=== PATIENT | female | born 1990 | race Caucasian/White ===

== ENCOUNTER 2016-11-07 06:27 | Inpatient (IN) | payer OTHER ==
[2016-11-07 07:08] LABS: AMNISURE (ROM) POSITIVE (NEGATIVE)
[2016-11-07 07:11] LABS: APPEARANCE,URINE SLIGHTLY-CLOUDY; BILIRUBIN,URINE NEGATIVE (NEGATIVE); GLUCOSE, URINE NEGATIVE (NEGATIVE); KETONES,URINE NEGATIVE (NEGATIVE); LEUKOCYTE ESTERASE,URINE NEGATIVE (NEGATIVE); NITRITE,URINE NEGATIVE (NEGATIVE); PROTEIN,URINE NEGATIVE (NEGATIVE); URINE SPECIFIC GRAVITY 1.005; UROBILINOGEN,URINE NEGATIVE mg/dL (<2.0)
[2016-11-07] MEDS ORDERED: BUPIVACAINE HCL 0.25 % INJ/PF (2.5 MG/1 ML) 30 ML VIAL INFIL ONE (07:16)
[2016-11-07] MEDS ORDERED: FENTANYL/BUPIVACAINE/NS/PF 100 ML EPI PRN (07:16)
[2016-11-07] MEDS ORDERED: BENZOIN/ALOE VERA/STORAX/TOLU TINCTURE 60 ML TP PRN (07:16)
[2016-11-07] MEDS: RINGERS SOLUTION,LACTATED 1,000 ML IV PRN ×3 (07:24→12:01)
[2016-11-07] MEDS ORDERED: FENTANYL/BUPIVACAINE/NS/PF 200 MCG/100 ML RTUINJ EPI ONE (07:30)
[2016-11-07] MEDS ORDERED: BUPIVACAINE HCL 0.25 % INJ/PF (2.5 MG/1 ML) 30 ML VIAL ONE (07:30)
[2016-11-07] MEDS ORDERED: EPHEDRINE SULFATE INJ 50 MG/1 ML AMPULE ONE (07:30)
[2016-11-07 07:45] LABS: ABSOLUTE BASOPHILS # (AUTO) 0.1 10^3/uL (0.0-0.2); ABSOLUTE EOSINOPHILS # (AUTO) 0.1 10^3/uL (0.0-0.6); ABSOLUTE LYMPHOCYTES (AUTO) 2.6 10^3/uL (0.5-4.7); ABSOLUTE MONOCYTES (AUTO) 0.9 10^3/uL (0.1-1.4); ABSOLUTE NEUT (AUTO) 8.4 10^3/uL (1.7-8.2); BASOPHILS % (AUTO) 0.5 % (0-2); EOSINOPHILS % (AUTO) 1.2 % (0-6); HEMATOCRIT 33.3 % (36.0-47.0); HEMOGLOBIN 11.4 g/dL (12.0-15.5); HGB HCT DIFFERENCE 0.9; LYMPHOCYTES % (AUTO) 21.8 % (13-45); MEAN CORPUSCULAR HEMOGLOBIN 29.7 pg (27.0-33.4); MEAN CORPUSCULAR HGB CONC 34.2 g/dL (32.0-36.0); MEAN CORPUSCULAR VOLUME 87 fl (80-97); RED BLOOD COUNT 3.84 10^6/uL (3.72-5.28); RED CELL DISTRIBUTION WIDTH 12.8 % (11.5-14.0); SEGMENTED NEUTROPHILS % (AUTO) 69.5 % (42-78); WHITE BLOOD COUNT 12.1 10^3/uL (4.0-10.5)
--- NOTE | 2016-11-07 08:01 | L&D Flow Sheet ---
LD Flowsheet Datetime Report Generated by CPN: 11/07/2016 08:00 Datetime: 11/07/2016 07:58 Procedure TIME OUT Procedure Type: Epidural (Amira King RN) Procedure Verify: Correct Patient Identity; Correct Side and Site are Marked; Accurate Procedure Consent Form; Agreement on Procedure to be Done; Correct Patient Position; Relevant Images and Results are Properly Labeled and Displayed; Addressed Need to Administer Antibiotics or Fluids for Irrigation; Safety Precautions Based on Patient History or Medication Use (Amira Fernando, RN) Anesthesia Anesthesia Plans: Epidural (Amira King, RN) Epidural Positioning: Sitting (Amira King, RN) Anesthesia Comments: Dr Estrada at Bedside (Amira King RN) Datetime: 11/07/2016:48 Procedure TIME OUT Procedure Type: Epidural (Amira King, DALY) Procedure Verify: Correct Patient Identity; Accurate Procedure Consent Form; Agreement on Procedure to be Done; Relevant Images and Results are Properly Labeled and Displayed; Addressed Need to Administer Antibiotics or Fluids for Irrigation; Safety Precautions Based on Patient History or Medication Use (Amirarachel King, RN) Anesthesia Anesthesia Plans: Epidural (Amira King RN) Anesthesia Comments: Dr Sean notified of epidural request (Amira KingDALY) Datetime: 11/07/2016 07:30 Uterine Activity Monitor Mode: External; Palpation (Mitali Will RN) Frequency (min): 2-4 (Mitali Will RN) Quality: Moderate (Mitali Will RN) Duration (sec): 60-90 (Mitlai Baidy, RN) Duration Criteria: Less than Two 120 Second Contractions (Mitali Will, RN) Pattern: Normal: <= 5 Contractions in 10 Minutes (Mitali Will, RN) Resting Tone (Palpate): Relaxed (Mitali Will, RN) Assessment A Monitor Mode: External US (Mitali Will, RN) FHR Baseline Rate : 130 (Mitali Will, RN) Variability: Minimal - Undetectable to <=5 bpm (Mitali Will, RN) Accelerations: 15X15 (Mitali Will, RN) Decelerations: Variable (Mitali Will, RN) Datetime: 11/07/2016 07:25 Anesthesia Comments: requesting epidural, ivf bolus intitiated (Anum Kosstefan, RN) Communication Communication Comments: Report to RN Fernando, Care relinquished. (Anum Kossmann, RN) Datetime: 11/07/2016 07:24 Patient Care IV/Blood Work: IV Started; IV Bolus Started (Amira Fernando, RN) Patient Care Comments: LR IVF bolus for epidural started (Amira Fernando, RN) Procedure TIME OUT Procedure Type: Epidural (Amira Fernando, RN) Procedure Verify: Correct Patient Identity; Accurate Procedure Consent Form; Agreement on Procedure to be Done; Addressed Need to Administer Antibiotics or Fluids for Irrigation; Safety Precautions Based on Patient History or Medication Use (Amira Fernando, RN) Anesthesia Anesthesia Plans: Epidural (Amira Fernando, RN) Datetime: 11/07/2016:55 Vital Signs NBP Sys/Ilana/Mean (mmHg): 118 (QS system process) : 76 (QS system process) : 92 (QS system process) Pulse: 120 (QS system process) Datetime: 11/07/2016 06:50 Vaginal Exam Dilatation (cm): 3.0 (Anum Trinh RN) Effacement (%): 50 (Anum Trinh RN) Station: -3 (Anum Trinh RN) Exam by: daly trinh (Anum Trinh RN) Membrane Status: Ruptured (Anum Trinh RN) Membranes Ruptured Date/Time: 11/07/2016 05:00 (Anum Trinh RN) Membranes Rupture Method: Spontaneous (Anum Trinh RN) Amniotic Fluid Color: Clear (Anum Trinh RN) Amniotic Fluid Amount: Small (Anum Trinh RN) Amniotic Fluid Odor: Normal (Anum Trinh RN) Roman's Score Dilatation (cm): 3-4 cms (Anum Kossmann, RN) Effacement: 40-50_ effaced (Anum Kossmann, RN) Station: minus 3 (Anum Kossmann, RN) Consistency: Medium (Anum Kossmann, RN) Position: Posterior (Anum Kossmann, RN) Total Roman's Score: 4 (QS system process) : 0-4 = Unfavorable cervix (QS system process) Datetime: 11/07/2016 06:45 Frequency (min): 3-4minutes (Anum Kossmann, RN) Pain Pain Scale: 3 (Anum Trinh RN) Pain Presence: Intermittent (Anum Trinh RN) Pain Type: Contraction (Anum Trinh RN) Pain Location: Abdomen; Back (Anum Trinh RN) Pain Relief Measures: Comfort Measures (Anum Trinh RN) Pain Coping: Talking Through Contractions; Breathing Through Contractions (Anum Trinh RN) Vaginal Bleeding: Scant (Anum Trinh RN) Maternal Assessment Level of Consciousness: Fully Conscious (Anum Trinh RN) DTR's/Clonus: DTRs 2+; No Clonus (Anum Trinh RN) Headache: Denies (Anum Trinh RN) Breath Sounds, Left: Clear and Equal (Anum Trinh RN) Breath Sounds, Right: Clear and Equal (Anum Trinh RN) Nausea/Vomiting: Denies (Anum Trinh RN) RUQ Epigastric Pain: Denies (Anum Trinh RN)
[2016-11-07] MEDS ORDERED: OXYTOCIN/NORMAL SALINE 20 UNIT/1,000 ML RTUINJ ONE (10:20)
[2016-11-07] MEDS ORDERED: MISOPROSTOL 0.2 MG TABLET ONE (10:20)
--- NOTE | 2016-11-07 12:00 | L&D Progress Notes ---
PROGRESS NOTES Datetime Report Generated by CPN: 11/07/2016 12:00 PROGRESS NOTE Impression: Reassuring Heart Rate Procedures: Sterile Vag Exam Plan: Augmentation Vital Signs : Reviewed; Within Normal Limits Comment: Pitocin VAGINAL EXAM Dilatation: 6 Dilatation: 3 Effacement: 80 Effacement: 50 Station: -1 Station: -3 Contractions: 2-4 MEMBRANES Membranes: Ruptured Amniotic Fluid Color: Clear Amniotic Fluid Color: Clear FETUS A FHR - Baseline: 135 Monitoring: External US Accelerations: 15X15 Decelerations: None FHR Category: Category I Estimated Weight (gm): 3400 Presentation: Vertex SIGNATURE SIGNATURE: [id number] Assignment: Mika Carter DO Signature: with User ID: [email or web address] : with User ID: Chrissy
--- NOTE | 2016-11-07 12:01 | L&D Flow Sheet ---
LD Flowsheet Datetime Report Generated by CPN: 11/07/2016 12:00 Datetime: 11/07/2016 11:56 Pitocin (milliunit): Pitocin Started (milliunits) @ 2 (Amira King RN) Datetime: 11/07/2016 11:50 Dilatation (cm): 6.0 (Amira King RN) Effacement (%): 80 (Amira King RN) Station: -1 (Amira King RN) Exam by: Maritza aHhn CNM (Amira King RN) Vaginal Bleeding: Normal Show (Amira King RN) Cervix, Consistency: Soft (Amira King RN) Cervix, Position: Anterior (Amira King RN) Communication Comments: Maritza Hahn CNM at bedside (Amira Kign RN) Datetime: 11/07/2016 11:45 NBP Sys/Ilana/Mean (mmHg): 118 (QS system process) : 73 (QS system process) : 90 (QS system process) Pulse: 100 (QS system process) Respirations: 16 (Amira King RN) Monitor Mode: External; Palpation (Amira King RN) Frequency (min): 2-4 (Amira King RN) Quality: Moderate (Amira King RN) Duration (sec): 50-80 (Amira King RN) Resting Tone (Palpate): Relaxed (Amira King RN) Monitor Mode: External US (Amira King RN) FHR Baseline Rate : 135 (Amira King RN) Variability: Moderate 6-25 bpm (Amira King RN) Accelerations: 15X15 (Amira King RN) Decelerations: None (Amira King RN) LaborFlag: Labor (QS system process) Datetime: 11/07/2016 11:30 NBP Sys/Ilana/Mean (mmHg): 132 (QS system process) : 78 (QS system process) : 100 (QS system process) Pulse: 96 (QS system process) Respirations: 16 (Amira Fernando, RN) Monitor Mode: External; Palpation (Amirarachel King, RN) Frequency (min): 2-4 (Amira Fernando, RN) Quality: Moderate (Amira Fernando, RN) Duration (sec): 50-70 (Amira Fernando, RN) Resting Tone (Palpate): Relaxed (Amirarachel King, RN) Monitor Mode: External US (Amira King, RN) FHR Baseline Rate : 135 (Amira Fernando, RN) Variability: Moderate 6-25 bpm (Amira Fernando, RN) Accelerations: 15X15 (Amira Fernando, RN) Decelerations: None (Amira Fernando, RN) LaborFlag: Labor (QS system process) Datetime: 11/07/2016 11:18 NBP Sys/Ilana/Mean (mmHg): 128 (QS system process) : 79 (QS system process) : 97 (QS system process) Pulse: 96 (QS system process) Respirations: 16 (Amira Fernando, RN) LaborFlag: Labor (QS system process) Datetime: 11/07/2016 11:15 Monitor Mode: External; Palpation (Amira Fernando, RN) Frequency (min): 3-5 (Amira Fernando, RN) Quality: Moderate (Amira Fernando, RN) Duration (sec): 50-70 (Amira Fernando, RN) Resting Tone (Palpate): Relaxed (Amira Fernando, RN) Monitor Mode: External US (Amira Fernando, RN) FHR Baseline Rate : 135 (Amira Fernando, RN) Variability: Moderate 6-25 bpm (Amira Fernando, RN) Accelerations: 10X10 (Amira Fernando, RN) Decelerations: Early (Amira Fernando, RN) Datetime: 11/07/2016 11:03 NBP Sys/Ilana/Mean (mmHg): 123 (QS system process) : 78 (QS system process) : 96 (QS system process) Pulse: 90 (QS system process) Respirations: 18 (Amira Fernando, RN) LaborFlag: Labor (QS system process) Datetime: 11/07/2016 11:00 Monitor Mode: External; Palpation (Amira Fernando, RN) Frequency (min): 3-4 (Amira Fernando, RN) Quality: Moderate (Amira Fernando, RN) Duration (sec): 50-70 (Amira Fernando, RN) Resting Tone (Palpate): Relaxed (Amira Fernando, RN) Monitor Mode: External US (Amira Fernando, RN) FHR Baseline Rate : 135 (Amira Fernando, RN) Variability: Moderate 6-25 bpm (Amira Fernando, RN) Decelerations: Early (Amira Fernando, RN) Datetime: 11/07/2016 10:49 NBP Sys/Ilana/Mean (mmHg): 122 (QS system process) : 75 (QS system process) : 94 (QS system process) Pulse: 82 (QS system process) Respirations: 18 (Amira Fernando, RN) LaborFlag: Labor (QS system process) Datetime: 11/07/2016 10:45 Monitor Mode: External; Palpation (Amira Fernando, RN) Frequency (min): 2-4 (Amira Fernando, RN) Quality: Moderate (Amira Fernando, RN) Duration (sec): 50-70 (Amira Fernando, RN) Resting Tone (Palpate): Relaxed (Amira Fernando, RN) Monitor Mode: External US (Amira Fernando, RN) FHR Baseline Rate : 135 (Amira Fernando, RN) Variability: Moderate 6-25 bpm (Amira Fernando, RN) Accelerations: 15X15 (Amira Fernando, RN) Decelerations: Early (Amira Fernando, RN) Datetime: 11/07/2016 10:43 Notification Reason: Status Update; Status; Labor Status; Uterine Activity; Other (Amirarachel King, RN) Communication Comments: Maritza Hahn CNM at desk. Informed about SVE, no new orders received. Will continue to monitor. (Amira Fernando, RN) Datetime: 11/07/2016 10:37 Monitor Interventions for UA: [place] Adjusted (Amira King RN) Patient Position/Activity: Right Lateral; Peanut Ball (Amira King RN) Datetime: 11/07/2016 10:35 NBP Sys/Ilana/Mean (mmHg): 114 (QS system process) : 82 (QS system process) : 93 (QS system process) Pulse: 97 (QS system process) Respirations: 18 (Amira King RN) LaborFlag: Labor (QS system process) Datetime: 11/07/2016 10:34 Dilatation (cm): 6.0 (Amira King RN) Effacement (%): 80 (Amira King RN) Station: 0 (Amira King RN) Exam by: José King RNC (Amira King RN) Vaginal Bleeding: Normal Show (Amira King RN) Cervix, Consistency: Moderate (Amira King RN) Cervix, Position: Anterior (Amira King RN) Hygiene: Radha Care; Underpad Changed (Amira King RN) Datetime: 11/07/2016 10:30 Monitor Mode: External; Palpation (Amira King RN) Frequency (min): 3-4 (Amira King RN) Quality: Moderate (Amira King RN) Duration (sec): 50-70 (Amira King RN) Resting Tone (Palpate): Relaxed (Amira King RN) Monitor Mode: External US (Amira King RN) FHR Baseline Rate : 125 (Amira King RN) Variability: Moderate 6-25 bpm (Amira King RN) Accelerations: 10X10 (Amira King RN) Decelerations: None (Amira King RN) Datetime: 11/07/2016 10:18 NBP Sys/Ilana/Mean (mmHg): 111 (QS system process) : 65 (QS system process) : 82 (QS system process) Pulse: 93 (QS system process) Respirations: 16 (Amira Fernando, RN) LaborFlag: Labor (QS system process) Datetime: 11/07/2016 10:15 Monitor Mode: External; Palpation (Amira King RN) Frequency (min): 2 (Amira King RN) Quality: Moderate (Amira King RN) Duration (sec): 50-70 (Amira King RN) Resting Tone (Palpate): Relaxed (Amira King RN) Monitor Mode: External US (Amira King RN) FHR Baseline Rate : 135 (Amira King, RN) Variability: Moderate 6-25 bpm (Amira Fernando, RN) Accelerations: 10X10 (Amira Fernando, RN) Decelerations: None (Amirarachel King, RN) Datetime: 11/07/2016 10:03 NBP Sys/Ilana/Mean (mmHg): 114 (QS system process) : 68 (QS system process) : 86 (QS system process) Pulse: 76 (QS system process) Respirations: 18 (Amira King RN) Temperature (F): 98.3 (Amirarachel King, RN) Temperature (C): 36.8 (QS system process) Temperature Route: Oral (Amira King, RN) LaborFlag: Labor (QS system process) Datetime: 11/07/2016 10:00 Monitor Mode: External; Palpation (Amirarachel King, RN) Frequency (min): 2-4 (Amira Fernando, RN) Quality: Moderate (Amira Fernando, RN) Duration (sec): 50-70 (Amira Fernando, RN) Resting Tone (Palpate): Relaxed (Amira Fernando, RN) Monitor Mode: External US (Amira Fernando, RN) FHR Baseline Rate : 130 (Amira Fernando, RN) Variability: Moderate 6-25 bpm (Amira Fernando, RN) Accelerations: 10X10 (Amira Fernando, RN) Decelerations: None (Amira Fernando, RN) Datetime: 11/07/2016 09:54 Patient Position/Activity: Left Lateral; Peanut Ball (Amira Fernando, RN) Datetime: 11/07/2016 09:48 NBP Sys/Ilana/Mean (mmHg): 126 (QS system process) : 74 (QS system process) : 95 (QS system process) Pulse: 76 (QS system process) LaborFlag: Labor (QS system process) Datetime: 11/07/2016 09:45 Monitor Mode: External; Palpation (Amira Fernando, RN) Frequency (min): 2-3 (Amira King, RN) Quality: Moderate (Amirarachel King, RN) Duration (sec): 50-70 (Amirarachel King, RN) Resting Tone (Palpate): Relaxed (Amirarachel King, RN) Monitor Mode: External US (Amira King, RN) FHR Baseline Rate : 125 (Amirarachel King, RN) Variability: Minimal - Undetectable to <=5 bpm (Amira Fernando, RN) Decelerations: Early (Amira Fernando, RN) Datetime: 11/07/2016 09:34 NBP Sys/Ilana/Mean (mmHg): 124 (QS system process) : 74 (QS system process) : 94 (QS system process) Pulse: 76 (QS system process) LaborFlag: Labor (QS system process) Datetime: 11/07/2016 09:30 Monitor Mode: External; Palpation (Amira King RN) Frequency (min): 2-3 (Amira King RN) Quality: Moderate (Amirarachel King, RN) Duration (sec): 50-70 (Amira King, RN) Resting Tone (Palpate): Relaxed (Amira King RN) Monitor Mode: External US (Amira King, RN) FHR Baseline Rate : 130 (Amirarachel King, RN) Variability: Minimal - Undetectable to <=5 bpm (Amira Fernando, RN) Decelerations: Early; Variable (Amira Fernando, RN) Datetime: 11/07/2016 09:19 NBP Sys/Ilana/Mean (mmHg): 125 (QS system process) : 66 (QS system process) : 90 (QS system process) Pulse: 80 (QS system process) Respirations: 18 (Amira Fernando, RN) LaborFlag: Labor (QS system process) Datetime: 11/07/2016 09:15 Monitor Mode: External; Palpation (Amira Fernando, RN) Frequency (min): 2-3 (Amira Fernando, RN) Quality: Moderate (Amira Fernando, RN) Duration (sec): 50-70 (Amira Fernando, RN) Resting Tone (Palpate): Relaxed (Amira Fernando, RN) Monitor Mode: External US (Amira Fernando, RN) FHR Baseline Rate : 130 (Amira Fernando, RN) Variability: Minimal - Undetectable to <=5 bpm (Amira Fernando, RN) Decelerations: Early; Variable (Amira Fernando, RN) Datetime: 11/07/2016 09:14 Patient Position/Activity: Right Lateral; Peanut Ball (Amira Fernando, RN) Datetime: 11/07/2016 09:12 Hygiene: Radha Care; Underpad Changed (Amira Fernando, RN) Datetime: 11/07/2016 09:03 NBP Sys/Ilana/Mean (mmHg): 115 (QS system process) : 66 (QS system process) : 86 (QS system process) Pulse: 89 (QS system process) LaborFlag: Labor (QS system process) Datetime: 11/07/2016 09:00 Monitor Mode: External; Palpation (Amira Fernando, RN) Frequency (min): 2-3 (Amira Fernando, RN) Quality: Moderate (Amira Fernando, RN) Duration (sec): 50-70 (Amira Fernando, RN) Resting Tone (Palpate): Relaxed (Amira Fernando, RN) Monitor Mode: External US (Amira Fernando, RN) FHR Baseline Rate : 130 (Amira Fernando, RN) Variability: Minimal - Undetectable to <=5 bpm (Amira Fernando, RN) Accelerations: 10X10 (Amira Fernando, RN) Decelerations: Early (Amira Fernando, RN) Datetime: 11/07/2016 08:49 NBP Sys/Ilana/Mean (mmHg): 117 (QS system process) : 60 (QS system process) : 83 (QS system process) Pulse: 78 (QS system process) LaborFlag: Labor (QS system process) Datetime: 11/07/2016 08:45 Monitor Mode: External; Palpation (Amira Fernando, RN) Frequency (min): 2-3 (Amira Fernando, RN) Quality: Moderate (Amira Fernando, RN) Duration (sec): 50-70 (Amira Fernando, RN) Resting Tone (Palpate): Relaxed (Amira Fernando, RN) Monitor Mode: External US (Amira Fernando, RN) FHR Baseline Rate : 130 (Amira Fernando, RN) Variability: Moderate 6-25 bpm (Amira Fernando, RN) Accelerations: 15X15 (Amira Fernadno, RN) Decelerations: Early (Amira Fernando, RN) Datetime: 11/07/2016 08:33 NBP Sys/Ilana/Mean (mmHg): 121 (QS system process) : 52 (QS system process) : 71 (QS system process) Pulse: 90 (QS system process) Respirations: 18 (Amira Fernando, RN) LaborFlag: Labor (QS system process) Datetime: 11/07/2016 08:32 NBP Sys/Ilana/Mean (mmHg): 127 (QS system process) : 74 (QS system process) : 96 (QS system process) Pulse: 86 (QS system process) LaborFlag: Labor (QS system process) Datetime: 11/07/2016 08:31 NBP Sys/Ilana/Mean (mmHg): 134 (QS system process) : 68 (QS system process) : 92 (QS system process) Pulse: 74 (QS system process) LaborFlag: Labor (QS system process) Datetime: 11/07/2016 08:30 NBP Sys/Ilana/Mean (mmHg): 139 (QS system process) : 70 (QS system process) : 95 (QS system process) Pulse: 88 (QS system process) Respirations: 16 (Amira King RN) Temperature (F): 98.5 (Amira King RN) Temperature (C): 36.9 (QS system process) Temperature Route: Oral (Amira King RN) Monitor Mode: External; Palpation (Amira King RN) Frequency (min): 2-3 (Amira King RN) Quality: Moderate (Amira King RN) Duration (sec): 50-70 (Amira King RN) Resting Tone (Palpate): Relaxed (Amira King RN) Monitor Mode: External US (Amira King RN) FHR Baseline Rate : 130 (Amira King RN) Variability: Moderate 6-25 bpm (Amira King RN) Accelerations: 15X15 (Amira King RN) Decelerations: Early (Amira King RN) Patient Position/Activity: Left Tilt (Amira King RN) LaborFlag: Labor (QS system process) Datetime: 11/07/2016 08:29 NBP Sys/Ilana/Mean (mmHg): 128 (QS system process) : 69 (QS system process) : 92 (QS system process) Pulse: 75 (QS system process) LaborFlag: Labor (QS system process) Datetime: 11/07/2016 08:28 NBP Sys/Ilana/Mean (mmHg): 127 (QS system process) : 72 (QS system process) : 93 (QS system process) Pulse: 80 (QS system process) LaborFlag: Labor (QS system process) Datetime: 11/07/2016 08:27 NBP Sys/Ilana/Mean (mmHg): 130 (QS system process) : 73 (QS system process) : 95 (QS system process) Pulse: 81 (QS system process) Respirations: 18 (Amira Feranndo, RN) LaborFlag: Labor (QS system process) Datetime: 11/07/2016 08:26 NBP Sys/Ilana/Mean (mmHg): 129 (QS system process) : 73 (QS system process) : 94 (QS system process) Pulse: 77 (QS system process) LaborFlag: Labor (QS system process) Datetime: 11/07/2016 08:25 NBP Sys/Ilana/Mean (mmHg): 123 (QS system process) : 76 (QS system process) : 95 (QS system process) Pulse: 77 (QS system process) LaborFlag: Labor (QS system process) Datetime: 11/07/2016 08:24 NBP Sys/Ilana/Mean (mmHg): 133 (QS system process) : 77 (QS system process) : 98 (QS system process) Pulse: 80 (QS system process) Respirations: 16 (Amira King RN) Pain Scale: 0 (Amira King RN) Pain Presence: None/Denies (Amira King RN) Pain Type: N/A (Amira King RN) Pain Goal: 2 (Amira King RN) Pain Assessment Comments: Patient comfortable w/ ctx (Amira King RN) Dilatation (cm): 3.0 (Amira King, RN) Effacement (%): 70 (Amira King, RN) Station: -1 (Amira King, RN) Exam by: José King RNC (Amira King, RN) Vaginal Bleeding: None (Amira King, RN) Cervix, Consistency: Moderate (Amira King, RN) Cervix, Position: Midposition (Amira King, RN) I/O Interventions: Rashid Cath Inserted (Amira King, RN) Patient Care Comments: 14Fr Rashid cath inserted under sterile technique w/ clear yellow urine returned, secured th left leg set to gravity drainage (Amira King, RN) LaborFlag: Labor (QS system process) Datetime: 11/07/2016 08:23 NBP Sys/Ilana/Mean (mmHg): 134 (QS system process) : 77 (QS system process) : 101 (QS system process) Pulse: 72 (QS system process) LaborFlag: Labor (QS system process) Datetime: 11/07/2016 08:22 NBP Sys/Ilana/Mean (mmHg): 131 (QS system process) : 81 (QS system process) : 101 (QS system process) Pulse: 92 (QS system process) LaborFlag: Labor (QS system process) Datetime: 11/07/2016 08:21 NBP Sys/Ilana/Mean (mmHg): 128 (QS system process) : 79 (QS system process) : 98 (QS system process) Pulse: 82 (QS system process) Respirations: 18 (Amiar King, RN) LaborFlag: Labor (QS system process) Datetime: 11/07/2016 08:20 NBP Sys/Ilana/Mean (mmHg): 123 (QS system process) : 73 (QS system process) : 93 (QS system process) Pulse: 75 (QS system process) LaborFlag: Labor (QS system process) Datetime: 11/07/2016 08:19 NBP Sys/Ilana/Mean (mmHg): 131 (QS system process) : 75 (QS system process) : 98 (QS system process) Pulse: 75 (QS system process) Respirations: 18 (Amira King RN) LaborFlag: Labor (QS system process) Datetime: 11/07/2016 08:18 NBP Sys/Ilana/Mean (mmHg): 130 (QS system process) : 73 (QS system process) : 94 (QS system process) Pulse: 88 (QS system process) LaborFlag: Labor (QS system process) Datetime: 11/07/2016 08:17 NBP Sys/Ilana/Mean (mmHg): 128 (QS system process) : 81 (QS system process) : 99 (QS system process) Pulse: 88 (QS system process) Respirations: 15 (Amira Fernando, RN) LaborFlag: Labor (QS system process) Datetime: 11/07/2016 08:16 NBP Sys/Ilana/Mean (mmHg): 131 (QS system process) : 78 (QS system process) : 98 (QS system process) Pulse: 85 (QS system process) LaborFlag: Labor (QS system process) Datetime: 11/07/2016 08:15 NBP Sys/Ilana/Mean (mmHg): 130 (QS system process) : 71 (QS system process) : 95 (QS system process) Pulse: 79 (QS system process) Monitor Mode: External; Palpation (Amira King, RN) Frequency (min): 2-5 (Amira King, RN) Quality: Moderate (Amira King, RN) Duration (sec): 50-70 (Amirarachel King, RN) Resting Tone (Palpate): Relaxed (Amira King, RN) Monitor Mode: External US (Amira King, RN) FHR Baseline Rate : 140 (Amirarachel King, RN) Variability: Moderate 6-25 bpm (Amira Fernando, RN) Accelerations: 15X15 (Amira Fernando, RN) Decelerations: None (Amira Fernando, RN) LaborFlag: Labor (QS system process) Datetime: 11/07/2016 08:14 NBP Sys/Ilana/Mean (mmHg): 134 (QS system process) : 73 (QS system process) : 99 (QS system process) Pulse: 109 (QS system process) Patient Position/Activity: Right Tilt; Supine (Amira King RN) LaborFlag: Labor (QS system process) Datetime: 11/07/2016 08:13 NBP Sys/Ilana/Mean (mmHg): 140 (QS system process) : 88 (QS system process) : 108 (QS system process) Pulse: 88 (QS system process) LaborFlag: Labor (QS system process) Datetime: 11/07/2016 08:12 NBP Sys/Ilana/Mean (mmHg): 140 (QS system process) : 90 (QS system process) : 106 (QS system process) Pulse: 86 (QS system process) Respirations: 16 (Amira King RN) LaborFlag: Labor (QS system process) Datetime: 11/07/2016 08:11 NBP Sys/Ilana/Mean (mmHg): 140 (QS system process) : 86 (QS system process) : 108 (QS system process) Pulse: 90 (QS system process) Pulse: 88 (QS system process) SpO2 (%): 100 (QS system process) LaborFlag: Labor (QS system process) Datetime: 11/07/2016 08:10 NBP Sys/Ilana/Mean (mmHg): 157 (QS system process) : 89 (QS system process) : 115 (QS system process) Pulse: 77 (QS system process) Epidural Procedure: Cath Placed (Amira King RN) LaborFlag: Labor (QS system process) Datetime: 11/07/2016 08:09 Epidural Procedure: Test Dose (Amira Fernando, RN) Datetime: 11/07/2016 08:06 Pulse: 85 (QS system process) SpO2 (%): 100 (QS system process) LaborFlag: Labor (QS system process) Datetime: 11/07/2016 08:01 Pulse: 86 (QS system process) SpO2 (%): 100 (QS system process) LaborFlag: Labor (QS system process) Datetime: 11/07/2016 08:00 Monitor Mode: External; Palpation (Amira King RN) Frequency (min): 2 (Amira King RN) Quality: Moderate (Amira King RN) Duration (sec): 50-70 (Amira King RN) Resting Tone (Palpate): Relaxed (Amira King RN) Monitor Mode: External US (Amira King RN) FHR Baseline Rate : 140 (Amira King RN) Variability: Moderate 6-25 bpm (Amira King RN) Accelerations: 15X15 (Amira King RN) Decelerations: Variable (Amira King RN)
[2016-11-07] MEDS ORDERED: OXYTOCIN/NORMAL SALINE 1,000 ML IV PRN ×2 (12:03→14:34)
[2016-11-07] MEDS ORDERED: LIDOCAINE 2% INJ-PF (20 MG/ML) 10 ML AMPUL ONE (12:38)
[2016-11-07] MEDS ORDERED: DIPHENHYDRAMINE HCL 50 MG/ML VIAL ONE (12:52)
[2016-11-07] MEDS ORDERED: DIPHENHYDRAMINE HCL 50 MG/ML VIAL IV ONE (14:00)
[2016-11-07] MEDS ORDERED: DIPH/PERTUSS(ACELL)/TETANUS VAC/PF 0.5 ML SYR (>=10YO) IM PRN (14:34)
[2016-11-07] MEDS ORDERED: DIBUCAINE 1% OINTMENT 28 GM TP PRN (14:34)
[2016-11-07] MEDS ORDERED: BENZOCAINE/MENTHOL AEROSOL SPRAY 56 ML TOP PRN (14:34)
[2016-11-07] MEDS ORDERED: MEASLES,MUMPS&RUBELLA VACC/PF 0.5 ML VIAL SUBCUT PRN (14:34)
[2016-11-07] MEDS ORDERED: ACETAMINOPHEN WITH CODEINE #3 TABLET PO PRN ×2 (14:34)
[2016-11-07] MEDS ORDERED: ZOLPIDEM TARTRATE 5 MG TABLET PO PRN (14:34)
--- NOTE | 2016-11-07 16:01 | L&D Flow Sheet ---
LD Flowsheet Datetime Report Generated by CPN: 11/07/2016 16:00 Datetime: 11/07/2016 15:30 NBP Sys/Ilana/Mean (mmHg): 121 (QS system process) : 71 (QS system process) : 91 (QS system process) Pulse: 83 (QS system process) Datetime: 11/07/2016 15:15 NBP Sys/Ilana/Mean (mmHg): 119 (QS system process) : 72 (QS system process) : 91 (QS system process) Pulse: 85 (QS system process) Datetime: 11/07/2016 15:00 NBP Sys/Ilana/Mean (mmHg): 120 (QS system process) : 64 (QS system process) : 84 (QS system process) Pulse: 171 (QS system process) Datetime: 11/07/2016 14:46 NBP Sys/Ilana/Mean (mmHg): 111 (QS system process) : 69 (QS system process) : 83 (QS system process) Pulse: 91 (QS system process) Respirations: 18 (Amirarachel King, RN) Datetime: 11/07/2016 14:30 NBP Sys/Ilana/Mean (mmHg): 106 (QS system process) : 54 (QS system process) : 74 (QS system process) Pulse: 105 (QS system process) Respirations: 18 (Amira King RN) Temperature (F): 98.4 (Amira King RN) Temperature (C): 36.9 (QS system process) Temperature Route: Oral (Amira King RN) Datetime: 11/07/2016 14:23 NBP Sys/Ilana/Mean (mmHg): 130 (QS system process) : 78 (QS system process) : 97 (QS system process) Pulse: 100 (QS system process) Datetime: 11/07/2016 14:22 Stage of : Recovery (Amira King RN) Respirations: 16 (Amira King RN) Pain Scale: 0 (Amira King RN) Pain Presence: None/Denies (Amira King RN) Pain Type: N/A (Amira King RN) Stage 2 Comments: pitocin bolus started (Amira King RN) Datetime: 11/07/2016 14:17 Vacuum: Off (Amira King RN) Stage 2 Comments: head delivered (Amira King RN) Datetime: 11/07/2016 14:15 NBP Sys/Ilana/Mean (mmHg): 161 (QS system process) : 100 (QS system process) : 121 (QS system process) Pulse: 136 (QS system process) Monitor Mode: External; Palpation (Amira King RN) Frequency (min): 1.5-2 (Amira King RN) Quality: Moderate to Strong (Amira King RN) Duration (sec): 50-70 (Amira King RN) Resting Tone (Palpate): Relaxed (Amira King RN) Monitor Mode: External US (Amira King RN) FHR Baseline Rate : 135 (Amira King RN) Variability: Moderate 6-25 bpm (Amira King RN) Accelerations: 10X10 (Amira Fernando, RN) Decelerations: Early; Variable; Prolonged (Amira Fernando, RN) Pitocin (milliunit): Pitocin Remains (milliunits) @ 4 (Amira King, RN) Vacuum: On (Amira King, RN) LaborFlag: Labor (QS system process) Datetime: 11/07/2016 14:14 Vacuum: Pop Off (Amira Fernando, RN) Datetime: 11/07/2016 14:12 Vacuum: On (Amira Fernando, RN) Datetime: 11/07/2016 14:10 Vacuum: On (Amira King, GANESH) Datetime: 11/07/2016 14:07 Communication Comments: Carter at bedside (Amira King RN) Datetime: 11/07/2016 14:00 Monitor Mode: External; Palpation (Sujatha Contreras RN) Frequency (min): 1.5-2 (Sujatha Contreras RN) Quality: Moderate (Sujatha Contreras RN) Duration (sec): 60-80 (Sujatha Contreras RN) Resting Tone (Palpate): Relaxed (Sujatha Contreras RN) Monitor Mode: External US (Sujatha Contreras RN) FHR Baseline Rate : 140 (Sujatha Contreras RN) Variability: Minimal - Undetectable to <=5 bpm (Sujatha Contreras RN) Accelerations: None (Sujatha Contreras RN) Decelerations: Early; Prolonged (Sujatha Contreras RN) Pitocin (milliunit): Pitocin Remains (milliunits) @ (Annotations: 4) (Amira King RN) Datetime: 11/07/2016 13:54 Pitocin (milliunit): Pitocin Increased to (milliunits) @ 4 (Amira King, RN) Patient Position/Activity: Left Tilt (Amira Fernando, RN) Datetime: 11/07/2016 13:46 Patient Position/Activity: Hands-Knees (Amira Fernando, RN) Datetime: 11/07/2016 13:45 Monitor Mode: External; Palpation (Sujathadanitza Contreras RN) Frequency (min): 1-3 (Sujatha Contreras, RN) Quality: Moderate (Sujatha Contreras RN) Duration (sec): 60-90 (Sujatha Contreras RN) Resting Tone (Palpate): Relaxed (Sujatha Contreras RN) Monitor Mode: External US (Sujatha Contreras RN) FHR Baseline Rate : 140 (Sujatha Contreras RN) Variability: Moderate 6-25 bpm (Sujatha Contreras RN) Accelerations: 15X15 (Sujatha Contreras RN) Decelerations: Variable (Sujatha Contreras RN) Pitocin (milliunit): Pitocin Remains (milliunits) @ (Annotations: 2) (Sujatha Contreras RN) Datetime: 11/07/2016 13:38 Pitocin (milliunit): Pitocin Started (milliunits) @ 2 (Amira King RN) Medication Comments: Per H. Jovani CNM (Amira King RN) Datetime: 11/07/2016 13:37 Pulse: 100 (QS system process) SpO2 (%): 100 (QS system process) LaborFlag: Labor (QS system process) Datetime: 11/07/2016 13:32 Pulse: 109 (QS system process) SpO2 (%): 100 (QS system process) LaborFlag: Labor (QS system process) Datetime: 11/07/2016 13:30 NBP Sys/Ilana/Mean (mmHg): 134 (QS system process) : 69 (QS system process) : 93 (QS system process) Pulse: 122 (QS system process) Monitor Mode: External; Palpation (Mitali Will RN) Frequency (min): 2-3 (Mitali Will RN) Quality: Moderate (Mitali Will RN) Duration (sec): 60-80 (Mitali Will RN) Duration Criteria: Less than Two 120 Second Contractions (Mitali Will RN) Pattern: Normal: <= 5 Contractions in 10 Minutes (Mitali Will RN) Resting Tone (Palpate): Relaxed (Mitali Will RN) Monitor Mode: External US (Mitali Will RN) FHR Baseline Rate : 135 (Mitali Will RN) Variability: Moderate 6-25 bpm (Mitali Will RN) Accelerations: 15X15 (Mitali Will, RN) Decelerations: Early (Mitali Will RN) LaborFlag: Labor (QS system process) Datetime: 11/07/2016 13:27 Pulse: 164 (QS system process) SpO2 (%): 100 (QS system process) LaborFlag: Labor (QS system process) Datetime: 11/07/2016 13:22 Pulse: 102 (QS system process) SpO2 (%): 99 (QS system process) Comments: O2 d/c (Amira King RN) Dilatation (cm): 10.0 (Amira King RN) Effacement (%): 100 (Amira King RN) Station: 0 (Amira King RN) Exam by: Maritza OSMAN (Amira King RN) LaborFlag: Labor (QS system process) Datetime: 11/07/2016 13:17 Pulse: 113 (QS system process) SpO2 (%): 100 (QS system process) LaborFlag: Labor (QS system process) Datetime: 11/07/2016 13:15 NBP Sys/Ilana/Mean (mmHg): 134 (QS system process) : 67 (QS system process) : 94 (QS system process) Pulse: 117 (QS system process) Monitor Mode: External; Palpation (Mitali Will RN) Frequency (min): 2-3 (Mitali Will RN) Quality: Moderate (Mitali Will RN) Duration (sec): 60-90 (Mitali Will RN) Duration Criteria: Less than Two 120 Second Contractions (Mitali Will RN) Pattern: Normal: <= 5 Contractions in 10 Minutes (Mitali Will RN) Resting Tone (Palpate): Relaxed (Mitali Will RN) Monitor Mode: External US (Mitali Will RN) FHR Baseline Changes: Unable to Determine (Mitali Will RN) Variability: Moderate 6-25 bpm (Mitali Will RN) Decelerations: Early; Prolonged (Mitali Will RN) LaborFlag: Labor (QS system process) Datetime: 11/07/2016 13:07 Oxygen Amount : 10 (Amira King, RN) Oxygen Method: Face Mask (Amira King, RN) Patient Position/Activity: Left Tilt (Amira Fernando, RN) Datetime: 11/07/2016 13:05 Comments: RN and provider remain at bedside continuously assessing FHR while pt pushing. (Amira King, RN) Pushing: Coached on Pushing; Urge to Push (Amira King, RN) Pushing Position: Pushing with Contractions (Amira King, RN) Stage 2 Comments: H. Jovani CNM remains at bedside. Patient coached on pushing. (Amira King, RN) Datetime: 11/07/2016 13:04 I/O Interventions: Rashid Discontinued (Amira King, RN) Datetime: 11/07/2016 13:02 Pitocin (milliunit): Pitocin Discontinued (Amira King, RN) Datetime: 11/07/2016 13:01 Dilatation (cm): 9.0 (Amira King RN) Effacement (%): 90 (Amira King RN) Station: 0 (Amira King RN) Exam by: H. Jovani CNM (Amira King RN) Vaginal Bleeding: Moderate (Amira King RN) Datetime: 11/07/2016 13:00 NBP Sys/Ilana/Mean (mmHg): 138 (QS system process) : 86 (QS system process) : 103 (QS system process) Pulse: 82 (QS system process) Monitor Mode: External; Palpation (Mitali Will RN) Frequency (min): 1.5-2.5 (Mitali Will RN) Quality: Moderate (Mitali Will RN) Duration (sec): 70-90 (Mitali Will RN) Duration Criteria: Less than Two 120 Second Contractions (Mitali Will RN) Pattern: Normal: <= 5 Contractions in 10 Minutes (Mitali Will RN) Resting Tone (Palpate): Relaxed (Mitali Will RN) Monitor Mode: External US (Mitali Will RN) FHR Baseline Rate : 130 (Mitali Will RN) Variability: Moderate 6-25 bpm (Mitali Will RN) Accelerations: 15X15 (Mitali Will RN) Decelerations: Early; Late (Mitali Will RN) Pitocin (milliunit): Pitocin Remains (milliunits) @ (Annotations: 2) (Amira King RN) Communication Comments: Maritza Hahn CN (Amira King RN) LaborFlag: Labor (QS system process) Datetime: 11/07/2016 12:59 Pitocin (milliunit): Pitocin Decreased to (milliunits) @ 2 (Amira King RN) IV/Blood Work: IV Bolus Started (Amira King RN) Datetime: 11/07/2016 12:48 NBP Sys/Ilana/Mean (mmHg): 139 (QS system process) : 83 (QS system process) : 105 (QS system process) Pulse: 81 (QS system process) Pitocin (milliunit): Pitocin Increased to (milliunits) @ 4 (Amira King RN) LaborFlag: Labor (QS system process) Datetime: 11/07/2016 12:47 Pain Scale: 3 (Amira King RN) Pain Presence: Intermittent (Amira King RN) Pain Type: Cramping; Contraction (Amira King RN) Pain Location: Abdomen; Back (Amira King RN) Pain Relief Measures: Comfort Measures (Amira King RN) Pain Coping: Breathing Through Contractions (Amira King RN) Pain Assessment Comments: Epidural bolused by Dr Estrada (Amira King RN) Comfort Measures: Breathing/Relaxation; Family Support (Amira King RN) Epidural Procedure Other: Redose (Amira King RN) Anesthesia Comments: Dr Estrada at bedside for epidural bolus (Amira King RN) LaborFlag: Labor (QS system process) Datetime: 11/07/2016 12:46 NBP Sys/Ilana/Mean (mmHg): 120 (QS system process) : 67 (QS system process) : 89 (QS system process) Pulse: 78 (QS system process) LaborFlag: Labor (QS system process) Datetime: 11/07/2016 12:45 Monitor Mode: External; Palpation (Mitali Will RN) Frequency (min): 2-3 (Mitali Will RN) Quality: Moderate (Mitali Will RN) Duration (sec): 70-90 (Mitali Will RN) Duration Criteria: Less than Two 120 Second Contractions (Mitali Will RN) Pattern: Normal: <= 5 Contractions in 10 Minutes (Mitali Will RN) Resting Tone (Palpate): Relaxed (Mitali Will RN) Monitor Mode: External US (Mitali Will RN) FHR Baseline Rate : 135 (Mitali Will, AGNESH) Variability: Moderate 6-25 bpm (Mitali Will, RN) Accelerations: 15X15 (Mitali Will RN) Decelerations: Early (Mitali Will RN) Pitocin (milliunit): Pitocin Remains (milliunits) @ (Annotations: 2 ) (Amira King RN) Datetime: 11/07/2016 12:35 Dilatation (cm): 6.0 (Amira King RN) Effacement (%): 90 (Amira King RN) Station: 0 (Amira King RN) Exam by: José King RN (Amira King RN) Vaginal Bleeding: Normal Show (Amira King RN) Cervix, Position: Anterior (Amira King, GANESH) Datetime: 11/07/2016 12:32 Patient Position/Activity: Left Lateral (Amira King RN) Datetime: 11/07/2016 12:31 NBP Sys/Ilana/Mean (mmHg): 143 (QS system process) : 93 (QS system process) : 113 (QS system process) Pulse: 106 (QS system process) LaborFlag: Labor (QS system process) Datetime: 11/07/2016 12:30 Monitor Mode: External; Palpation (Mitali Will RN) Frequency (min): 3-4 (Mitali Will RN) Quality: Moderate (Mitali Will RN) Duration (sec): 60-90 (Mitali Will RN) Duration Criteria: Less than Two 120 Second Contractions (Mitali Will RN) Pattern: Normal: <= 5 Contractions in 10 Minutes (Mitali Will, GANESH) Resting Tone (Palpate): Relaxed (Mitali Will RN) Monitor Mode: External US (Mitali Will RN) FHR Baseline Rate : 135 (Mitali Will RN) Variability: Moderate 6-25 bpm (Mitali Will RN) Accelerations: None (Mitali Will RN) Decelerations: Early (Mitali Will RN) Pitocin (milliunit): Pitocin Remains (milliunits) @ (Annotations: 2 ) (Amira King RN) Datetime: 11/07/2016 12:15 NBP Sys/Ilana/Mean (mmHg): 140 (QS system process) : 81 (QS system process) : 106 (QS system process) Pulse: 94 (QS system process) Respirations: 16 (Amira King RN) Monitor Mode: External; Palpation (Amira King RN) Frequency (min): 2-5 (Amira King RN) Quality: Moderate (Amira King RN) Duration (sec): 50-70 (Amira King RN) Resting Tone (Palpate): Relaxed (Amira King RN) Monitor Mode: External US (Amira King RN) FHR Baseline Rate : 135 (Amira King RN) Variability: Moderate 6-25 bpm (Amira King RN) Decelerations: Early (Amira King RN) Pitocin (milliunit): Pitocin Remains (milliunits) @ 2 (Amira King RN) LaborFlag: Labor (QS system process) Datetime: 11/07/2016 12:01 NBP Sys/Ilana/Mean (mmHg): 126 (QS system process) : 81 (QS system process) : 99 (QS system process) Pulse: 83 (QS system process) Respirations: 16 (Amira King RN) Temperature (F): 98.3 (Amira King RN) Temperature (C): 36.8 (QS system process) Temperature Route: Oral (Amira King RN) IV/Blood Work: IV Infusing per Order; New IV Bag Hung; IV Bag Number @ 3 (Amira King RN) LaborFlag: Labor (QS system process) Datetime: 11/07/2016 12:00 Monitor Mode: External; Palpation (Amira King RN) Frequency (min): 2-5 (Amira King RN) Quality: Moderate (Amira King RN) Duration (sec): 50-80 (Amira King RN) Resting Tone (Palpate): Relaxed (Amira King RN) Monitor Mode: External US (Amira King RN) FHR Baseline Rate : 130 (Amira King RN) Variability: Moderate 6-25 bpm (Amira King RN) Accelerations: 15X15 (Amira King RN) Decelerations: Early (Amira King RN) Pitocin (milliunit): Pitocin Remains (milliunits) @ 2 (Amira King RN)
--- NOTE | 2016-11-07 16:12 | Delivery Summary ---
Del Sum A-C Datetime Report Generated by CPN: 11/07/2016 16:12 ADMISSION DATA Chief Complaint: Uterine Contractions Indication for Induction: Not Applicable Admission Impression: Term, Intrauterine Admit Provider Comments: Pt presented to L _ D with c/o SROM at 0500, clear fluid uncomplicated care previous full term Denies medical hx GBS negative See hx for complete , medical, surgical hx Admit to L _ D pt may have epidural prn Anticipate DELIVERY PERSONNEL Delivery Doctor:: Mika Carter DO Nurse Back Tender Insulation Board Certified:: Dyan Hahn CNM Labor and Delivery Nurse:: Amira King RNvisual merchandising manager Nurse:: Mitali Will RN Nursery Nurse:: Daja Barnes RN Puttying And Calking Supervisor/DIFFERENTIAL SPECIALIST: Francisco Ortiz, RADHA MATERNAL INFORMATION Delivery Anesthesia: Epidural Medications After Delivery: Pitocin Drip 20 Units/1000ml NSS Estimated Blood Loss (ml): 200 Maternal Complications: None Provider Comments: Vacuum applied, pressure in green, 3 pulls, total time 1 minute, 1 pop off. Vaginal deliver, over intact perieneum, with spontaneous cry and respirations, to maternal abdomen skin to skin. Cord clamped X2, cut free by pts . Spontaneous delivery of intact placenta, via rose mechanism, 3 VC. Vagina and perineum inspected no lacerations noted, small 2 cm hematoma noted on perineum. Hemostasis acheived with external massage and IV pitocin. Mother and in stable condition. LABOR SUMMARY EDC: 11/04/2016 00:00 No. Babies in Womb: 1 Attempted: No Labor Anesthesia: Epidural LABOR INFORMATION Reason for Induction: Not Applicable Onset of Labor: 11/07/2016 04:30 Complete Dilatation: 11/07/2016 13:22 Oxytocin: Augmentation Group B Beta Strep: negative Antibiotics # of Doses: 0 Steroids Given: None Reason Steroids Not Administered: Not Applicable MEMBRANES Membranes Rupture Method: Spontaneous Rupture of Membranes: 11/07/2016 05:00 Length of Rupture (hr): 9.28 Amniotic Fluid Color: Clear Amniotic Fluid Amount: Small Amniotic Fluid Odor: Normal STAGES OF LABOR Stage 1 hr: 8 Stage 1 min: 52 Stage 2 hr: 0 Stage 2 min: 55 Stage 3 hr: 0 Stage 3 min: 5 Total Time in Labor hr: 9 Total Time in Labor min: 52 VAGINAL DELIVERY Episiotomy: None Laceration Extension: N/A Laceration Type: None Laceration Repair: Not Applicable Laceration Repair Note: n/A Sponge Count Correct: Yes Sharps Count Correct: Yes CSECTION DELIVERY Primary Indication: N/A Secondary Indication: N/A CSection Urgency: N/A CSection Incidence: N/A Labor: N/A Elective: N/A CSection Incision: N/A BABY A INFORMATION Delivery Date/Time: 11/07/2016 14:17 Method of Delivery: Vaginal Born in Route : No : N/A Forceps: N/A Vacuum Extraction: Successful Shoulder Dystocia : No ASSISTED DELIVERY BABY A Indication for Assisted Delivery: Maternal Exhaustion Catheter Prior to Procedure: Yes Station Vacuum/Forcep Apply: +2 Position Vacuum/Forcep Apply: Occiput Posterior Vacuum Number of Pulls: 4 Vacuum Number of PopOffs: 1 Vacuum Maximum Pressure Obtained: 550 Reduce Pressure btwn Ctx: No Vacuum Ice Skating Instructor: [place] Total Time Vacuum Applied: 5 PRESENTATION/POSITION BABY A Presentation: Cephalic Cephalic Presentation: Vertex Vertex Position: direct op Breech Presentation: N/A PLACENTA INFORMATION BABY A Placenta Delivery Time : 11/07/2016 14:22 Placenta Method of Delivery: Spontaneous Placenta Status: Delivered SCORES BABY A Heart Rate 1 min: >100 bpm Resp Effort 1 min: Good Cry Reflex Irritability 1 min: Cough or Sneeze or Pulls Away Muscle Tone 1 min: Active Motion Color 1 min: Body [place], Extremities Blue Resuscitation Effort 1 min: Tactile Stimulation SCORE 1 MIN: 9 Heart Rate 5 min: >100 bpm Resp Effort 5 min: Good Cry Reflex Irritability 5 min: Cough or Sneeze or Pulls Away Muscle Tone 5 min: Active Motion Color 5 min: Body [place], Extremities Blue SCORE 5 MIN: 9 INFORMATION BABY A Gestational Age at Delivery: 40.3 Gestational Status: Full Term- 39- 40.6 Weeks Infant Outcome : Liveborn Infant Condition : Stable Sex: Male IDENTIFICATION BABY A Infant Verification Date/Time: 11/07/2016 14:38 ID Band Number: [id number] Mother's Name Verified: Yes Infant RN Verifying Infant: B Baidy RN/M Sal SOFTWARE QUALITY TESTER WEIGHT/LENGTH BABY A Birthweight (gm): 3620 Weight (lb): 8 Weight (oz): 0 Infant Length (in): 20.00 Length (cm): 50.80 CORD INFORMATION BABY A No. Cord Vessels: 3 Nuchal Cord : N/A Cord Blood Taken: Yes-For Eval (Mom's Blood Type - or O+) Infant Suction: None ASSESSMENT BABY A Complications: Multiple Variable Decels Physical Findings at Delivery: Caput Succedaneum; Molding of the Head Respirations: Appears Normal Skin to Skin: Yes Skin to Skin Time (min): 75 Energy Project Manager/ALS Called : No Care By: Cade Barnes RN Transferred To: Remains with Mother BABY B INFORMATION : N/A SIGNATURES Assignment: Mika Carter DO Signature: with User ID: [email or web address] : with User ID: [email or web address]
--- NOTE | 2016-11-07 17:21 | Admission Physical ---
Datetime Report Generated by CPN: 11/07/2016 17:20 CURRENT ADMISSION Hx Assessment: The History has been Reviewed and is Current Chief Complaint: Uterine Contractions Indication for Induction: Not Applicable Admit Plan: Admit to Unit; Initiate Labor Protocol ALLERGIES Medication Allergies: No Medication Allergies: No Known Allergies (11/07/2016) Latex: No Latex Allergies Food Allergies: denies Environmental Allergies: denies OBSTETRICAL HISTORY EDC: 11/04/2016 00:00 : 2 Para: 1 Term: 1 : 0 SAB: 0 IAB: 0 Livin Gestational Diabetes: No Rh Sensitization: No Incompetent Cervix: No QUINTON: No Infertility: No ART Treatment: No Uterine Anomaly: No IUGR: No Hx Previous C/S: No Macrosomia: No Hx Loss/Stillborn: No PIH: Yes Hx : No Placenta Previa/Abruption: No Depression/PP Depression: No PTL/PROM: No Post Hemorrhage: No Current Procedures: Ultrasound; NST Obstetrical History Comments: g1-2013, , 40 week induction, elevated blood pressure, no complications g2-current , no complications SEE RECORDS Alcohol: No Marijuana : No Cocaine: No Other Illicit Drugs: No Cigarettes: Never Smoker. [id number] MEDICAL HISTORY Diabetes: No Blood Transfusion: No Pulmonary Disease (Asthma, TB): No Breast Disease: No Hypertension: No Manager Sharepoint Surgery: No Heart Disease: No Hosp/Surgery: Yes Autoimmune Disorder: No Anesthetic Complications: No Kidney Disease: No Abnormal Pap Smear: No Neuro/Epilepsy: No Psychiatric Disorders: No Other Medical Diseases: No Hepatitis/Liver Disease: No Significant Family History: No Varicosities/Phlebitis: No Trauma/Violence : No Thyroid Dysfunction: No Medical History Comments: x 1 INFECTIOUS HISTORY Gonorrhea: No Genital Herpes: No Chlamydia: No Tuberculosis: No Syphilis: No Hepatitis: No HIV/AIDS Exposure: No Rash or Viral Illness: No HPV: No PHYSICAL EXAM General: Normal HEENT: Normal Neurologic: Normal Thyroid: Deferred Heart: Normal Lungs: Normal Breast: Deferred Back: Normal Abdomen: Normal Genitourinary Exam: Normal Extremities: Normal DTRs: Normal Pelvic Type: Adequate Physical Exam Comments: pelvis proven 6lbs 8oz Vital Signs: Reviewed; Within Normal Limits VAGINAL EXAM Dilatation: 6 Effacement: 80 Station: -1 Contraction Comments: 2-4 MEMBRANES Membranes: Ruptured Amniotic Fluid Color: Clear FETUS A EGA: 40.3 Monitoring: External US FHR- Baseline: 130 Variability: Moderate 6-25bpm Accelerations: 15X15 Decelerations: None FHR Category: Category I Estimated Weight (gm): 3400 Presentation: Vertex Admit Comment: Pt presented to L _ D with c/o SROM at 0500, clear fluid uncomplicated care previous full term Denies medical hx GBS negative See hx for complete , medical, surgical hx Admit to L _ D pt may have epidural prn Anticipate PLANS FOR LABOR AND DELIVERY Labor and Delivery: None Pain Management: Medications; Epidural Feeding Preference: Formula Benefit of Breast Feed Discussed: Yes Circumcision: Yes INFORMED CONSENT Assignment: Mika Carter DO Signature: with User ID: [email or web address] : with User ID: [email or web address]
[2016-11-07] MEDS: DOCUSATE SODIUM 100 MG CAPSULE PO SCH (17:35)
[2016-11-07] MEDS: FERROUS SULFATE 325 MG TABLET PO SCH (17:35)
--- NOTE | 2016-11-07 19:01 | L&D Flow Sheet ---
LD Flowsheet Datetime Report Generated by CPN: 11/07/2016 19:00 Datetime: 11/07/2016 15:30 NBP Sys/Ilana/Mean (mmHg): 121 (QS system process) : 71 (QS system process) : 91 (QS system process) Pulse: 83 (QS system process) Respirations: 16 (Amira Fernando, RN) Datetime: 11/07/2016 15:15 NBP Sys/Ilana/Mean (mmHg): 119 (QS system process) : 72 (QS system process) : 91 (QS system process) Pulse: 85 (QS system process) Respirations: 16 (Amira King, RN) Datetime: 11/07/2016 15:00 NBP Sys/Ilana/Mean (mmHg): 120 (QS system process) : 64 (QS system process) : 84 (QS system process) Pulse: 171 (QS system process) Respirations: 18 (Amira King, RN) Datetime: 11/07/2016 14:46 NBP Sys/Ilana/Mean (mmHg): 111 (QS system process) : 69 (QS system process) : 83 (QS system process) Pulse: 91 (QS system process) Respirations: 18 (Amira Fernando, RN) Datetime: 11/07/2016 14:30 NBP Sys/Ilana/Mean (mmHg): 106 (QS system process) : 54 (QS system process) : 74 (QS system process) Pulse: 105 (QS system process) Respirations: 18 (Amira King RN) Temperature (F): 98.4 (Amira King RN) Temperature (C): 36.9 (QS system process) Temperature Route: Oral (Amira King RN) Datetime: 11/07/2016 14:23 NBP Sys/Ilana/Mean (mmHg): 130 (QS system process) : 78 (QS system process) : 97 (QS system process) Pulse: 100 (QS system process) Datetime: 11/07/2016 14:22 Stage of : Recovery (Amira King RN) Respirations: 16 (Amira King RN) Pain Scale: 0 (Amira King RN) Pain Presence: None/Denies (Amira King RN) Pain Type: N/A (Amira King RN) Stage 2 Comments: pitocin bolus started (Amira King RN) Datetime: 11/07/2016 14:17 Vacuum: Off (Amira King RN) Stage 2 Comments: head delivered (Amira King RN) Datetime: 11/07/2016 14:15 NBP Sys/Ilana/Mean (mmHg): 161 (QS system process) : 100 (QS system process) : 121 (QS system process) Pulse: 136 (QS system process) Monitor Mode: External; Palpation (Amira King RN) Frequency (min): 1.5-2 (Amira King RN) Quality: Moderate to Strong (Amira King RN) Duration (sec): 50-70 (Amira King RN) Resting Tone (Palpate): Relaxed (Amira King RN) Monitor Mode: External US (Amira King RN) FHR Baseline Rate : 135 (Amira Fernando, RN) Variability: Moderate 6-25 bpm (Amira King, RN) Accelerations: 10X10 (Amirarachel King, RN) Decelerations: Early; Variable; Prolonged (Amira King, RN) Pitocin (milliunit): Pitocin Remains (milliunits) @ 4 (Amira King, RN) Vacuum: On (Amirarachel King, RN) LaborFlag: Labor (QS system process) Datetime: 11/07/2016 14:14 Vacuum: Pop Off (Amira Fernando, RN) Datetime: 11/07/2016 14:12 Vacuum: On (Amira Fernando, RN) Datetime: 11/07/2016 14:10 Vacuum: On (Amira King, RN) Datetime: 11/07/2016 14:07 Communication Comments: Dr Carter at bedside (Amira King, RN) Datetime: 11/07/2016 14:00 Monitor Mode: External; Palpation (Sujatha Contreras RN) Frequency (min): 1.5-2 (Sujatha Contreras RN) Quality: Moderate (Sujatha Contreras RN) Duration (sec): 60-80 (Suajtha Contreras RN) Resting Tone (Palpate): Relaxed (Sujatha Contreras RN) Monitor Mode: External US (Sujatha Contreras RN) FHR Baseline Rate : 140 (Sujatha Contreras RN) Variability: Minimal - Undetectable to <=5 bpm (Sujatha Contreras RN) Accelerations: None (Sujatha Contreras RN) Decelerations: Early; Prolonged (Sujatha Contreras, RN) Pitocin (milliunit): Pitocin Remains (milliunits) @ (Annotations: 4) (Amira King, RN) Datetime: 11/07/2016 13:54 Pitocin (milliunit): Pitocin Increased to (milliunits) @ 4 (Amira King, RN) Patient Position/Activity: Left Tilt (Amira King, RN) Datetime: 11/07/2016 13:46 Patient Position/Activity: Hands-Knees (Amira Fernando, RN) Datetime: 11/07/2016 13:45 Monitor Mode: External; Palpation (Sujatha Contreras, RN) Frequency (min): 1-3 (Sujatha Contreras, RN) Quality: Moderate (Sujatha Contreras, RN) Duration (sec): 60-90 (Sujatha Contreras, RN) Resting Tone (Palpate): Relaxed (Sujatha Contreras, RN) Monitor Mode: External US (Sujatha Contreras, RN) FHR Baseline Rate : 140 (Sujatha Contreras, RN) Variability: Moderate 6-25 bpm (Sujatha Contreras, RN) Accelerations: 15X15 (Sujatha Contreras, RN) Decelerations: Variable (Sujatha Contreras, RN) Pitocin (milliunit): Pitocin Remains (milliunits) @ (Annotations: 2) (Sujatha Contreras, RN) Datetime: 11/07/2016 13:38 Pitocin (milliunit): Pitocin Started (milliunits) @ 2 (Amira King RN) Medication Comments: Per H. Jovani CNM (Amira King RN) Datetime: 11/07/2016 13:37 Pulse: 100 (QS system process) SpO2 (%): 100 (QS system process) LaborFlag: Labor (QS system process) Datetime: 11/07/2016 13:32 Pulse: 109 (QS system process) SpO2 (%): 100 (QS system process) LaborFlag: Labor (QS system process) Datetime: 11/07/2016 13:30 NBP Sys/Ilana/Mean (mmHg): 134 (QS system process) : 69 (QS system process) : 93 (QS system process) Pulse: 122 (QS system process) Monitor Mode: External; Palpation (Mitali Will RN) Frequency (min): 2-3 (Mitali Will RN) Quality: Moderate (Mitali Will RN) Duration (sec): 60-80 (Mitali Will RN) Duration Criteria: Less than Two 120 Second Contractions (Mitali Will RN) Pattern: Normal: <= 5 Contractions in 10 Minutes (Mitali Will RN) Resting Tone (Palpate): Relaxed (Mitali Will RN) Monitor Mode: External US (Mitali Will RN) FHR Baseline Rate : 135 (Mitali Will RN) Variability: Moderate 6-25 bpm (Mitali Will RN) Accelerations: 15X15 (Mitali Will RN) Decelerations: Early (Mitali Will RN) LaborFlag: Labor (QS system process) Datetime: 11/07/2016 13:27 Pulse: 164 (QS system process) SpO2 (%): 100 (QS system process) LaborFlag: Labor (QS system process) Datetime: 11/07/2016 13:22 Pulse: 102 (QS system process) SpO2 (%): 99 (QS system process) Comments: O2 d/c (Amira King RN) Dilatation (cm): 10.0 (Amira King RN) Effacement (%): 100 (Amira King RN) Station: 0 (Amira King RN) Exam by: Maritza Hahn CNKaryn (Amira King RN) LaborFlag: Labor (QS system process) Datetime: 11/07/2016 13:17 Pulse: 113 (QS system process) SpO2 (%): 100 (QS system process) LaborFlag: Labor (QS system process) Datetime: 11/07/2016 13:15 NBP Sys/Ilana/Mean (mmHg): 134 (QS system process) : 67 (QS system process) : 94 (QS system process) Pulse: 117 (QS system process) Monitor Mode: External; Palpation (Mitali Will RN) Frequency (min): 2-3 (Mitali Will RN) Quality: Moderate (Mitali Will RN) Duration (sec): 60-90 (Mitali Will RN) Duration Criteria: Less than Two 120 Second Contractions (Mitali Will RN) Pattern: Normal: <= 5 Contractions in 10 Minutes (Mitali Will RN) Resting Tone (Palpate): Relaxed (Mitali Will RN) Monitor Mode: External US (Mitali Will RN) FHR Baseline Changes: Unable to Determine (Mitali Will RN) Variability: Moderate 6-25 bpm (Mitali Will RN) Decelerations: Early; Prolonged (Mitali Will RN) LaborFlag: Labor (QS system process) Datetime: 11/07/2016 13:07 Oxygen Amount : 10 (Amira King RN) Oxygen Method: Face Mask (Amira King RN) Patient Position/Activity: Left Tilt (Amira King RN) Datetime: 11/07/2016 13:05 Comments: RN and provider remain at bedside continuously assessing FHR while pt pushing. (Amira King RN) Pushing: Coached on Pushing; Urge to Push (Amira King RN) Pushing Position: Pushing with Contractions (Amira King RN) Stage 2 Comments: H. Jovani CNM remains at bedside. Patient coached on pushing. (Amira King RN) Datetime: 11/07/2016 13:04 I/O Interventions: Rashid Discontinued (Amira King, RN) Datetime: 11/07/2016 13:02 Pitocin (milliunit): Pitocin Discontinued (Amira King, GANESH) Datetime: 11/07/2016 13:01 Dilatation (cm): 9.0 (Amira King RN) Effacement (%): 90 (Amira King RN) Station: 0 (Amira King RN) Exam by: Maritza OSMAN (Amira King RN) Vaginal Bleeding: Moderate (Amira King RN) Datetime: 11/07/2016 13:00 NBP Sys/Ilana/Mean (mmHg): 138 (QS system process) : 86 (QS system process) : 103 (QS system process) Pulse: 82 (QS system process) Monitor Mode: External; Palpation (Mitali Will RN) Frequency (min): 1.5-2.5 (Mitali Will RN) Quality: Moderate (Mitali Will RN) Duration (sec): 70-90 (Mitali Will RN) Duration Criteria: Less than Two 120 Second Contractions (Mitali Will RN) Pattern: Normal: <= 5 Contractions in 10 Minutes (Mitali Will RN) Resting Tone (Palpate): Relaxed (Mitali Will RN) Monitor Mode: External US (Mitali Will, GANESH) FHR Baseline Rate : 130 (Mitali Will RN) Variability: Moderate 6-25 bpm (Mitali Will RN) Accelerations: 15X15 (Mitali Will RN) Decelerations: Early; Late (Mitali Will, GANESH) Pitocin (milliunit): Pitocin Remains (milliunits) @ (Annotations: 2) (Amira King RN) Communication Comments: Maritza Hahn CNM (Amira King RN) LaborFlag: Labor (QS system process) Datetime: 11/07/2016 12:59 Pitocin (milliunit): Pitocin Decreased to (milliunits) @ 2 (Amira King RN) IV/Blood Work: IV Bolus Started (Amira King RN) Datetime: 11/07/2016 12:48 NBP Sys/Ilana/Mean (mmHg): 139 (QS system process) : 83 (QS system process) : 105 (QS system process) Pulse: 81 (QS system process) Pitocin (milliunit): Pitocin Increased to (milliunits) @ 4 (Amira King RN) LaborFlag: Labor (QS system process) Datetime: 11/07/2016 12:47 Pain Scale: 3 (Amira King RN) Pain Presence: Intermittent (Amira King RN) Pain Type: Cramping; Contraction (Amira King RN) Pain Location: Abdomen; Back (Amira King RN) Pain Relief Measures: Comfort Measures (Amira King RN) Pain Coping: Breathing Through Contractions (Amira King RN) Pain Assessment Comments: Epidural bolused by Dr Estrada (Amira King, GANESH) Comfort Measures: Breathing/Relaxation; Family Support (Amira King RN) Epidural Procedure Other: Redose (Amira King RN) Anesthesia Comments: Dr Estrada at bedside for epidural bolus (Amira King RN) LaborFlag: Labor (QS system process) Datetime: 11/07/2016 12:46 NBP Sys/Ilana/Mean (mmHg): 120 (QS system process) : 67 (QS system process) : 89 (QS system process) Pulse: 78 (QS system process) LaborFlag: Labor (QS system process) Datetime: 11/07/2016 12:45 Monitor Mode: External; Palpation (Mitali Will RN) Frequency (min): 2-3 (Mitali Will RN) Quality: Moderate (Mitali Will RN) Duration (sec): 70-90 (Mitali Will RN) Duration Criteria: Less than Two 120 Second Contractions (Mitali Will RN) Pattern: Normal: <= 5 Contractions in 10 Minutes (Mitali Will RN) Resting Tone (Palpate): Relaxed (Mitali Will RN) Monitor Mode: External US (Mitali Will RN) FHR Baseline Rate : 135 (Mitali Will RN) Variability: Moderate 6-25 bpm (Mitali Will RN) Accelerations: 15X15 (Mitali Will RN) Decelerations: Early (Mitali Will RN) Pitocin (milliunit): Pitocin Remains (milliunits) @ (Annotations: 2 ) (Amira King RN) Datetime: 11/07/2016 12:35 Dilatation (cm): 6.0 (Amira King RN) Effacement (%): 90 (Amira King RN) Station: 0 (Amira King RN) Exam by: José King RN (Amira King RN) Vaginal Bleeding: Normal Show (Amira King RN) Cervix, Position: Anterior (Amira King RN) Datetime: 11/07/2016 12:32 Patient Position/Activity: Left Lateral (Amira King, RN) Datetime: 11/07/2016 12:31 NBP Sys/Ilana/Mean (mmHg): 143 (QS system process) : 93 (QS system process) : 113 (QS system process) Pulse: 106 (QS system process) LaborFlag: Labor (QS system process) Datetime: 11/07/2016 12:30 Monitor Mode: External; Palpation (Mitali Will RN) Frequency (min): 3-4 (Mitali Will RN) Quality: Moderate (Mitali Will RN) Duration (sec): 60-90 (Mitali Will RN) Duration Criteria: Less than Two 120 Second Contractions (Mitali Will RN) Pattern: Normal: <= 5 Contractions in 10 Minutes (Mitali Will RN) Resting Tone (Palpate): Relaxed (Mitali Will RN) Monitor Mode: External US (Mitali Will RN) FHR Baseline Rate : 135 (Mitali Will RN) Variability: Moderate 6-25 bpm (Mitali Will RN) Accelerations: None (Mitali Will RN) Decelerations: Early (Mitali Will RN) Pitocin (milliunit): Pitocin Remains (milliunits) @ (Annotations: 2 ) (Amira King RN) Datetime: 11/07/2016 12:15 NBP Sys/Ialna/Mean (mmHg): 140 (QS system process) : 81 (QS system process) : 106 (QS system process) Pulse: 94 (QS system process) Respirations: 16 (Amira King RN) Monitor Mode: External; Palpation (Amira King RN) Frequency (min): 2-5 (Amira King RN) Quality: Moderate (Amira King RN) Duration (sec): 50-70 (Amira King RN) Resting Tone (Palpate): Relaxed (Amira King RN) Monitor Mode: External US (Amira King RN) FHR Baseline Rate : 135 (Amira King RN) Variability: Moderate 6-25 bpm (Amira King RN) Decelerations: Early (Amira King RN) Pitocin (milliunit): Pitocin Remains (milliunits) @ 2 (Amira King RN) LaborFlag: Labor (QS system process) Datetime: 11/07/2016 12:01 NBP Sys/Ilana/Mean (mmHg): 126 (QS system process) : 81 (QS system process) : 99 (QS system process) Pulse: 83 (QS system process) Respirations: 16 (Amira King RN) Temperature (F): 98.3 (Amira King RN) Temperature (C): 36.8 (QS system process) Temperature Route: Oral (Amira King RN) IV/Blood Work: IV Infusing per Order; New IV Bag Hung; IV Bag Number @ 3 (Amira King RN) LaborFlag: Labor (QS system process) Datetime: 11/07/2016 12:00 Monitor Mode: External; Palpation (Amira King RN) Frequency (min): 2-5 (Amira King RN) Quality: Moderate (Amira King RN) Duration (sec): 50-80 (Amira King RN) Resting Tone (Palpate): Relaxed (Amira King RN) Monitor Mode: External US (Amira King RN) FHR Baseline Rate : 130 (Amira King RN) Variability: Moderate 6-25 bpm (Amira King RN) Accelerations: 15X15 (Amira King RN) Decelerations: Early (Amira King RN) Pitocin (milliunit): Pitocin Remains (milliunits) @ 2 (Amira Fernando, RN) Datetime: 11/07/2016 11:57 Patient Position/Activity: Left Lateral (Amira Fernando, RN) Datetime: 11/07/2016 11:56 Pitocin (milliunit): Pitocin Started (milliunits) @ 2 (Amira Fernando, RN) Datetime: 11/07/2016 11:51 Communication Comments: Orders received for pitocin augmentation (Amira Fernando, RN) Datetime: 11/07/2016 11:50 Dilatation (cm): 6.0 (Amira King RN) Effacement (%): 80 (Amira King RN) Station: -1 (Amira King RN) Exam by: Maritza Hahn CNM (Amira King RN) Vaginal Bleeding: Normal Show (Amira King RN) Cervix, Consistency: Soft (Amira King RN) Cervix, Position: Anterior (Amira King RN) Communication Comments: Maritza Hahn CNM at bedside (Amira King RN) Datetime: 11/07/2016 11:45 NBP Sys/Ilana/Mean (mmHg): 118 (QS system process) : 73 (QS system process) : 90 (QS system process) Pulse: 100 (QS system process) Respirations: 16 (Amira King RN) Monitor Mode: External; Palpation (Amira King RN) Frequency (min): 2-4 (Amira King RN) Quality: Moderate (Amira King RN) Duration (sec): 50-80 (Amira King RN) Resting Tone (Palpate): Relaxed (Amira Fernando, RN) Monitor Mode: External US (Amira King, RN) FHR Baseline Rate : 135 (Amirarachel King, RN) Variability: Moderate 6-25 bpm (Amira Fernando, RN) Accelerations: 15X15 (Amira Fernando, RN) Decelerations: None (Amira Fernando, RN) LaborFlag: Labor (QS system process) Datetime: 11/07/2016 11:30 NBP Sys/Ilana/Mean (mmHg): 132 (QS system process) : 78 (QS system process) : 100 (QS system process) Pulse: 96 (QS system process) Respirations: 16 (Amira King, GANESH) Monitor Mode: External; Palpation (Amira King RN) Frequency (min): 2-4 (Amira King RN) Quality: Moderate (Amira King RN) Duration (sec): 50-70 (Amira King, RN) Resting Tone (Palpate): Relaxed (Amira King RN) Monitor Mode: External US (Amira King RN) FHR Baseline Rate : 135 (Amira Fernando, RN) Variability: Moderate 6-25 bpm (Amria Fernando, RN) Accelerations: 15X15 (Amira Fernando, RN) Decelerations: None (Amira Fernando, RN) LaborFlag: Labor (QS system process) Datetime: 11/07/2016 11:18 NBP Sys/Ilana/Mean (mmHg): 128 (QS system process) : 79 (QS system process) : 97 (QS system process) Pulse: 96 (QS system process) Respirations: 16 (Amira Fernando, RN) LaborFlag: Labor (QS system process) Datetime: 11/07/2016 11:15 Monitor Mode: External; Palpation (Amira King, RN) Frequency (min): 3-5 (Amira Fernando, RN) Quality: Moderate (Amira Fernando, RN) Duration (sec): 50-70 (Amira Fernando, RN) Resting Tone (Palpate): Relaxed (Amira Fernando, RN) Monitor Mode: External US (Amirarachel King, RN) FHR Baseline Rate : 135 (Amira Fernando, RN) Variability: Moderate 6-25 bpm (Amira Fernando, RN) Accelerations: 10X10 (Amira Fernando, RN) Decelerations: Early (Amira Fernando, RN) Datetime: 11/07/2016 11:03 NBP Sys/Ilana/Mean (mmHg): 123 (QS system process) : 78 (QS system process) : 96 (QS system process) Pulse: 90 (QS system process) Respirations: 18 (Amira Fernando, RN) LaborFlag: Labor (QS system process) Datetime: 11/07/2016 11:00 Monitor Mode: External; Palpation (Amira Fernando, RN) Frequency (min): 3-4 (Amira Fernando, RN) Quality: Moderate (Amira Fernando, RN) Duration (sec): 50-70 (Amira Fernando, RN) Resting Tone (Palpate): Relaxed (Amira Fernando, RN) Monitor Mode: External US (Amira Fernando, RN) FHR Baseline Rate : 135 (Amira Fernando, RN) Variability: Moderate 6-25 bpm (Amira Fernando, RN) Decelerations: Early (Amira Fernando, RN) Datetime: 11/07/2016 10:49 NBP Sys/Ilana/Mean (mmHg): 122 (QS system process) : 75 (QS system process) : 94 (QS system process) Pulse: 82 (QS system process) Respirations: 18 (Amira Fernando, RN) LaborFlag: Labor (QS system process) Datetime: 11/07/2016 10:45 Monitor Mode: External; Palpation (Amira Fernando, RN) Frequency (min): 2-4 (Amira Fernando, RN) Quality: Moderate (Amira Fernando, RN) Duration (sec): 50-70 (Amira Fernando, RN) Resting Tone (Palpate): Relaxed (Amira Fernando, RN) Monitor Mode: External US (Amira Fernando, RN) FHR Baseline Rate : 135 (Amira Fernando, RN) Variability: Moderate 6-25 bpm (Amira Fernando, RN) Accelerations: 15X15 (Amira Fernando, RN) Decelerations: Early (Amira Fernando, RN) Datetime: 11/07/2016 10:43 Notification Reason: Status Update; Status; Labor Status; Uterine Activity; Other (Amira King RN) Communication Comments: Maritza Hahn CNM at desk. Informed about SVE, no new orders received. Will continue to monitor. (Amira King RN) Datetime: 11/07/2016 10:37 Monitor Interventions for UA: [place] Adjusted (Amira King RN) Patient Position/Activity: Right Lateral; Peanut Ball (Amira King RN) Datetime: 11/07/2016 10:35 NBP Sys/Ilana/Mean (mmHg): 114 (QS system process) : 82 (QS system process) : 93 (QS system process) Pulse: 97 (QS system process) Respirations: 18 (Amira King RN) LaborFlag: Labor (QS system process) Datetime: 11/07/2016 10:34 Dilatation (cm): 6.0 (Amira King RN) Effacement (%): 80 (Amira King RN) Station: 0 (Amira King RN) Exam by: José King RNC (Amira King RN) Vaginal Bleeding: Normal Show (Amira King RN) Cervix, Consistency: Moderate (Amira King RN) Cervix, Position: Anterior (Amira King RN) Hygiene: Radha Care; Underpad Changed (Amira King RN) Datetime: 11/07/2016 10:30 Monitor Mode: External; Palpation (Amira King RN) Frequency (min): 3-4 (Amira King RN) Quality: Moderate (Amira King RN) Duration (sec): 50-70 (Amira King RN) Resting Tone (Palpate): Relaxed (Amira King RN) Monitor Mode: External US (Amira King RN) FHR Baseline Rate : 125 (Amira King RN) Variability: Moderate 6-25 bpm (Amira King RN) Accelerations: 10X10 (Amira King RN) Decelerations: None (Amira King RN) Datetime: 11/07/2016 10:18 NBP Sys/Ilana/Mean (mmHg): 111 (QS system process) : 65 (QS system process) : 82 (QS system process) Pulse: 93 (QS system process) Respirations: 16 (Amira King RN) LaborFlag: Labor (QS system process) Datetime: 11/07/2016 10:15 Monitor Mode: External; Palpation (Amira King RN) Frequency (min): 2 (Amira King RN) Quality: Moderate (Amira King RN) Duration (sec): 50-70 (Amira King RN) Resting Tone (Palpate): Relaxed (Amira King, RN) Monitor Mode: External US (Amira King RN) FHR Baseline Rate : 135 (Amira King RN) Variability: Moderate 6-25 bpm (Amira King RN) Accelerations: 10X10 (Amira King RN) Decelerations: None (Amira Fernando, RN) Datetime: 11/07/2016 10:03 NBP Sys/Ilana/Mean (mmHg): 114 (QS system process) : 68 (QS system process) : 86 (QS system process) Pulse: 76 (QS system process) Respirations: 18 (Amira King RN) Temperature (F): 98.3 (Amira King RN) Temperature (C): 36.8 (QS system process) Temperature Route: Oral (Amira King RN) LaborFlag: Labor (QS system process) Datetime: 11/07/2016 10:00 Monitor Mode: External; Palpation (Amira King RN) Frequency (min): 2-4 (Amira King RN) Quality: Moderate (Amira King RN) Duration (sec): 50-70 (Amira King RN) Resting Tone (Palpate): Relaxed (Amira King RN) Monitor Mode: External US (Amira King RN) FHR Baseline Rate : 130 (Amira King RN) Variability: Moderate 6-25 bpm (Amirarachel King, RN) Accelerations: 10X10 (Amira King RN) Decelerations: None (Amira King RN) Datetime: 11/07/2016 09:54 Patient Position/Activity: Left Lateral; Peanut Ball (Amira King, RN) Datetime: 11/07/2016 09:48 NBP Sys/Ilana/Mean (mmHg): 126 (QS system process) : 74 (QS system process) : 95 (QS system process) Pulse: 76 (QS system process) LaborFlag: Labor (QS system process) Datetime: 11/07/2016 09:45 Monitor Mode: External; Palpation (Amira King RN) Frequency (min): 2-3 (Amira Fernando, RN) Quality: Moderate (Amira King, RN) Duration (sec): 50-70 (Amira King RN) Resting Tone (Palpate): Relaxed (Amira King RN) Monitor Mode: External US (Amira King RN) FHR Baseline Rate : 125 (Amira King, RN) Variability: Minimal - Undetectable to <=5 bpm (Amira King RN) Decelerations: Early (Amira King RN) Datetime: 11/07/2016 09:34 NBP Sys/Ilana/Mean (mmHg): 124 (QS system process) : 74 (QS system process) : 94 (QS system process) Pulse: 76 (QS system process) LaborFlag: Labor (QS system process) Datetime: 11/07/2016 09:30 Monitor Mode: External; Palpation (Amira King RN) Frequency (min): 2-3 (Amira King RN) Quality: Moderate (Amira King RN) Duration (sec): 50-70 (Amira King RN) Resting Tone (Palpate): Relaxed (Amira King RN) Monitor Mode: External US (Amira King RN) FHR Baseline Rate : 130 (Amira King RN) Variability: Minimal - Undetectable to <=5 bpm (Amiar King RN) Decelerations: Early; Variable (Amira King RN) Datetime: 11/07/2016 09:19 NBP Sys/Ilana/Mean (mmHg): 125 (QS system process) : 66 (QS system process) : 90 (QS system process) Pulse: 80 (QS system process) Respirations: 18 (Amira King RN) LaborFlag: Labor (QS system process) Datetime: 11/07/2016 09:15 Monitor Mode: External; Palpation (Amira King RN) Frequency (min): 2-3 (Amira King RN) Quality: Moderate (Amira King RN) Duration (sec): 50-70 (Amira King RN) Resting Tone (Palpate): Relaxed (Amira King RN) Monitor Mode: External US (Amira Fernando, RN) FHR Baseline Rate : 130 (Amira Fernando, RN) Variability: Minimal - Undetectable to <=5 bpm (Amira Fernando, RN) Decelerations: Early; Variable (Amira Fernando, RN) Datetime: 11/07/2016 09:14 Patient Position/Activity: Right Lateral; Peanut Ball (Amira Fernando, RN) Datetime: 11/07/2016 09:12 Hygiene: Radha Care; Underpad Changed (Amira Fernando, RN) Datetime: 11/07/2016 09:03 NBP Sys/Ilana/Mean (mmHg): 115 (QS system process) : 66 (QS system process) : 86 (QS system process) Pulse: 89 (QS system process) LaborFlag: Labor (QS system process) Datetime: 11/07/2016 09:00 Monitor Mode: External; Palpation (Amira King, RN) Frequency (min): 2-3 (Amira King, RN) Quality: Moderate (Amira Fernando, RN) Duration (sec): 50-70 (Amira Fernando, RN) Resting Tone (Palpate): Relaxed (Amira Fernando, RN) Monitor Mode: External US (Amira King, RN) FHR Baseline Rate : 130 (Amira Fernando, RN) Variability: Minimal - Undetectable to <=5 bpm (Amira Fernando, RN) Accelerations: 10X10 (Amira Fernando, RN) Decelerations: Early (Amira Fernando, RN) Datetime: 11/07/2016 08:49 NBP Sys/Ilana/Mean (mmHg): 117 (QS system process) : 60 (QS system process) : 83 (QS system process) Pulse: 78 (QS system process) LaborFlag: Labor (QS system process) Datetime: 11/07/2016 08:45 Monitor Mode: External; Palpation (Amirarachel King, RN) Frequency (min): 2-3 (Amirarachel King, RN) Quality: Moderate (Amira Fernando, RN) Duration (sec): 50-70 (Amira Fernando, RN) Resting Tone (Palpate): Relaxed (Amira Fernando, RN) Monitor Mode: External US (Amira Fernando, RN) FHR Baseline Rate : 130 (Amira Fernando, RN) Variability: Moderate 6-25 bpm (Amira Fernando, RN) Accelerations: 15X15 (Amira Fernando, RN) Decelerations: Early (Amira Fernando, RN) Datetime: 11/07/2016 08:33 NBP Sys/Ilana/Mean (mmHg): 121 (QS system process) : 52 (QS system process) : 71 (QS system process) Pulse: 90 (QS system process) Respirations: 18 (Amira Fernando, RN) LaborFlag: Labor (QS system process) Datetime: 11/07/2016 08:32 NBP Sys/Ilana/Mean (mmHg): 127 (QS system process) : 74 (QS system process) : 96 (QS system process) Pulse: 86 (QS system process) LaborFlag: Labor (QS system process) Datetime: 11/07/2016 08:31 NBP Sys/Ilana/Mean (mmHg): 134 (QS system process) : 68 (QS system process) : 92 (QS system process) Pulse: 74 (QS system process) LaborFlag: Labor (QS system process) Datetime: 11/07/2016 08:30 NBP Sys/Ilana/Mean (mmHg): 139 (QS system process) : 70 (QS system process) : 95 (QS system process) Pulse: 88 (QS system process) Respirations: 16 (Amira King RN) Temperature (F): 98.5 (Amira King RN) Temperature (C): 36.9 (QS system process) Temperature Route: Oral (Amira King RN) Monitor Mode: External; Palpation (Amira King RN) Frequency (min): 2-3 (Amira King RN) Quality: Moderate (Amira King RN) Duration (sec): 50-70 (Amira King RN) Resting Tone (Palpate): Relaxed (Amira Kign, RN) Monitor Mode: External US (Aimra King RN) FHR Baseline Rate : 130 (Amira King RN) Variability: Moderate 6-25 bpm (Amirarachel King, RN) Accelerations: 15X15 (Amirarachel King, RN) Decelerations: Early (Amira King, RN) Patient Position/Activity: Left Tilt (Amira King RN) LaborFlag: Labor (QS system process) Datetime: 11/07/2016 08:29 NBP Sys/Ilana/Mean (mmHg): 128 (QS system process) : 69 (QS system process) : 92 (QS system process) Pulse: 75 (QS system process) LaborFlag: Labor (QS system process) Datetime: 11/07/2016 08:28 NBP Sys/Ilana/Mean (mmHg): 127 (QS system process) : 72 (QS system process) : 93 (QS system process) Pulse: 80 (QS system process) LaborFlag: Labor (QS system process) Datetime: 11/07/2016 08:27 NBP Sys/Ilana/Mean (mmHg): 130 (QS system process) : 73 (QS system process) : 95 (QS system process) Pulse: 81 (QS system process) Respirations: 18 (Amira Fernando, RN) LaborFlag: Labor (QS system process) Datetime: 11/07/2016 08:26 NBP Sys/Ilana/Mean (mmHg): 129 (QS system process) : 73 (QS system process) : 94 (QS system process) Pulse: 77 (QS system process) LaborFlag: Labor (QS system process) Datetime: 11/07/2016 08:25 NBP Sys/Ilana/Mean (mmHg): 123 (QS system process) : 76 (QS system process) : 95 (QS system process) Pulse: 77 (QS system process) LaborFlag: Labor (QS system process) Datetime: 11/07/2016 08:24 NBP Sys/Ilana/Mean (mmHg): 133 (QS system process) : 77 (QS system process) : 98 (QS system process) Pulse: 80 (QS system process) Respirations: 16 (Amira King RN) Pain Scale: 0 (Amira King RN) Pain Presence: None/Denies (Amira King RN) Pain Type: N/A (Amira King RN) Pain Goal: 2 (Amira King RN) Pain Assessment Comments: Patient comfortable w/ ctx (Amira King, RN) Dilatation (cm): 3.0 (Amira King RN) Effacement (%): 70 (Amira King, RN) Station: -1 (Amira King RN) Exam by: José King RNC (Amira King, RN) Vaginal Bleeding: None (Amira King RN) Cervix, Consistency: Moderate (Amira King RN) Cervix, Position: Midposition (Amira King RN) I/O Interventions: Rashid Cath Inserted (Amira King RN) Patient Care Comments: 14Fr Rashid cath inserted under sterile technique w/ clear yellow urine returned, secured th left leg set to gravity drainage (Amira King RN) LaborFlag: Labor (QS system process) Datetime: 11/07/2016 08:23 NBP Sys/Ilana/Mean (mmHg): 134 (QS system process) : 77 (QS system process) : 101 (QS system process) Pulse: 72 (QS system process) LaborFlag: Labor (QS system process) Datetime: 11/07/2016 08:22 NBP Sys/Ilana/Mean (mmHg): 131 (QS system process) : 81 (QS system process) : 101 (QS system process) Pulse: 92 (QS system process) LaborFlag: Labor (QS system process) Datetime: 11/07/2016 08:21 NBP Sys/Ilana/Mean (mmHg): 128 (QS system process) : 79 (QS system process) : 98 (QS system process) Pulse: 82 (QS system process) Respirations: 18 (Amira King RN) LaborFlag: Labor (QS system process) Datetime: 11/07/2016 08:20 NBP Sys/Ilana/Mean (mmHg): 123 (QS system process) : 73 (QS system process) : 93 (QS system process) Pulse: 75 (QS system process) LaborFlag: Labor (QS system process) Datetime: 11/07/2016 08:19 NBP Sys/Ilana/Mean (mmHg): 131 (QS system process) : 75 (QS system process) : 98 (QS system process) Pulse: 75 (QS system process) Respirations: 18 (Amira King RN) LaborFlag: Labor (QS system process) Datetime: 11/07/2016 08:18 NBP Sys/Ilana/Mean (mmHg): 130 (QS system process) : 73 (QS system process) : 94 (QS system process) Pulse: 88 (QS system process) LaborFlag: Labor (QS system process) Datetime: 11/07/2016 08:17 NBP Sys/Ilana/Mean (mmHg): 128 (QS system process) : 81 (QS system process) : 99 (QS system process) Pulse: 88 (QS system process) Respirations: 15 (Amira King RN) LaborFlag: Labor (QS system process) Datetime: 11/07/2016 08:16 NBP Sys/Ilana/Mean (mmHg): 131 (QS system process) : 78 (QS system process) : 98 (QS system process) Pulse: 85 (QS system process) LaborFlag: Labor (QS system process) Datetime: 11/07/2016 08:15 NBP Sys/Ilana/Mean (mmHg): 130 (QS system process) : 71 (QS system process) : 95 (QS system process) Pulse: 79 (QS system process) Monitor Mode: External; Palpation (Amira King RN) Frequency (min): 2-5 (Amira King RN) Quality: Moderate (Amira King RN) Duration (sec): 50-70 (Amira King RN) Resting Tone (Palpate): Relaxed (Amira King RN) Monitor Mode: External US (Amirarachel King, RN) FHR Baseline Rate : 140 (Amira Fernando, RN) Variability: Moderate 6-25 bpm (Amira Fernando, RN) Accelerations: 15X15 (Amira Fernando, RN) Decelerations: None (Amira Fernando, RN) LaborFlag: Labor (QS system process) Datetime: 11/07/2016 08:14 NBP Sys/Ilana/Mean (mmHg): 134 (QS system process) : 73 (QS system process) : 99 (QS system process) Pulse: 109 (QS system process) Patient Position/Activity: Right Tilt; Supine (Amira King, RN) LaborFlag: Labor (QS system process) Datetime: 11/07/2016 08:13 NBP Sys/Ilana/Mean (mmHg): 140 (QS system process) : 88 (QS system process) : 108 (QS system process) Pulse: 88 (QS system process) LaborFlag: Labor (QS system process) Datetime: 11/07/2016 08:12 NBP Sys/Ilana/Mean (mmHg): 140 (QS system process) : 90 (QS system process) : 106 (QS system process) Pulse: 86 (QS system process) Respirations: 16 (Amira King RN) LaborFlag: Labor (QS system process) Datetime: 11/07/2016 08:11 NBP Sys/Ilana/Mean (mmHg): 140 (QS system process) : 86 (QS system process) : 108 (QS system process) Pulse: 90 (QS system process) Pulse: 88 (QS system process) SpO2 (%): 100 (QS system process) LaborFlag: Labor (QS system process) Datetime: 11/07/2016 08:10 NBP Sys/Ilana/Mean (mmHg): 157 (QS system process) : 89 (QS system process) : 115 (QS system process) Pulse: 77 (QS system process) Epidural Procedure: Cath Placed (Amira King, RN) LaborFlag: Labor (QS system process) Datetime: 11/07/2016 08:09 Epidural Procedure: Test Dose (Amira King, RN) Datetime: 11/07/2016 08:06 Pulse: 85 (QS system process) SpO2 (%): 100 (QS system process) LaborFlag: Labor (QS system process) Datetime: 11/07/2016 08:01 Pulse: 86 (QS system process) SpO2 (%): 100 (QS system process) LaborFlag: Labor (QS system process) Datetime: 11/07/2016 08:00 Monitor Mode: External; Palpation (Amira Fernando, RN) Frequency (min): 2 (Amira Fernando, RN) Quality: Moderate (Amira Fernando, RN) Duration (sec): 50-70 (Amira Fernando, RN) Resting Tone (Palpate): Relaxed (Amira Fernando, RN) Monitor Mode: External US (Amira Fernando, RN) FHR Baseline Rate : 140 (Amira Fernando, RN) Variability: Moderate 6-25 bpm (Amira Fernando, RN) Accelerations: 15X15 (Amira Fernando, RN) Decelerations: Variable (Amira Fernando, RN) Datetime: 11/07/2016 07:58 Procedure Type: Epidural (Amira Fernando, RN) Procedure Verify: Correct Patient Identity; Correct Side and Site are Marked; Accurate Procedure Consent Form; Agreement on Procedure to be Done; Correct Patient Position; Relevant Images and Results are Properly Labeled and Displayed; Addressed Need to Administer Antibiotics or Fluids for Irrigation; Safety Precautions Based on Patient History or Medication Use (Amira King RN) Anesthesia Plans: Epidural (Amira King RN) Epidural Positioning: Sitting (Amira King RN) Anesthesia Comments: Dr Estrada at Bedside (Amira King RN) Datetime: 11/07/2016 07:56 IV/Blood Work: IV Infusing per Order; New IV Bag Hung; IV Bag Number @ 2 (Amira King RN) Datetime: 11/07/2016 07:48 Procedure Type: Epidural (Amira King RN) Procedure Verify: Correct Patient Identity; Accurate Procedure Consent Form; Agreement on Procedure to be Done; Relevant Images and Results are Properly Labeled and Displayed; Addressed Need to Administer Antibiotics or Fluids for Irrigation; Safety Precautions Based on Patient History or Medication Use (Amira King RN) Anesthesia Plans: Epidural (Amira King RN) Anesthesia Comments: Dr Estrada notified of epidural request (Amira King, GANESH) Datetime: 11/07/2016 07:30 Monitor Mode: External; Palpation (Mitali Will RN) Frequency (min): 2-4 (Mitali Will RN) Quality: Moderate (Mitali Will RN) Duration (sec): 60-90 (Mitali Will RN) Duration Criteria: Less than Two 120 Second Contractions (Mitali Will RN) Pattern: Normal: <= 5 Contractions in 10 Minutes (Mitali Will RN) Resting Tone (Palpate): Relaxed (Mitali Will, RN) Monitor Mode: External US (Mitali Will RN) FHR Baseline Rate : 130 (Mitali Will RN) Variability: Minimal - Undetectable to <=5 bpm (Mitali Will, RN) Accelerations: 15X15 (Mitali Will, RN) Decelerations: Variable (Mitali Will RN) Datetime: 11/07/2016 07:25 Anesthesia Comments: requesting epidural, ivf bolus intitiated (Anum Kossmann, RN) Communication Comments: Report to Antonia Garcia relinquished. (Anum Trinh RN) Datetime: 11/07/2016 07:24 IV/Blood Work: IV Started; IV Bolus Started (Amira King RN) Patient Care Comments: LR IVF bolus for epidural started (Amira King RN) Procedure Type: Epidural (Amira King RN) Procedure Verify: Correct Patient Identity; Accurate Procedure Consent Form; Agreement on Procedure to be Done; Addressed Need to Administer Antibiotics or Fluids for Irrigation; Safety Precautions Based on Patient History or Medication Use (Amira King RN) Anesthesia Plans: Epidural (Amira King RN)
[2016-11-07] MEDS: IBUPROFEN 800 MG TABLET PO SCH (21:59)
[2016-11-08] MEDS: IBUPROFEN 800 MG TABLET PO SCH ×3 (05:55→21:10)
--- NOTE | 2016-11-08 06:24 | L&D General Admission ---
General Admit Datetime Report Generated by CPN: 11/08/2016 06:00 INFORMATION Patient Age: 26 (11/07/2016 06:28:QS system process) EDC: 11/04/2016 00:00 (11/07/2016 06:42:Mae Alan RN) : 2 (11/07/2016 06:42:Anum Trinh RN) Para: 1 (11/07/2016 06:42:Anum Trinh RN) Term: 1 (11/07/2016 06:42:Anum Trinh RN) : 0 (11/07/2016 06:42:Anum Trinh RN) Spontaneous Abortions: 0 (11/07/2016 06:42:Anum Trinh RN) Induced Abortions: 0 (11/07/2016 06:42:Anum Trinh RN) Livin (11/07/2016 06:42:Anum Trinh RN) Baby, Number in Womb: 1 (11/07/2016 06:42:Anum Trinh RN) CARE [facility] Sauc[facility] (11/07/2016 06:42:Anum Trinh RN) Adequate Care: Yes (11/07/2016 06:42:Anum Trinh RN) Prepregnancy Weight (lb): 110 (11/07/2016 06:42:Anum Trinh RN) Prepregnancy Weight (kg): 50.0 (11/07/2016 06:42:QS system process) Height (in): 66 (11/07/2016 17:19:QS system process) ALLERGIES Medication Allergy: No (11/07/2016 06:42:Anum Trinh RN) Medication Allergies: No Known Allergies (11/07/2016) (11/07/2016 06:42:QS system process) Latex Allergy: No Latex Allergies (11/07/2016 06:42:Anum Trinh RN) Food Allergies: denies (11/07/2016 06:42:Anum Trinh RN) Environmental Allergies: denies (11/07/2016 06:42:Anum Trinh RN) COMMUNICATION Primary Language: Bolivian (11/07/2016 06:42:Anum Trinh RN) Medical Tx Preferred Language: Bolivian (11/07/2016 06:42:Anum Trinh RN) Bolivian Communication Ability: Speaks Bolivian; Reads Bolivian (11/07/2016 06:42:Anum Trinh RN) Communication Barrier(s): None (11/07/2016 06:42:Anum Trinh RN) DEMOGRAPHICS Address: [address] [place] [id number] (11/07/2016 06:28:QS system process) Zipcode: [address] (11/07/2016 06:28:QS system process) Home (11/07/2016 06:28:QS system process) SSN: [id number] (11/07/2016 06:28:QS system process) Next of Kin Name: JESSE CISNEROS (11/07/2016 06:28:QS system process) Next of Kin (11/07/2016 06:28:QS system process) Next of Kin Relationship: MO (11/07/2016 06:28:QS system process) Date of : 1990 (11/07/2016 06:28:QS system process) Marital Status: (11/07/2016 06:28:QS system process) Sex: Female (11/07/2016 06:28:QS system process) Race: (11/07/2016 06:28:QS system process) Ethnicity: Non- or (11/07/2016 06:28:QS system process) Taoist: None (11/07/2016 06:28:QS system process) DRUG AND ALCOHOL USE Alcohol: No (11/07/2016 06:42:Anum Trinh RN) Cigarettes: Never Smoker. [id number] (11/07/2016 06:42:Anum Trinh RN) Marijuana: No (11/07/2016 06:42:Anum Trinh RN) Cocaine: No (11/07/2016 06:42:Anum Trinh RN) Other Illicit Drugs: No (11/07/2016 06:42:Anum Trinh RN) VACCINE HISTORY Influenza Vaccine: Yes (11/07/2016 06:42:Anum Trinh RN) Influenza Date: 2015 (11/07/2016 06:42:Anum Trinh RN) Pneumococcal Vaccine: No (11/07/2016 06:42:Anum Trinh RN) Tetanus Vaccine: Uncertain (11/07/2016 06:42:Anum Trinh RN) Tdap Vaccine: Yes (11/07/2016 06:42:Anum Trinh RN) Tdap Date: 2015 (11/07/2016 06:42:Anum Trinh RN) Hepatitis B Vaccine: Uncertain (11/07/2016 06:42:Anum Trinh RN) Rural Mail [employer]: [facility] (11/07/2016 06:42:Anum Trinh RN) Feeding Preference: Formula (11/07/2016 06:42:Anum Trinh RN) Benefit of Breast Feed Discussed: Yes (11/07/2016 06:42:Anum Trinh RN) Circumcision: Yes (11/07/2016 06:42:Anum Trinh RN) Classes Attended: No (11/07/2016 06:42:Anum Trinh RN) Tubal Ligation: No (11/07/2016 06:42:Anum Trinh RN) Tubal Authorization Signed: N/A (11/07/2016 06:42:Anum Trinh RN) Consent: N/A (11/07/2016 06:42:Anum Trinh RN) Consent Signed: N/A (11/07/2016 06:42:Anum Trinh RN) Pain Management Plans: Medications; Epidural (11/07/2016 06:42:Anum Trinh RN) Plans for Labor and Delivery: None (11/07/2016 06:42:Anum Trinh RN) Support Person: Jamil Veloz "Azar" (11/07/2016 06:42:Anum Trinh RN) Support Person Relationship: (11/07/2016 06:42:Anum Trinh RN) Cultural/Spritual Practice: Miranda (11/07/2016 06:42:Anum Trinh RN) Spir/Cult Dietary Needs: No (11/07/2016 06:42:Anum Trinh RN) LIVING SITUATION/DISCHARGE PLAN Living Arrangements: House (11/07/2016 06:42:Anum Trinh RN) Adequate Access to:: Electric; Heat; Refrigeration; Plumbing/Running water; Phone; Transportation (11/07/2016 06:42:Anum Trinh RN) WIC Program: [place] (11/07/2016 06:42:Anum Trinh RN) Discharge Vegetable Preparer Person: Azar (11/07/2016 06:42:Anum Trinh RN) Person to Help after Discharge: Azar (11/07/2016 06:42:Anum Trinh RN) Currently Using Commun Resources: Miranda (11/07/2016 06:42:Anum Trinh RN) Outside Agency/Field Captain: No (11/07/2016 06:42:Anum Trinh RN) Car Seat for Discharge: Yes (11/07/2016 06:42:Anum Trinh RN) Adoption Requested: No (11/07/2016 06:42:Anum Trinh RN) Pt Contact w/infant Post : N/A (11/07/2016 06:42:Anum Trinh RN) LABS Blood Type: B Positive (Annotations: Data stored by N on behalf of user) (11/07/2016 06:42:Mae Alan RN) Hemoglobin: 11.4 L (11/07/2016 07:33:QS system process) Hematocrit: 33.3 L (11/07/2016 07:33:QS system process) MCV: 87 (11/07/2016 07:33:QS system process) Group Beta Strep: negative (11/07/2016 06:42:Mae Alan RN) Gonorrhea: Negative (11/07/2016 06:42:Mae Alan RN) Chlamydia: Negative (11/07/2016 06:42:Mae Alan RN) RPR/VDRL: Nonreactive (11/07/2016 06:42:Mae Alan RN) Hepatitis B: Negative (11/07/2016 06:42:Mae Alan RN) Rubella: Immune (11/07/2016 06:42:Mae Alan RN) OB/PREVIOUS HISTORY Previous Procedures: Ultrasound; NST (11/07/2016 06:42:Anum Trinh RN) Current Procedures: Ultrasound; NST (11/07/2016 06:42:Anum Trinh RN) History of Previous : No (11/07/2016 06:42:Anum Trinh RN) History of Gestational Diabetes: No (11/07/2016 06:42:Anum Trinh RN) History of PIH: Yes (11/07/2016 06:42:Anum Trinh RN) History of Incompetent Cervix: No (11/07/2016 06:42:Anum Trinh RN) History of Placenta Previa/Abrup: No (11/07/2016 06:42:Anum Trinh RN) History of Macrosomia: No (11/07/2016 06:42:Anum Trinh RN) History of IUGR: No (11/07/2016 06:42:Anum Trinh RN) History of Hemorrhage: No (11/07/2016 06:42:Anum Trinh RN) History of Loss/Stillborn: No (11/07/2016 06:42:Anum Trinh RN) History of : No (11/07/2016 06:42:Anum Trinh RN) History of D (Rh) Sensitization: No (11/07/2016 06:42:Anum Trinh RN) History Recurrent Loss/Stillborn: No (11/07/2016 06:42:Anum Trinh RN) History Depression/PP Depression: No (11/07/2016 06:42:Anum Trinh RN) History of Uterine Anomaly/QUINTON: No (11/07/2016 06:42:Anum Trinh RN) History of Infertility: No (11/07/2016 06:42:Anum Trinh RN) History of ART Treatment: No (11/07/2016 06:42:Anum Trinh RN) History of QUINTON: No (11/07/2016 06:42:Anum Trinh RN) Comments Obstetrical History: g1-2014, , 40 week induction, elevated blood pressure, no complications g2-current , no complications (11/07/2016 06:42:Anum Trinh RN) MEDICAL HISTORY Med Hx Diabetes: No (11/07/2016 06:42:Anum Trinh RN) Med Hx Hypertension: No (11/07/2016 06:42:Anum Trinh RN) Med Hx Heart Disease: No (11/07/2016 06:42:Anum Trinh RN) Med Hx Autoimmune Disorder: No (11/07/2016 06:42:Anum Trinh RN) Med Hx Kidney Disease/UTI: No (11/07/2016 06:42:Anum Trinh RN) Med Hx Neurologic/Epilepsy: No (11/07/2016 06:42:Anum Trinh RN) Med Hx Psychiatric Disorders: No (11/07/2016 06:42:Anum Trinh RN) Med Hx Hepatitis/Liver Disease: No (11/07/2016 06:42:Anum Trinh RN) Med Hx Varicosities/Phlebitis: No (11/07/2016 06:42:Anum Trinh RN) Med Hx Thyroid Dysfunction: No (11/07/2016 06:42:Anum Trinh RN) Med Hx Trauma/Violence: No (11/07/2016 06:42:Anum Trinh RN) Med Hx Blood Transfusion: No (11/07/2016 06:42:Anum Trinh RN) Med Hx Pulmonary (Asthma,TB): No (11/07/2016 06:42:Anum Trinh RN) Med Hx Breast: No (11/07/2016 06:42:Anum Trinh RN) Med Hx HAIR CLIPPER POWER Surgery: No (11/07/2016 06:42:Anum Trinh RN) Med Hx Hospitalization/Surgery: Yes (11/07/2016 06:42:Anum Trinh RN) Med Hx Anesthetic Complications: No (11/07/2016 06:42:Anum Trinh RN) Med Hx Abnormal Pap Smear: No (11/07/2016 06:42:Anum Trinh RN) Other Medical Diseases: No (11/07/2016 06:42:Anum Trinh RN) Med Hx Significant Family Hx: No (11/07/2016 06:42:Anum Trinh RN) Details of Med/Surg Hx: x 1 (11/07/2016 06:42:Anum Trinh RN) INFECTIOUS HISTORY Inf Hx Gonorrhea: No (11/07/2016 06:42:Anum Trinh RN) Inf Hx Chlamydia: No (11/07/2016 06:42:Anum Trinh RN) Inf Hx Syphilis: No (11/07/2016 06:42:Anum Trinh RN) Inf Hx HIV/AIDS: No (11/07/2016 06:42:Anum Trinh RN) Inf Hx Human Papilloma Virus: No (11/07/2016 06:42:Anum Trinh RN) Inf Hx Pt/Partner Genital Herpes: No (11/07/2016 06:42:Anum Trinh RN) Inf Hx Tuberculosis/Exposure: No (11/07/2016 06:42:Anum Trinh RN) Inf Hx Hepatitis B,C: No (11/07/2016 06:42:Anum Trinh RN) Inf Hx Rash or Viral Illness: No (11/07/2016 06:42:Anum Trinh RN) GENETIC HISTORY Gen Hx Age >=35 at JOSLYN: No (11/07/2016 06:42:Anum Trinh RN) Gen Hx Thalassemia: No (11/07/2016 06:42:Anum Trinh RN) Gen Hx Congenital Heart Defect: No (11/07/2016 06:42:Anum Trinh RN) Gen Hx Neural Tube Defect: No (11/07/2016 06:42:Anum Trinh RN) Gen Hx Down's Syndrome: No (11/07/2016 06:42:Anum Trinh RN) Gen Hx Joselito-Sachs: No (11/07/2016 06:42:Anum Trinh RN) Gen Hx Deja: No (11/07/2016 06:42:Anum Trinh RN) Gen Hx Familial Dysautonomia: No (11/07/2016 06:42:Anum Trinh RN) Gen Hx Sickle Cell Disease/Trait: No (11/07/2016 06:42:Anum Trinh RN) Gen Hx Hemophilia/Blood Disorder: No (11/07/2016 06:42:Anum Trinh RN) Gen Hx Muscular Dystrophy: No (11/07/2016 06:42:Anum Trinh RN) Gen Hx Cystic Fibrosis: No (11/07/2016 06:42:Anum Trinh RN) Gen Hx Huntingtons Chorea: No (11/07/2016 06:42:Anum Trinh RN) Gen Hx Mental Retardation/Autism: Yes (11/07/2016 06:42:Anum Trinh RN) Gen Hx Tested for Fragile X: No (11/07/2016 06:42:Anum Trinh RN) Gen Hx Other Inher/Chromosomal: No (11/07/2016 06:42:Anum Trinh RN) Gen Hx Maternal Metabolic DO: No (11/07/2016 06:42:Anum Trinh RN) Gen Hx Pt Father or FOB Defect: No (11/07/2016 06:42:Anum Trinh RN) Gen Hx Other Genetic History: Yes (11/07/2016 06:42:Anum Trinh RN) Gen Hx Drugs/Meds since LMP: No (11/07/2016 06:42:Anum Trinh RN) Gen Hx Medications: vitamins, tums (11/07/2016 06:42:Anum Trinh RN) Details of Genetic History: bone disorder with sister (11/07/2016 06:42:Anum Trinh RN)
--- NOTE | 2016-11-08 06:25 | L&D Care Plan ---
LD CARE PLANS Datetime Report Generated by CPN: 11/08/2016 06:16 Datetime: 11/07/2016 07:21 Pain State: Risk For (Carrie Abreu RN) Related To: Labor and Delivery Process; Surgical Procedure; Complication(s) of ; Disease Process; Treatment and Procedures; Post (Carrie Abreu RN) Goal(s): Patients Pain will be Assessed and Managed; Patient will Verbalize Adequate Relief of Pain or the Ability to [place] with Current Pain (Carrie Abreu RN) Interventions: Assess Pain Severity on Scale of 0 (None) to 5 (Severe); Assess Type, Location and Intensity of Pain Each Time Client Reports Discomfort and Notify Provider if Unusal Pain Develops; Encourage Proper Breathing and Relaxation Techniques; Offer Alternatives Such as Repositioning, Calm Environment, Massages, Diversional Activities, Ice Pack, Splinting, and Ambulation; Administer Analgesics as Ordered; Assist with Epidural Placement as Appropriate; Evaluate Therapeutic Effectiveness of Medication and Treatments (Carrie Abreu RN) Outcome: Patient will Report Absence or Relief of Pain Consistent with Established Pain Goal (Carrie Abreu RN) Status: Ongoing (Carrie Abreu RN) Outcome: Patient will have a Decrease in Signs and Symptoms of Discomfort (Carrie Abreu RN) Status: Ongoing (Carrie Abreu RN) Outcome: Pain will be Controlled During Procedures (Carrie Abreu RN) Status: Ongoing (Carrie Abreu RN) Anxiety State: Risk For (Carrie Abreu RN) Related To: Labor and Delivery Process; Surgical Procedure; Perceived or Actual Threat to ; Fear of Unknown; Situational Crisis; Medical Interventions; Significant Life Event (Carrie Abreu RN) Goal(s): Patient will have Decreased Anxiety and be able to Function at Acceptable Levels (Carrie Abreu RN) Interventions: Assess Verbal and Nonverbal Behavioral Indicators of Anxiety; Assist Patient to Identify and Verbalize Symptoms of Anxiety; Identify and Demonstrate Techniques to Control Anxiety; Assist Patient with Coping Mechanisms to Manage Anxiety; Provide Theraputic Touch for the Patient; Explain to Patient, Using a Calm Reassuring Approach and Nonmedical Terms, All Activities, Procedures, and Concerns; Instruct Patient and Family about Post Discharge Care, Limitations, Symptoms to Report and Resources Available (Carrie Abreu RN) Outcome: Patient will Identify, Verbalize and Demonstrate Techniques to Control Anxiety (Carrie Abreu RN) Status: Ongoing (Carrie Abreu RN) Outcome: Patient's Posture, Facial Expressions, Gestures and Activity Level will Reflect Decreased Anxiety (Carrie Abreu RN) Status: Ongoing (Carrie Abreu RN) Outcome: Patient will Verbalize a Sense of Control and/or Acceptance of the Situation (Carrie Abreu RN) Status: Ongoing (Carrie Abreu RN) Outcome: Patient will Identify and Utilize Support Person (Carrie Abreu RN) Status: Ongoing (Carrie Abreu RN) Knowledge Deficit State: Risk For (Carrie Abreu RN) Related To: Labor and Delivery Process; Surgical Procedures; Treatment and Procedures; Impending Alterations in Family Dynamics; Feeding and Care; Community Resources and Available Support Mechanisms (Carrie Abreu RN) Goal(s): Patient will Accurately Verbalize Understanding of Plan of Care and Treatment; Patient and Family will Accurately Verbalize Understanding of the Disease Process (Carrie Abreu RN) Interventions: Assess Motivation and Willingness of Patient/Family to Learn; Assess Preferred Learning Mode: One to One Instruction, Reading, Videos, Group Discussion or Demonstration; Assess Barriers to Learning: Pain, Emotional State, Language Barrier, Cognitive Impairment, Visual or Hearing Deficits; Assess Patient and Family Knowledge of Disease Process, Medications and Treatment; Discuss Therapy and/or Treatment Options, Describe Rationale Behind Management, Therapy and Treatment Recommendations; Instruct Patient and Family on Signs and Symptoms to Report; Instruct Patient and Family on Medication Effects and Side Effects; Provide Appropriate and Timely Education Using Multiple Techniques; Provide Patient and Family with Support Group Information and Resources; Give Clear and Thorough Explanations and Demonstrations (Carrie Abreu RN) Outcome: Patient and Family will Verbalize Understanding of Condition, Treatment and Signs and Symptoms to Report (Carrie Abreu RN) Status: Ongoing (Carrie Abreu RN) Outcome: Patient will Identify Perceived Learning Needs and Express Motivation to Learn (Carrie Abreu RN) Status: Ongoing (Carrie Abreu RN) Outcome: Patient will Verbalize Understanding of Desired Content, and/or Performs Desired Skill Prior to Discharge (Carrie Abreu RN) Status: Ongoing (Carrie Abreu RN) Infection State: Risk For (Carrie Abreu RN) Related To: Surgical Procedures; Prolonged Labor or Induction; Premature/Prolonged Rupture of Membranes; Invasive Procedures; Altered Tissue Integrity (Carrie Abreu RN) Goal(s): The Patient will be Free of Infection, Vital Signs Stable and Lab Work within Normal Parameters (Carrie Abreu RN) Interventions: Instruct and Reinforce Proper Handwashing, Hygiene, and Care Techniques to Patient and Family; Monitor Vital Signs; Monitor Patient for the Following Signs of Infection: Fever, Abdominal Tenderness, Unusual Discharge; Monitor Aminiotic Fluid, Urine and Lochia for Color and Odor; Observe Wounds, Incisions and Invasive Line Sites for Redness, Drainage and Edema; Assess IV Sites per Hospital Policy; Monitor Lab and Test Results and Notify Provider of Abnormal Findings; Assess Nutritional Status and Promote Good Nutrition (Carrie Abreu RN) Outcome: Patient will Remain Free of Infection (Carrie Abreu RN) Status: Ongoing (Carrie Abreu RN) Outcome: Infection will be Recognized Early to Allow for Prompt Treatment (Carrie Abreu RN) Status: Ongoing (Carrie Abreu RN) Outcome: Patient will have Vital Signs Within Expected Range (Carrie Abreu RN) Status: Ongoing (Carrie Abreu RN) Fluid Volume State: Risk For (Carrie Abreu RN) Related To: Gestational Hypertension; Surgical Procedures; Prolonged Labor or Induction; Hemorrhage; Disease Process; Anesthesia; Altered Renal Function (Carrie Abreu RN) Goal(s): Patient will Achieve and Maintain a Balanced Fluid Volume Status; Hemodynamically Stable (Carrie Abreu RN) Interventions: Monitor Vital Signs; Auscultate Breath Sounds; Monitor Patient for Skin Turgor, Mucous Membranes, Dry Skin, Weakness, Headaches and Confusion; Provide Oral Fluids as Ordered; Initiate and Maintain Intravenous Fluids as Ordered; Monitor Intake and Output as Indicated Per Patient Status; Accurately Measure Blood Loss; Monitor Lab and Test Results as Obtained and Notify Provider of Abnormal Findings; Monitor Patient's Weight (Carrie Abreu RN) Outcome: Patient will have Clear Lung Sounds (Carrie Abreu RN) Status: Ongoing (Carrie Abreu RN) Outcome: Patient will have Vital Signs within Expected Range (Carrie Abreu RN) Status: Ongoing (Carrie Abreu RN) Outcome: Urine Output will be within Expected Range (Carrie Abreu RN) Status: Ongoing (Carrie Abreu RN) Outcome: Patient will have Minimal Generalized or Upper Extremity Edema (Carrie Abreu RN) Status: Ongoing (Carrie Abreu RN) Datetime: 11/07/2016 07:19 Pain State: Risk For (Carrie Abreu RN) Related To: Labor and Delivery Process; Surgical Procedure; Complication(s) of ; Disease Process; Treatment and Procedures; Post (Carrie Abreu RN) Goal(s): Patients Pain will be Assessed and Managed; Patient will Verbalize Adequate Relief of Pain or the Ability to [place] with Current Pain (Carrie Abreu RN) Interventions: Assess Pain Severity on Scale of 0 (None) to 5 (Severe); Assess Type, Location and Intensity of Pain Each Time Client Reports Discomfort and Notify Provider if Unusal Pain Develops; Encourage Proper Breathing and Relaxation Techniques; Offer Alternatives Such as Repositioning, Calm Environment, Massages, Diversional Activities, Ice Pack, Splinting, and Ambulation; Administer Analgesics as Ordered; Assist with Epidural Placement as Appropriate; Evaluate Therapeutic Effectiveness of Medication and Treatments (Carrie Abreu RN) Outcome: Patient will Report Absence or Relief of Pain Consistent with Established Pain Goal (Carrie Abreu RN) Status: Ongoing (Carrie Abreu RN) Outcome: Patient will have a Decrease in Signs and Symptoms of Discomfort (Carrie Abreu RN) Status: Ongoing (Carrie Abreu RN) Outcome: Pain will be Controlled During Procedures (Carrie Abreu RN) Status: Ongoing (Carrie Abreu, GANESH) Anxiety State: Risk For (Carrie Abreu RN) Related To: Labor and Delivery Process; Surgical Procedure; Perceived or Actual Threat to ; Fear of Unknown; Situational Crisis; Medical Interventions; Significant Life Event (Carrie Abreu RN) Goal(s): Patient will have Decreased Anxiety and be able to Function at Acceptable Levels (Carrie Abreu RN) Interventions: Assess Verbal and Nonverbal Behavioral Indicators of Anxiety; Assist Patient to Identify and Verbalize Symptoms of Anxiety; Identify and Demonstrate Techniques to Control Anxiety; Assist Patient with Coping Mechanisms to Manage Anxiety; Provide Theraputic Touch for the Patient; Explain to Patient, Using a Calm Reassuring Approach and Nonmedical Terms, All Activities, Procedures, and Concerns; Instruct Patient and Family about Post Discharge Care, Limitations, Symptoms to Report and Resources Available (Carrie Abreu RN) Outcome: Patient will Identify, Verbalize and Demonstrate Techniques to Control Anxiety (Carrie Abreu RN) Status: Ongoing (Carrie Abreu RN) Outcome: Patient's Posture, Facial Expressions, Gestures and Activity Level will Reflect Decreased Anxiety (Carrie Abreu RN) Status: Ongoing (Carrie Abreu RN) Outcome: Patient will Verbalize a Sense of Control and/or Acceptance of the Situation (Carrie Abreu RN) Status: Ongoing (Carrie Abreu RN) Outcome: Patient will Identify and Utilize Support Person (Carrie Abreu RN) Status: Ongoing (Carrie Abreu RN) Knowledge Deficit State: Risk For (Carrie Abreu RN) Related To: Labor and Delivery Process; Surgical Procedures; Treatment and Procedures; Impending Alterations in Family Dynamics; Feeding and Care; Community Resources and Available Support Mechanisms (Carrie Abreu RN) Goal(s): Patient will Accurately Verbalize Understanding of Plan of Care and Treatment; Patient and Family will Accurately Verbalize Understanding of the Disease Process (Carrie Abreu RN) Interventions: Assess Motivation and Willingness of Patient/Family to Learn; Assess Preferred Learning Mode: One to One Instruction, Reading, Videos, Group Discussion or Demonstration; Assess Barriers to Learning: Pain, Emotional State, Language Barrier, Cognitive Impairment, Visual or Hearing Deficits; Assess Patient and Family Knowledge of Disease Process, Medications and Treatment; Discuss Therapy and/or Treatment Options, Describe Rationale Behind Management, Therapy and Treatment Recommendations; Instruct Patient and Family on Signs and Symptoms to Report; Instruct Patient and Family on Medication Effects and Side Effects; Provide Appropriate and Timely Education Using Multiple Techniques; Provide Patient and Family with Support Group Information and Resources; Give Clear and Thorough Explanations and Demonstrations (Carrie Abreu RN) Outcome: Patient and Family will Verbalize Understanding of Condition, Treatment and Signs and Symptoms to Report (Carrie Abreu RN) Status: Ongoing (Carrie Abreu RN) Outcome: Patient will Identify Perceived Learning Needs and Express Motivation to Learn (Carrie Abreu RN) Status: Ongoing (Carrie Abreu RN) Outcome: Patient will Verbalize Understanding of Desired Content, and/or Performs Desired Skill Prior to Discharge (Carrie Abreu RN) Status: Ongoing (Carrie Abreu RN) Infection State: Risk For (Carrie Abreu RN) Related To: Surgical Procedures; Prolonged Labor or Induction; Premature/Prolonged Rupture of Membranes; Invasive Procedures; Altered Tissue Integrity (Carrie Abreu RN) Goal(s): The Patient will be Free of Infection, Vital Signs Stable and Lab Work within Normal Parameters (Carrie Abreu RN) Interventions: Instruct and Reinforce Proper Handwashing, Hygiene, and Care Techniques to Patient and Family; Monitor Vital Signs; Monitor Patient for the Following Signs of Infection: Fever, Abdominal Tenderness, Unusual Discharge; Monitor Aminiotic Fluid, Urine and Lochia for Color and Odor; Observe Wounds, Incisions and Invasive Line Sites for Redness, Drainage and Edema; Assess IV Sites per Hospital Policy; Monitor Lab and Test Results and Notify Provider of Abnormal Findings; Assess Nutritional Status and Promote Good Nutrition (Carrie Abreu RN) Outcome: Patient will Remain Free of Infection (Carrie Abreu RN) Status: Ongoing (Carrie Abreu RN) Outcome: Infection will be Recognized Early to Allow for Prompt Treatment (Carrie Abreu RN) Status: Ongoing (Carrie Abreu RN) Outcome: Patient will have Vital Signs Within Expected Range (Carrie Abreu RN) Status: Ongoing (Carrie Abreu RN) Fluid Volume State: Risk For (Carrie Abreu RN) Related To: Gestational Hypertension; Surgical Procedures; Prolonged Labor or Induction; Hemorrhage; Disease Process; Anesthesia; Altered Renal Function (Carrie Abreu RN) Goal(s): Patient will Achieve and Maintain a Balanced Fluid Volume Status; Hemodynamically Stable (Carrie Abreu RN) Interventions: Monitor Vital Signs; Auscultate Breath Sounds; Monitor Patient for Skin Turgor, Mucous Membranes, Dry Skin, Weakness, Headaches and Confusion; Provide Oral Fluids as Ordered; Initiate and Maintain Intravenous Fluids as Ordered; Monitor Intake and Output as Indicated Per Patient Status; Accurately Measure Blood Loss; Monitor Lab and Test Results as Obtained and Notify Provider of Abnormal Findings; Monitor Patient's Weight (Carrie Abreu RN) Outcome: Patient will have Clear Lung Sounds (Carrie Abreu RN) Status: Ongoing (Carrie Abreu RN) Outcome: Patient will have Vital Signs within Expected Range (Carrie Abreu, GANESH) Status: Ongoing (Carrie Abreu RN) Outcome: Urine Output will be within Expected Range (Carrie Abreu, GANESH) Status: Ongoing (Carrie Abreu RN) Outcome: Patient will have Minimal Generalized or Upper Extremity Edema (Carrie Abreu RN) Status: Ongoing (Carrie Abreu RN)
[2016-11-08 07:08] LABS: HEMATOCRIT 29.6 % (36.0-47.0); HEMOGLOBIN 9.7 g/dL (12.0-15.5); HGB HCT DIFFERENCE -0.5; MEAN CORPUSCULAR HGB CONC 32.8 g/dL (32.0-36.0); MEAN CORPUSCULAR VOLUME 89 fl (80-97); RED BLOOD COUNT 3.34 10^6/uL (3.72-5.28); WHITE BLOOD COUNT 16.6 10^3/uL (4.0-10.5)
[2016-11-08] MEDS: SENNOSIDES/DOCUSATE 8.6-50 MG 1 EACH TABLET PO SCH (09:24)
[2016-11-08] MEDS: FERROUS SULFATE 325 MG TABLET PO SCH ×2 (09:24→17:27)
[2016-11-08] MEDS: PRENATAL VITAMIN W-O CA NO5/FE FUMARATE/FA CAPSULE PO SCH (09:25)
[2016-11-08] MEDS: DOCUSATE SODIUM 100 MG CAPSULE PO SCH ×2 (09:25→17:27)
--- NOTE | 2016-11-08 09:37 | PDOC PROGRESS REPORT ---
Subjective-OB Subjective: Post Delivery Day: 1 26 year old. Denies any needs at this time, states pain is well controlled, voiding without difficulty, lochia is stable. Physical Exam (OB) Vital Signs: Temp Pulse Resp BP Pulse Ox 98.1 F 73 18 112/67 100 11/08/16 07:23 11/08/16 07:23 11/08/16 07:23 11/08/16 07:23 11/08/16 07:23 Intake & Output 11/07/16 11/08/16 11/09/16 06:59 06:59 06:59 Weight 72.25 kg - Lochia Lochia Amount: Scant < 10 ml Lochia Color: Rubra/Red - Abdomen Description: Tender, Soft Hernia Present: No Fundal Description: Firm, Midline Fundal Height: u/u - u/2 Objective-Diagnostic Laboratory: 11/08/16 06:54 11/08/16 06:54 WBC 16.6 H RBC 3.34 L Hgb 9.7 L Hct 29.6 L MCV 89 MCH 29.0 MCHC 32.8 RDW 13.0 Plt Count 154 Assessment and Plan(PN) - Assessment and Plan (1) Vacuum extraction, delivered, current hospitalization Is this a current diagnosis for this admission?: YesPlan: routine pp care d/c home tomorrow (2) Acute blood loss anemia Is this a current diagnosis for this admission?: YesPlan: ferrous sulfate increase dietary iron - Time Spent with Patient Time with patient: Less than 15 minutes Critical Time spent with patient: Less than 15 minutes Medications reviewed and adjusted accordingly: Yes - Disposition Anticipated Discharge: Home Within: within 24 hours
[2016-11-09] MEDS: IBUPROFEN 800 MG TABLET PO SCH (05:27)
--- NOTE | 2016-11-09 06:23 | L&D General Admission ---
General Admit Datetime Report Generated by CPN: 11/09/2016 06:00 INFORMATION Patient Age: 26 (11/07/2016 06:28:QS system process) EDC: 11/04/2016 00:00 (11/07/2016 06:42:Mae Alan RN) : 2 (11/07/2016 06:42:Anum Trinh RN) Para: 1 (11/07/2016 06:42:Anum Trinh RN) Term: 1 (11/07/2016 06:42:Anum Trinh RN) : 0 (11/07/2016 06:42:Anum Trinh RN) Spontaneous Abortions: 0 (11/07/2016 06:42:Anum Trinh RN) Induced Abortions: 0 (11/07/2016 06:42:Anum Trinh RN) Livin (11/07/2016 06:42:Anum Trinh RN) Baby, Number in Womb: 1 (11/07/2016 06:42:Anum Trinh RN) CARE Primary Plastic Surgery [facility] (11/07/2016 06:42:Anum Trinh RN) Adequate Care: Yes (11/07/2016 06:42:Anum Trinh RN) Prepregnancy Weight (lb): 110 (11/07/2016 06:42:Anum Trinh RN) Prepregnancy Weight (kg): 50.0 (11/07/2016 06:42:QS system process) Height (in): 66 (11/07/2016 17:19:QS system process) ALLERGIES Medication Allergy: No (11/07/2016 06:42:Anum Trinh RN) Medication Allergies: No Known Allergies (11/07/2016) (11/07/2016 06:42:QS system process) Latex Allergy: No Latex Allergies (11/07/2016 06:42:Anum Trinh RN) Food Allergies: denies (11/07/2016 06:42:Anum Trnih RN) Environmental Allergies: denies (11/07/2016 06:42:Anum Trinh RN) COMMUNICATION Primary Language: [place] Rican (11/07/2016 06:42:Anum Trinh RN) Medical Tx Preferred Language: [place]ican (11/07/2016 06:42:Anum Trinh RN) [place]ican Communication Ability: Speaks [place]; Reads [place]ican (11/07/2016 06:42:Anum Trinh RN) Communication Barrier(s): None (11/07/2016 06:42:Anum Trinh RN) DEMOGRAPHICS Address: [address] [place] [id number] (11/07/2016 06:28:QS system process) Zipcode: [address] (11/07/2016 06:28:QS system process) Home (11/07/2016 06:28:QS system process) SSN: [id number] (11/07/2016 06:28:QS system process) Next of Kin Name: JESSE CISNEROS (11/07/2016 06:28:QS system process) Next of Kin (11/07/2016 06:28:QS system process) Next of Kin Relationship: [place] (11/07/2016 06:28:QS system process) Date of : 1990 (11/07/2016 06:28:QS system process) Marital Status: (11/07/2016 06:28:QS system process) Sex: Female (11/07/2016 06:28:QS system process) Race: (11/07/2016 06:28:QS system process) Ethnicity: Non- or (11/07/2016 06:28:QS system process) Tenriism: None (11/07/2016 06:28:QS system process) DRUG AND ALCOHOL USE Alcohol: No (11/07/2016 06:42:Anum Trinh RN) Cigarettes: Never Smoker. [id number] (11/07/2016 06:42:Anum Trinh RN) Marijuana: No (11/07/2016 06:42:Anum Trinh RN) Cocaine: No (11/07/2016 06:42:Anum Trinh RN) Other Illicit Drugs: No (11/07/2016 06:42:Anum Trinh RN) VACCINE HISTORY Influenza Vaccine: Yes (11/07/2016 06:42:Anum Trinh RN) Influenza Date: 2015 (11/07/2016 06:42:Anum Trinh RN) Pneumococcal Vaccine: No (11/07/2016 06:42:Anum Trinh RN) Tetanus Vaccine: Uncertain (11/07/2016 06:42:Anum Trinh RN) Tdap Vaccine: Yes (11/07/2016 06:42:Anum Trinh RN) Tdap Date: 2015 (11/07/2016 06:42:Anum Trinh RN) Hepatitis B Vaccine: Uncertain (11/07/2016 06:42:Anum Trinh RN) Stained Glass Joiner: [facility] (11/07/2016 06:42:Anum Trinh RN) Feeding Preference: Formula (11/07/2016 06:42:Anum Trinh RN) Benefit of Breast Feed Discussed: Yes (11/07/2016 06:42:Anum Trinh RN) Circumcision: Yes (11/07/2016 06:42:Anum Trinh RN) Classes Attended: No (11/07/2016 06:42:Anum Trinh RN) Tubal Ligation: No (11/07/2016 06:42:Anum Trinh RN) Tubal Authorization Signed: N/A (11/07/2016 06:42:Anum Trinh RN) Consent: N/A (11/07/2016 06:42:Anum Trinh RN) Consent Signed: N/A (11/07/2016 06:42:Anum Trinh RN) Pain Management Plans: Medications; Epidural (11/07/2016 06:42:Anum Trinh RN) Plans for Labor and Delivery: None (11/07/2016 06:42:Anum Trinh RN) Support Person: Jamil Veloz "Azar" (11/07/2016 06:42:Anum Trinh RN) Support Person Relationship: (11/07/2016 06:42:Anum Trinh RN) Cultural/Spritual Practice: Miranda (11/07/2016 06:42:Anum Trinh RN) Spir/Cult Dietary Needs: No (11/07/2016 06:42:Anum Trinh RN) LIVING SITUATION/DISCHARGE PLAN Living Arrangements: House (11/07/2016 06:42:Anum Trinh RN) Adequate Access to:: Electric; Heat; Refrigeration; Plumbing/Running water; Phone; Transportation (11/07/2016 06:42:Anum Trinh RN) WIC Program: [facility] (11/07/2016 06:42:Anum Trinh RN) Discharge Computer Video Game Designer Person: Azar (11/07/2016 06:42:Anum Trinh RN) Person to Help after Discharge: Azar (11/07/2016 06:42:Anum Trinh RN) Currently Using Commun Resources: Miranda (11/07/2016 06:42:Anum Trinh RN) Outside Agency/Placement Secretary: No (11/07/2016 06:42:Anum Trinh RN) Car Seat for Discharge: Yes (11/07/2016 06:42:Anum Trinh RN) Adoption Requested: No (11/07/2016 06:42:Anum Trinh RN) Pt Contact w/infant Post : N/A (11/07/2016 06:42:Anum Trinh RN) LABS Blood Type: B Positive (Annotations: Data stored by N on behalf of user) (11/07/2016 06:42:Mae Alan RN) Hemoglobin: 9.7 L (11/08/2016 06:54:QS system process) Hematocrit: 29.6 L (11/08/2016 06:54:QS system process) MCV: 89 (11/08/2016 06:54:QS system process) Group Beta Strep: negative (11/07/2016 06:42:Mae Alan RN) Gonorrhea: Negative (11/07/2016 06:42:Mae Alan RN) Chlamydia: Negative (11/07/2016 06:42:Mae Alan RN) RPR/VDRL: Nonreactive (11/07/2016 06:42:Mae Alan RN) Hepatitis B: Negative (11/07/2016 06:42:Mae Alan RN) Rubella: Immune (11/07/2016 06:42:Mae Alan RN) OB/PREVIOUS HISTORY Previous Procedures: Ultrasound; NST (11/07/2016 06:42:Anum Trinh RN) Current Procedures: Ultrasound; NST (11/07/2016 06:42:Anum Trinh RN) History of Previous : No (11/07/2016 06:42:Anum Trinh RN) History of Gestational Diabetes: No (11/07/2016 06:42:Anum Trinh RN) History of PIH: Yes (11/07/2016 06:42:Anum Trinh RN) History of Incompetent Cervix: No (11/07/2016 06:42:Anum Trinh RN) History of Placenta Previa/Abrup: No (11/07/2016 06:42:Anum Trinh RN) History of Macrosomia: No (11/07/2016 06:42:Anum Trinh RN) History of IUGR: No (11/07/2016 06:42:Anum Trinh RN) History of Hemorrhage: No (11/07/2016 06:42:Anum Trinh RN) History of Loss/Stillborn: No (11/07/2016 06:42:Anum Trinh RN) History of : No (11/07/2016 06:42:Anum Trinh RN) History of D (Rh) Sensitization: No (11/07/2016 06:42:Anum Trinh RN) History Recurrent Loss/Stillborn: No (11/07/2016 06:42:Anum Trinh RN) History Depression/PP Depression: No (11/07/2016 06:42:Anum Trinh RN) History of Uterine Anomaly/QUINTON: No (11/07/2016 06:42:Anum Trinh RN) History of Infertility: No (11/07/2016 06:42:Anum Trinh RN) History of ART Treatment: No (11/07/2016 06:42:Anum Trinh RN) History of QUINTON: No (11/07/2016 06:42:Anum Trinh RN) Comments Obstetrical History: g1-2014, , 40 week induction, elevated blood pressure, no complications g2-current , no complications (11/07/2016 06:42:Anum Trinh RN) MEDICAL HISTORY Med Hx Diabetes: No (11/07/2016 06:42:Anum Trinh RN) Med Hx Hypertension: No (11/07/2016 06:42:Anum Trinh RN) Med Hx Heart Disease: No (11/07/2016 06:42:Anum Trinh RN) Med Hx Autoimmune Disorder: No (11/07/2016 06:42:Anum Trinh RN) Med Hx Kidney Disease/UTI: No (11/07/2016 06:42:Anum Trinh RN) Med Hx Neurologic/Epilepsy: No (11/07/2016 06:42:Anum Trinh RN) Med Hx Psychiatric Disorders: No (11/07/2016 06:42:Anum Trinh RN) Med Hx Hepatitis/Liver Disease: No (11/07/2016 06:42:Anum Trinh RN) Med Hx Varicosities/Phlebitis: No (11/07/2016 06:42:Anum Trinh RN) Med Hx Thyroid Dysfunction: No (11/07/2016 06:42:Anum Trinh RN) Med Hx Trauma/Violence: No (11/07/2016 06:42:Anum Trinh RN) Med Hx Blood Transfusion: No (11/07/2016 06:42:Anum Trinh RN) Med Hx Pulmonary (Asthma,TB): No (11/07/2016 06:42:Anum Trinh RN) Med Hx Breast: No (11/07/2016 06:42:Anum Trinh RN) Med Hx PAINT SPECIALIST Surgery: No (11/07/2016 06:42:Anum Trinh RN) Med Hx Hospitalization/Surgery: Yes (11/07/2016 06:42:Anum Trinh RN) Med Hx Anesthetic Complications: No (11/07/2016 06:42:Anum Trinh RN) Med Hx Abnormal Pap Smear: No (11/07/2016 06:42:Anum Trinh RN) Other Medical Diseases: No (11/07/2016 06:42:Anum Trinh RN) Med Hx Significant Family Hx: No (11/07/2016 06:42:Anum Trinh RN) Details of Med/Surg Hx: x 1 (11/07/2016 06:42:Anum Trinh RN) INFECTIOUS HISTORY Inf Hx Gonorrhea: No (11/07/2016 06:42:Anum Trinh RN) Inf Hx Chlamydia: No (11/07/2016 06:42:Anum Trinh RN) Inf Hx Syphilis: No (11/07/2016 06:42:Anum rTinh RN) Inf Hx HIV/AIDS: No (11/07/2016 06:42:Anum Trinh RN) Inf Hx Human Papilloma Virus: No (11/07/2016 06:42:Anum Trinh RN) Inf Hx Pt/Partner Genital Herpes: No (11/07/2016 06:42:Anum Trinh RN) Inf Hx Tuberculosis/Exposure: No (11/07/2016 06:42:Anum Trinh RN) Inf Hx Hepatitis B,C: No (11/07/2016 06:42:Anum Trinh RN) Inf Hx Rash or Viral Illness: No (11/07/2016 06:42:Anum Trinh RN) GENETIC HISTORY Gen Hx Age >=35 at JOSLYN: No (11/07/2016 06:42:Anum Trinh RN) Gen Hx Thalassemia: No (11/07/2016 06:42:Anum Trinh RN) Gen Hx Congenital Heart Defect: No (11/07/2016 06:42:Anum Trinh RN) Gen Hx Neural Tube Defect: No (11/07/2016 06:42:Anum Trinh RN) Gen Hx Down's Syndrome: No (11/07/2016 06:42:Anum Trinh RN) Gen Hx Joselito-Sachs: No (11/07/2016 06:42:Anum Trinh RN) Gen Hx Deja: No (11/07/2016 06:42:Anum Trinh RN) Gen Hx Familial Dysautonomia: No (11/07/2016 06:42:Anum Trinh RN) Gen Hx Sickle Cell Disease/Trait: No (11/07/2016 06:42:Anum Trinh RN) Gen Hx Hemophilia/Blood Disorder: No (11/07/2016 06:42:Anum Trinh RN) Gen Hx Muscular Dystrophy: No (11/07/2016 06:42:Anum Trinh RN) Gen Hx Cystic Fibrosis: No (11/07/2016 06:42:Anum Trinh RN) Gen Hx Huntingtons Chorea: No (11/07/2016 06:42:Anum Trinh RN) Gen Hx Mental Retardation/Autism: Yes (11/07/2016 06:42:Anum Trinh RN) Gen Hx Tested for Fragile X: No (11/07/2016 06:42:Anum Trinh RN) Gen Hx Other Inher/Chromosomal: No (11/07/2016 06:42:Anum Trinh RN) Gen Hx Maternal Metabolic DO: No (11/07/2016 06:42:Anum Trinh RN) Gen Hx Pt Father or FOB Defect: No (11/07/2016 06:42:Anum Trinh RN) Gen Hx Other Genetic History: Yes (11/07/2016 06:42:Anum Trinh RN) Gen Hx Drugs/Meds since LMP: No (11/07/2016 06:42:Anum Trinh RN) Gen Hx Medications: vitamins, tums (11/07/2016 06:42:Anum Trinh RN) Details of Genetic History: bone disorder with sister (11/07/2016 06:42:Anum Trinh RN)
[2016-11-09 08:37] VITALS: BP 111/71
[2016-11-09] MEDS: SENNOSIDES/DOCUSATE 8.6-50 MG 1 EACH TABLET PO SCH (09:15)
[2016-11-09] MEDS: FERROUS SULFATE 325 MG TABLET PO SCH (09:15)
[2016-11-09] MEDS: DOCUSATE SODIUM 100 MG CAPSULE PO SCH (09:15)
[2016-11-09] MEDS: PRENATAL VITAMIN W-O CA NO5/FE FUMARATE/FA CAPSULE PO SCH (09:15)
--- NOTE | 2016-11-09 10:04 | PDOC PROGRESS REPORT ---
Subjective-OB Subjective: Post Delivery Day: 26 year old. Denies any needs at this time Doing well, hsb at [facility], ready to go home, no c/o, voiding well, bottle feeding, wearing bra Physical Exam (OB) Vital Signs: Temp Pulse Resp BP Pulse Ox 98.2 F 75 16 111/71 100 11/09/16 07:47 11/09/16 07:47 11/09/16 07:47 11/09/16 07:47 11/09/16 07:47 Intake & Output 11/08/16 11/09/16 11/10/16 06:59 06:59 06:59 Intake Total 400 Balance 400 - Lochia Lochia Amount: Scant < 10 ml Lochia Color: Rubra/Red - Abdomen Description: Soft, Round Hernia Present: No Fundal Description: Firm, Midline Fundal Height: u/u - u/2 Objective-Diagnostic Laboratory: 11/08/16 06:54 Assessment and Plan(PN) - Assessment and Plan (1) hematoma right perineum Is this a current diagnosis for this admission?: Yes (2) Vacuum extraction, delivered, current hospitalization Is this a current diagnosis for this admission?: Yes (3) Acute blood loss anemia Is this a current diagnosis for this admission?: Yes - Time Spent with Patient Time with patient: Less than 15 minutes Medications reviewed and adjusted accordingly: Yes - Disposition Anticipated Discharge: Home Within: Other - home today
--- NOTE | 2016-11-09 10:09 | PDOC DISCHARGE SUMMARY ---
Discharge Summary-OB Discharge Date: 11/09/16 - Final Diagnosis (1) hematoma right perineum Is this a current diagnosis for this admission?: Yes (2) Vacuum extraction, delivered, current hospitalization Is this a current diagnosis for this admission?: Yes (3) Acute blood loss anemia Is this a current diagnosis for this admission?: Yes - Discharge Medication Home Medications: Calcium Carbonate [Tums Chewable 500 mg Tab.chew] 1 tab PO PRN PRN 04/23/14 Vit#96/Ferrous Fum/FA [ Tablet] 1 tab PO DAILY 04/23/14 Ferrous Sulfate [Feosol 325 mg Tablet] 325 mg PO BID #0 tablet 11/09/16 Gestational Age: 40,3 Reason(s) for Admission: Onset of Labor, PROM Procedures: NST, Ultrasound Intrapartum Procedure(s): Vacuum Extraction - [place] Data Baby 1 Male at 1 minute: 9 at 5 minutes: 9 Weight: 3.629 kg Home with Mother: Yes Complications: No - Diagnosis Test Laboratory: Temp Pulse Resp BP Pulse Ox 98.2 F 75 16 111/71 100 11/09/16 07:47 11/09/16 07:47 11/09/16 07:47 11/09/16 07:47 11/09/16 07:47 11/07/16 11/08/16 07:33 06:54 RBC 3.84 3.34 L Hgb 11.4 L 9.7 L Hct 33.3 L 29.6 L - Discharge information/Instructions Discharge Activity: Activity As Tolerated, No Lifting Over 10 Pounds, Pelvic Rest Discharge Diet: As Tolerated, Regular Disposition: HOME, SELF-CARE Follow up with: [facility] in: 4, Weeks
--- NOTE | 2016-11-10 06:23 | L&D General Admission ---
General Admit Datetime Report Generated by CPN: 11/10/2016 06:00 INFORMATION Patient Age: 26 (11/07/2016 06:28:QS system process) EDC: 11/04/2016 00:00 (11/07/2016 06:42:Mae Alan RN) : 2 (11/07/2016 06:42:Anum Trinh RN) Para: 1 (11/07/2016 06:42:Anum Trinh RN) Term: 1 (11/07/2016 06:42:Anum Trinh RN) : 0 (11/07/2016 06:42:Anum Trinh RN) Spontaneous Abortions: 0 (11/07/2016 06:42:Anum Trinh RN) Induced Abortions: 0 (11/07/2016 06:42:Anum Trinh RN) Livin (11/07/2016 06:42:Anum Trinh RN) Baby, Number in Womb: 1 (11/07/2016 06:42:Anum Trinh RN) CARE Primary [place] Service [facility] (11/07/2016 06:42:Anum Trinh RN) Adequate Care: Yes (11/07/2016 06:42:Anum Trinh RN) Prepregnancy Weight (lb): 110 (11/07/2016 06:42:Anum Trinh RN) Prepregnancy Weight (kg): 50.0 (11/07/2016 06:42:QS system process) Height (in): 66 (11/09/2016 10:17:QS system process) ALLERGIES Medication Allergy: No (11/07/2016 06:42:Anum Trinh RN) Medication Allergies: No Known Allergies (11/07/2016) (11/07/2016 06:42:QS system process) Latex Allergy: No Latex Allergies (11/07/2016 06:42:Anum Trinh RN) Food Allergies: denies (11/07/2016 06:42:Anum Trinh RN) Environmental Allergies: denies (11/07/2016 06:42:Anum Trinh RN) COMMUNICATION Primary Language: Italian (11/07/2016 06:42:Anum Trinh RN) Medical Tx Preferred Language: Italian (11/07/2016 06:42:Anum Trinh RN) Italian Communication Ability: Speaks Italian; Reads Italian (11/07/2016 06:42:Anum Trinh RN) Communication Barrier(s): None (11/07/2016 06:42:Anum Trinh RN) DEMOGRAPHICS Address: [address] [place] [id number] (11/07/2016 06:28:QS system process) Zipcode: [address] (11/07/2016 06:28:QS system process) Home (11/07/2016 06:28:QS system process) SSN: [id number] (11/07/2016 06:28:QS system process) Next of Kin Name: JESSE CISNEROS (11/07/2016 06:28:QS system process) Next of Kin (11/07/2016 06:28:QS system process) Next of Kin Relationship: [place] (11/07/2016 06:28:QS system process) Date of : 1990 (11/07/2016 06:28:QS system process) Marital Status: (11/07/2016 06:28:QS system process) Sex: Female (11/07/2016 06:28:QS system process) Race: (11/07/2016 06:28:QS system process) Ethnicity: Non- or (11/07/2016 06:28:QS system process) Sabianism: None (11/07/2016 06:28:QS system process) DRUG AND ALCOHOL USE Alcohol: No (11/07/2016 06:42:Anum Trinh RN) Cigarettes: Never Smoker. [id number] (11/07/2016 06:42:Anum Trinh RN) Marijuana: No (11/07/2016 06:42:Anum Trinh RN) Cocaine: No (11/07/2016 06:42:Anum Trinh RN) Other Illicit Drugs: No (11/07/2016 06:42:Anum Trinh RN) VACCINE HISTORY Influenza Vaccine: Yes (11/07/2016 06:42:nAum Trinh RN) Influenza Date: 2015 (11/07/2016 06:42:Anum Trinh RN) Pneumococcal Vaccine: No (11/07/2016 06:42:Anum Trinh RN) Tetanus Vaccine: Uncertain (11/07/2016 06:42:Anum Trinh RN) Tdap Vaccine: Yes (11/07/2016 06:42:Anum Trinh RN) Tdap Date: 2015 (11/07/2016 06:42:Anum Trinh RN) Hepatitis B Vaccine: Uncertain (11/07/2016 06:42:Anum Trinh RN) Enrober: [facility] (11/07/2016 06:42:Anum Trinh RN) Feeding Preference: Formula (11/07/2016 06:42:Anum Trinh RN) Benefit of Breast Feed Discussed: Yes (11/07/2016 06:42:Anum Trinh RN) Circumcision: Yes (11/07/2016 06:42:Anum Trinh RN) Classes Attended: No (11/07/2016 06:42:Anum Trinh RN) Tubal Ligation: No (11/07/2016 06:42:Anum Trinh RN) Tubal Authorization Signed: N/A (11/07/2016 06:42:Anum Trinh RN) Consent: N/A (11/07/2016 06:42:Anum Trinh RN) Consent Signed: N/A (11/07/2016 06:42:Anum Trinh RN) Pain Management Plans: Medications; Epidural (11/07/2016 06:42:Anum Trinh RN) Plans for Labor and Delivery: None (11/07/2016 06:42:Anum Trinh RN) Support Person: Jamil Veloz "Azar" (11/07/2016 06:42:Anum Trinh RN) Support Person Relationship: (11/07/2016 06:42:Anum Trinh RN) Cultural/Spritual Practice: Miranda (11/07/2016 06:42:Anum Trinh RN) Spir/Cult Dietary Needs: No (11/07/2016 06:42:Anum Trinh RN) LIVING SITUATION/DISCHARGE PLAN Living Arrangements: House (11/07/2016 06:42:Anum Trinh RN) Adequate Access to:: Electric; Heat; Refrigeration; Plumbing/Running water; Phone; Transportation (11/07/2016 06:42:Anum Trinh RN) WIC Program: [facility] (11/07/2016 06:42:Anum Trinh RN) Discharge Lamps Tester And Inspector Person: Azar (11/07/2016 06:42:Anum Trinh RN) Person to Help after Discharge: Azar (11/07/2016 06:42:Anum Trinh RN) Currently Using Commun Resources: Miranda (11/07/2016 06:42:Anum Trinh RN) Outside Agency/Winter Sports Manager: No (11/07/2016 06:42:Anum Trinh RN) Car Seat for Discharge: Yes (11/07/2016 06:42:Anum Trinh RN) Adoption Requested: No (11/07/2016 06:42:Anum Trinh RN) Pt Contact w/infant Post : N/A (11/07/2016 06:42:Anum Trinh RN) LABS Blood Type: B Positive (Annotations: Data stored by N on behalf of user) (11/07/2016 06:42:Mae Alan RN) Hemoglobin: 9.7 L (11/08/2016 06:54:QS system process) Hematocrit: 29.6 L (11/08/2016 06:54:QS system process) MCV: 89 (11/08/2016 06:54:QS system process) Group Beta Strep: negative (11/07/2016 06:42:Mae Alan RN) Gonorrhea: Negative (11/07/2016 06:42:Mae Alan RN) Chlamydia: Negative (11/07/2016 06:42:Mae Alan RN) RPR/VDRL: Nonreactive (11/07/2016 06:42:Mae Alna RN) Hepatitis B: Negative (11/07/2016 06:42:Mae Alan RN) Rubella: Immune (11/07/2016 06:42:Mae Alan RN) OB/PREVIOUS HISTORY Previous Procedures: Ultrasound; NST (11/07/2016 06:42:Anum Trinh RN) Current Procedures: Ultrasound; NST (11/07/2016 06:42:Anum Trinh RN) History of Previous : No (11/07/2016 06:42:Anum Trinh RN) History of Gestational Diabetes: No (11/07/2016 06:42:Anum Trinh RN) History of PIH: Yes (11/07/2016 06:42:Anum Trinh RN) History of Incompetent Cervix: No (11/07/2016 06:42:Anum Trinh RN) History of Placenta Previa/Abrup: No (11/07/2016 06:42:Anum Trinh RN) History of Macrosomia: No (11/07/2016 06:42:Anum Trinh RN) History of IUGR: No (11/07/2016 06:42:Anum Trinh RN) History of Hemorrhage: No (11/07/2016 06:42:Anum Trinh RN) History of Loss/Stillborn: No (11/07/2016 06:42:Anum Trinh RN) History of : No (11/07/2016 06:42:Anum Trinh RN) History of D (Rh) Sensitization: No (11/07/2016 06:42:Anum Trinh RN) History Recurrent Loss/Stillborn: No (11/07/2016 06:42:Anum Trinh RN) History Depression/PP Depression: No (11/07/2016 06:42:Anum Trinh RN) History of Uterine Anomaly/QUINTON: No (11/07/2016 06:42:Anum Trinh RN) History of Infertility: No (11/07/2016 06:42:Anum Trinh RN) History of ART Treatment: No (11/07/2016 06:42:Anum Trinh RN) History of QUINTON: No (11/07/2016 06:42:Anum Trinh RN) Comments Obstetrical History: g1-2014, , 40 week induction, elevated blood pressure, no complications g2-current , no complications (11/07/2016 06:42:Anum Trinh RN) MEDICAL HISTORY Med Hx Diabetes: No (11/07/2016 06:42:Anum Trinh RN) Med Hx Hypertension: No (11/07/2016 06:42:Anum Trinh RN) Med Hx Heart Disease: No (11/07/2016 06:42:Anum Trinh RN) Med Hx Autoimmune Disorder: No (11/07/2016 06:42:Anum Trinh RN) Med Hx Kidney Disease/UTI: No (11/07/2016 06:42:Anum Trinh RN) Med Hx Neurologic/Epilepsy: No (11/07/2016 06:42:Anum Trinh RN) Med Hx Psychiatric Disorders: No (11/07/2016 06:42:Anum Trinh RN) Med Hx Hepatitis/Liver Disease: No (11/07/2016 06:42:Anum Trinh RN) Med Hx Varicosities/Phlebitis: No (11/07/2016 06:42:Anum Trinh RN) Med Hx Thyroid Dysfunction: No (11/07/2016 06:42:Anum Trinh RN) Med Hx Trauma/Violence: No (11/07/2016 06:42:Anum Trinh RN) Med Hx Blood Transfusion: No (11/07/2016 06:42:Anum Trinh RN) Med Hx Pulmonary (Asthma,TB): No (11/07/2016 06:42:Anum Trinh RN) Med Hx Breast: No (11/07/2016 06:42:Anum Trinh RN) Med Hx PLATING MACHINE OPERATOR Surgery: No (11/07/2016 06:42:Anum Trinh RN) Med Hx Hospitalization/Surgery: Yes (11/07/2016 06:42:Anum Trinh RN) Med Hx Anesthetic Complications: No (11/07/2016 06:42:Anum Trinh RN) Med Hx Abnormal Pap Smear: No (11/07/2016 06:42:Anum Trinh RN) Other Medical Diseases: No (11/07/2016 06:42:Anum Trinh RN) Med Hx Significant Family Hx: No (11/07/2016 06:42:Anum Trinh RN) Details of Med/Surg Hx: x 1 (11/07/2016 06:42:Anum Trinh RN) INFECTIOUS HISTORY Inf Hx Gonorrhea: No (11/07/2016 06:42:Anum Trinh RN) Inf Hx Chlamydia: No (11/07/2016 06:42:Anum Trinh RN) Inf Hx Syphilis: No (11/07/2016 06:42:Anum Trinh RN) Inf Hx HIV/AIDS: No (11/07/2016 06:42:Anum Trinh RN) Inf Hx Human Papilloma Virus: No (11/07/2016 06:42:Anum Trinh RN) Inf Hx Pt/Partner Genital Herpes: No (11/07/2016 06:42:Anum Trinh RN) Inf Hx Tuberculosis/Exposure: No (11/07/2016 06:42:Anum Trinh RN) Inf Hx Hepatitis B,C: No (11/07/2016 06:42:Anum Trinh RN) Inf Hx Rash or Viral Illness: No (11/07/2016 06:42:Anum Trinh RN) GENETIC HISTORY Gen Hx Age >=35 at JOSLYN: No (11/07/2016 06:42:Anum Trinh RN) Gen Hx Thalassemia: No (11/07/2016 06:42:Anum Trinh RN) Gen Hx Congenital Heart Defect: No (11/07/2016 06:42:Anum Trinh RN) Gen Hx Neural Tube Defect: No (11/07/2016 06:42:Anum Trinh RN) Gen Hx Down's Syndrome: No (11/07/2016 06:42:Anum Trinh RN) Gen Hx Joselito-Sachs: No (11/07/2016 06:42:Anum Trinh RN) Gen Hx Deja: No (11/07/2016 06:42:Anum Trinh RN) Gen Hx Familial Dysautonomia: No (11/07/2016 06:42:Anum Trinh RN) Gen Hx Sickle Cell Disease/Trait: No (11/07/2016 06:42:Anum Trinh RN) Gen Hx Hemophilia/Blood Disorder: No (11/07/2016 06:42:Anum Trinh RN) Gen Hx Muscular Dystrophy: No (11/07/2016 06:42:Anum Trinh RN) Gen Hx Cystic Fibrosis: No (11/07/2016 06:42:Anum Trinh RN) Gen Hx Huntingtons Chorea: No (11/07/2016 06:42:Anum Trinh RN) Gen Hx Mental Retardation/Autism: Yes (11/07/2016 06:42:Anum Trinh RN) Gen Hx Tested for Fragile X: No (11/07/2016 06:42:Anum Trinh RN) Gen Hx Other Inher/Chromosomal: No (11/07/2016 06:42:Anum Trinh RN) Gen Hx Maternal Metabolic DO: No (11/07/2016 06:42:Anum Trinh RN) Gen Hx Pt Father or FOB Defect: No (11/07/2016 06:42:Anum Trinh RN) Gen Hx Other Genetic History: Yes (11/07/2016 06:42:Anum Trinh RN) Gen Hx Drugs/Meds since LMP: No (11/07/2016 06:42:Anum Trinh RN) Gen Hx Medications: vitamins, tums (11/07/2016 06:42:Anum Trinh RN) Details of Genetic History: bone disorder with sister (11/07/2016 06:42:Anum Trinh RN)
--- NOTE | 2016-11-10 06:23 | L&D Current Admission ---
Current Admit Datetime Report Generated by CPN: 11/10/2016 06:00 ADMISSION INFORMATION Current Admit Date/Time: 11/07/2016 07:22 (11/07/2016 06:45:Anum Trinh RN) Reason for Admission: Onset of Labor; Rupture of Membranes (11/07/2016 06:45:Anum Trinh RN) Chief Complaint: Contractions; Suspected Rupture of Membranes (11/07/2016 06:45:Anum Trinh RN) Medications During : Vitamin (11/07/2016 06:45:Anum Trinh RN) Meds During -Oth: tums (11/07/2016 06:45:Anum Trinh RN) EGA per Dates: 40.3 (11/07/2016 06:45:QS system process) Method of Arrival: Wheelchair (11/07/2016 06:45:Anum Trinh RN) Reason for Induction: Not Applicable (11/07/2016 06:45:Aunm Trinh RN) Records Available: Yes (11/07/2016 06:45:Anum Trinh RN) General Admission Information: Reviewed (11/07/2016 06:45:Anum Trinh RN) General Admission Reviewed By: GANESH Trinh (11/07/2016 06:45:Anum Trinh RN) BELONGINGS/ADVANCED DIRECTIVES Other Belongings: see valuables (11/07/2016 06:45:Anum Trinh RN) Disposition of Belongings: Kept with Patient (11/07/2016 06:45:Anum Trinh RN) Advance Direct for Healthcare: No, and Wants No Information (11/07/2016 06:45:Anum Trinh RN) Durable Power of Health Care Sanitary Technician: No (11/07/2016 06:45:Anum Trinh RN) Living Will: No (11/07/2016 06:45:Anum Trinh RN) Organ Donor: Yes (11/07/2016 06:45:Anum Trinh RN) Pt Rights Information Given: Yes (11/07/2016 06:45:Anum Trinh RN) Pt Understands Pt Rights: Yes (11/07/2016 06:45:Anum Trinh RN) Patient Rights Comments: given in patient access (11/07/2016 06:45:Anum Trinh RN) LEARNING ASSESSMENT Knowledge Level: Understands L_D Process; Understands Care Activities; Had Pre-Hospital Education; Understands Diagnosis (11/07/2016 06:45:Anum Trinh RN) Barriers to Learning: Pain (11/07/2016 06:45:Anum Trinh RN) Learning Readiness: Motivated (11/07/2016 06:45:Anum Trinh RN) Learns Best By: 1 to 1 Instruction; Reading; Videos; Group Discussion; Demonstration (11/07/2016 06:45:Anum Trinh RN) Learning Needs: Labor and Delivery Process; Pain Management; Symptoms to Report; Treatment Plan; Medication; Diagnosis; Nutrition; Equipment; Infant Care; Community Resources (11/07/2016 06:45:Anum Trinh RN) DOMESTIC VIOLANCE SCREENING Dom Viol Threatened/Hurt: No (11/07/2016 06:45:Anum Trinh RN) Hx of Abuse/Neglect past 2yrs: No (11/07/2016 06:45:Anum Trinh RN) Feel Unsafe Going Home: No (11/07/2016 06:45:Anum Trinh RN) Addt'l Observ Indicating Abuse: No (11/07/2016 06:45:Anum Trinh RN) Reason Unable to Complete Screen: No Opportunity to Talk Privately (11/07/2016 06:45:Anum Trinh RN) Considered Personal Harm/Suicide: No (11/07/2016 06:45:Anum Trinh RN) NUTRITIONAL/FUNCTIONAL SCREENING Problem with Appetite >5 Days: No (11/07/2016 06:45:Anum Trinh RN) Chew/Swallow Difficulties: No (11/07/2016 06:45:Anum Trinh RN) Inappropriate Wt Gain/Loss: No (11/07/2016 06:45:Anum Trinh RN) Presence Skin Breakdown/Ulcer: No (11/07/2016 06:45:Anum Trinh RN) Special Diet: No (11/07/2016 06:45:Anum Trinh RN) Pt Requests Senior Storage Administrator Visit: No (11/07/2016 06:45:Anum Trinh RN) Hx of Any of the Following?: N/A (11/07/2016 06:45:Anum Trinh RN) New Diagnosis of: N/A (11/07/2016 06:45:Anum Trinh RN) Requires Assist w/Ambulation: No (11/07/2016 06:45:Anum Trinh RN) Uses Assist Device to Ambulate: No (11/07/2016 06:45:Anum Trinh RN) Pt Requires Help w/ADL's: No (11/07/2016 06:45:Anum Trinh RN)
[2016-11-10 14:24] LABS: URINE BARBITURATES SCREEN NEGATIVE; URINE METHADONE SCREEN NEGATIVE; URINE PHENCYCLIDINE SCREEN NEGATIVE
--- NOTE | 2016-11-11 06:24 | L&D General Admission ---
General Admit Datetime Report Generated by CPN: 11/11/2016 06:00 INFORMATION Patient Age: 26 (11/07/2016 06:28:QS system process) EDC: 11/04/2016 00:00 (11/07/2016 06:42:Mae Alan RN) : 2 (11/07/2016 06:42:Anum Trinh RN) Para: 1 (11/07/2016 06:42:Anum Trinh RN) Term: 1 (11/07/2016 06:42:Anum Trinh RN) : 0 (11/07/2016 06:42:Anum Trinh RN) Spontaneous Abortions: 0 (11/07/2016 06:42:Anum Trinh RN) Induced Abortions: 0 (11/07/2016 06:42:Anum Trinh RN) Livin (11/07/2016 06:42:Anum Trinh RN) Baby, Number in Womb: 1 (11/07/2016 06:42:Anum Trinh RN) CARE Primary Paster Operator: [facility] [facility] (11/07/2016 06:42:Anum Trinh RN) Adequate Care: Yes (11/07/2016 06:42:Anum Trinh RN) Prepregnancy Weight (lb): 110 (11/07/2016 06:42:Anum Trinh RN) Prepregnancy Weight (kg): 50.0 (11/07/2016 06:42:QS system process) Height (in): 66 (11/09/2016 10:17:QS system process) ALLERGIES Medication Allergy: No (11/07/2016 06:42:Anum Trinh RN) Medication Allergies: No Known Allergies (11/07/2016) (11/07/2016 06:42:QS system process) Latex Allergy: No Latex Allergies (11/07/2016 06:42:Anum Trinh RN) Food Allergies: denies (11/07/2016 06:42:Anum Trinh RN) Environmental Allergies: denies (11/07/2016 06:42:Anum Trinh RN) COMMUNICATION Primary Language: Sammarinese (11/07/2016 06:42:Anum Trinh RN) Medical Tx Preferred Language: Sammarinese (11/07/2016 06:42:Anum Trinh RN) Sammarinese Communication Ability: Speaks Sammarinese; Reads Sammarinese (11/07/2016 06:42:Anum Trinh RN) Communication Barrier(s): None (11/07/2016 06:42:Anum Trinh RN) DEMOGRAPHICS Address: [address] [place] [id number] (11/07/2016 06:28:QS system process) Zipcode: [address] (11/07/2016 06:28:QS system process) Home (11/07/2016 06:28:QS system process) SSN: [id number] (11/07/2016 06:28:QS system process) Next of Kin Name: JESSE CISNEROS (11/07/2016 06:28:QS system process) Next of Kin (11/07/2016 06:28:QS system process) Next of Kin Relationship: MO (11/07/2016 06:28:QS system process) Date of : 1990 (11/07/2016 06:28:QS system process) Marital Status: (11/07/2016 06:28:QS system process) Sex: Female (11/07/2016 06:28:QS system process) Race: (11/07/2016 06:28:QS system process) Ethnicity: Non- or (11/07/2016 06:28:QS system process) Jainism: None (11/07/2016 06:28:QS system process) DRUG AND ALCOHOL USE Alcohol: No (11/07/2016 06:42:Anum Trinh RN) Cigarettes: Never Smoker. [id number] (11/07/2016 06:42:Anum Trinh RN) Marijuana: No (11/07/2016 06:42:Anum Trinh RN) Cocaine: No (11/07/2016 06:42:Anum Trinh RN) Other Illicit Drugs: No (11/07/2016 06:42:Anum Trinh RN) VACCINE HISTORY Influenza Vaccine: Yes (11/07/2016 06:42:Anum Trinh RN) Influenza Date: 2015 (11/07/2016 06:42:Anum Trinh RN) Pneumococcal Vaccine: No (11/07/2016 06:42:Anum Trinh RN) Tetanus Vaccine: Uncertain (11/07/2016 06:42:Anum Trinh RN) Tdap Vaccine: Yes (11/07/2016 06:42:Anum Trinh RN) Tdap Date: 2015 (11/07/2016 06:42:Anum Trinh RN) Hepatitis B Vaccine: Uncertain (11/07/2016 06:42:Anum Trinh RN) Wood Ski Maker: [facility] (11/07/2016 06:42:Anum Trinh RN) Feeding Preference: Formula (11/07/2016 06:42:Anum Trinh RN) Benefit of Breast Feed Discussed: Yes (11/07/2016 06:42:Anum Trinh RN) Circumcision: Yes (11/07/2016 06:42:Anum Trinh RN) Classes Attended: No (11/07/2016 06:42:Anum Trinh RN) Tubal Ligation: No (11/07/2016 06:42:Anum Trinh RN) Tubal Authorization Signed: N/A (11/07/2016 06:42:Anum Trinh RN) Consent: N/A (11/07/2016 06:42:Anum Trinh RN) Consent Signed: N/A (11/07/2016 06:42:Anum Trinh RN) Pain Management Plans: Medications; Epidural (11/07/2016 06:42:Anum Trinh RN) Plans for Labor and Delivery: None (11/07/2016 06:42:Anum Trinh RN) Support Person: Jamil Veloz "Azar" (11/07/2016 06:42:Anum Trinh RN) Support Person Relationship: (11/07/2016 06:42:Anum Trinh RN) Cultural/Spritual Practice: [place] (11/07/2016 06:42:Anum Trinh RN) Spir/Cult Dietary Needs: No (11/07/2016 06:42:Anum Trinh RN) LIVING SITUATION/DISCHARGE PLAN Living Arrangements: House (11/07/2016 06:42:Anum Trinh RN) Adequate Access to:: Electric; Heat; Refrigeration; Plumbing/Running water; Phone; Transportation (11/07/2016 06:42:Anum Trinh RN) WIC Program: [place] (11/07/2016 06:42:Anum Trinh RN) Discharge Striper Person: Azar (11/07/2016 06:42:Anum Trinh RN) Person to Help after Discharge: Azar (11/07/2016 06:42:Anum Trinh RN) Currently Using Commun Resources: Miranda (11/07/2016 06:42:Anum Trinh RN) Outside Agency/Crown Pouncer: No (11/07/2016 06:42:Anum Trinh RN) Car Seat for Discharge: Yes (11/07/2016 06:42:Anum Trinh RN) Adoption Requested: No (11/07/2016 06:42:Anum Trinh RN) Pt Contact w/infant Post : N/A (11/07/2016 06:42:Anum Trinh RN) LABS Blood Type: B Positive (Annotations: Data stored by N on behalf of user) (11/07/2016 06:42:Mae Alan RN) Hemoglobin: 9.7 L (11/08/2016 06:54:QS system process) Hematocrit: 29.6 L (11/08/2016 06:54:QS system process) MCV: 89 (11/08/2016 06:54:QS system process) Group Beta Strep: negative (11/07/2016 06:42:Mae Alan RN) Gonorrhea: Negative (11/07/2016 06:42:Mae Alan RN) Chlamydia: Negative (11/07/2016 06:42:Mae Alan RN) RPR/VDRL: Nonreactive (11/07/2016 06:42:Mae Alan RN) Hepatitis B: Negative (11/07/2016 06:42:Mae Alan RN) Rubella: Immune (11/07/2016 06:42:Mae Alan RN) OB/PREVIOUS HISTORY Previous Procedures: Ultrasound; NST (11/07/2016 06:42:Anum Trinh RN) Current Procedures: Ultrasound; NST (11/07/2016 06:42:Anum Trinh RN) History of Previous : No (11/07/2016 06:42:Anum Trinh RN) History of Gestational Diabetes: No (11/07/2016 06:42:Anum Trinh RN) History of PIH: Yes (11/07/2016 06:42:Anum Trinh RN) History of Incompetent Cervix: No (11/07/2016 06:42:Anum Trinh RN) History of Placenta Previa/Abrup: No (11/07/2016 06:42:Anum Trinh RN) History of Macrosomia: No (11/07/2016 06:42:Anum Trinh RN) History of IUGR: No (11/07/2016 06:42:Anum Trinh RN) History of Hemorrhage: No (11/07/2016 06:42:Anum Trinh RN) History of Loss/Stillborn: No (11/07/2016 06:42:Anum Trinh RN) History of : No (11/07/2016 06:42:Anum Trinh RN) History of D (Rh) Sensitization: No (11/07/2016 06:42:Anum Trinh RN) History Recurrent Loss/Stillborn: No (11/07/2016 06:42:Anum Trinh RN) History Depression/PP Depression: No (11/07/2016 06:42:Anum Trinh RN) History of Uterine Anomaly/QUINTON: No (11/07/2016 06:42:Anum Trinh RN) History of Infertility: No (11/07/2016 06:42:Anum Trinh RN) History of ART Treatment: No (11/07/2016 06:42:Anum Trinh RN) History of QUINTON: No (11/07/2016 06:42:Anum Trinh RN) Comments Obstetrical History: g1-2014, , 40 week induction, elevated blood pressure, no complications g2-current , no complications (11/07/2016 06:42:Anum Trinh RN) MEDICAL HISTORY Med Hx Diabetes: No (11/07/2016 06:42:Anum Trinh RN) Med Hx Hypertension: No (11/07/2016 06:42:Anum Trinh RN) Med Hx Heart Disease: No (11/07/2016 06:42:Anum Trinh RN) Med Hx Autoimmune Disorder: No (11/07/2016 06:42:Anum Trinh RN) Med Hx Kidney Disease/UTI: No (11/07/2016 06:42:Anum Trinh RN) Med Hx Neurologic/Epilepsy: No (11/07/2016 06:42:Anum Trinh RN) Med Hx Psychiatric Disorders: No (11/07/2016 06:42:Anum Trinh RN) Med Hx Hepatitis/Liver Disease: No (11/07/2016 06:42:Anum Trinh RN) Med Hx Varicosities/Phlebitis: No (11/07/2016 06:42:Anum Trinh RN) Med Hx Thyroid Dysfunction: No (11/07/2016 06:42:Anum Trinh RN) Med Hx Trauma/Violence: No (11/07/2016 06:42:Anum Trinh RN) Med Hx Blood Transfusion: No (11/07/2016 06:42:Anum Trinh RN) Med Hx Pulmonary (Asthma,TB): No (11/07/2016 06:42:Anum Trinh RN) Med Hx Breast: No (11/07/2016 06:42:Anum Trinh RN) Med Hx TERMINAL GAUGER Surgery: No (11/07/2016 06:42:Anum Trinh RN) Med Hx Hospitalization/Surgery: Yes (11/07/2016 06:42:Anum Trinh RN) Med Hx Anesthetic Complications: No (11/07/2016 06:42:Anum Trinh RN) Med Hx Abnormal Pap Smear: No (11/07/2016 06:42:Anum Trinh RN) Other Medical Diseases: No (11/07/2016 06:42:Anum Trinh RN) Med Hx Significant Family Hx: No (11/07/2016 06:42:Anum Trinh RN) Details of Med/Surg Hx: x 1 (11/07/2016 06:42:Anum Trinh RN) INFECTIOUS HISTORY Inf Hx Gonorrhea: No (11/07/2016 06:42:Anum Trinh RN) Inf Hx Chlamydia: No (11/07/2016 06:42:Anum Trinh RN) Inf Hx Syphilis: No (11/07/2016 06:42:Anum Trinh RN) Inf Hx HIV/AIDS: No (11/07/2016 06:42:Anum Trinh RN) Inf Hx Human Papilloma Virus: No (11/07/2016 06:42:Anum Trinh RN) Inf Hx Pt/Partner Genital Herpes: No (11/07/2016 06:42:Anum Trinh RN) Inf Hx Tuberculosis/Exposure: No (11/07/2016 06:42:Anum Trinh RN) Inf Hx Hepatitis B,C: No (11/07/2016 06:42:Anum Trinh RN) Inf Hx Rash or Viral Illness: No (11/07/2016 06:42:Anum Trinh RN) GENETIC HISTORY Gen Hx Age >=35 at JOSLYN: No (11/07/2016 06:42:Anum Trinh RN) Gen Hx Thalassemia: No (11/07/2016 06:42:Anum Trinh RN) Gen Hx Congenital Heart Defect: No (11/07/2016 06:42:Anum Trinh RN) Gen Hx Neural Tube Defect: No (11/07/2016 06:42:Anum Trinh RN) Gen Hx Down's Syndrome: No (11/07/2016 06:42:Anum Trinh RN) Gen Hx Joselito-Sachs: No (11/07/2016 06:42:Anum Trinh RN) Gen Hx Deja: No (11/07/2016 06:42:Anum Trinh RN) Gen Hx Familial Dysautonomia: No (11/07/2016 06:42:Anum Trinh RN) Gen Hx Sickle Cell Disease/Trait: No (11/07/2016 06:42:Anum Trinh RN) Gen Hx Hemophilia/Blood Disorder: No (11/07/2016 06:42:Anum Trinh RN) Gen Hx Muscular Dystrophy: No (11/07/2016 06:42:Anum Trinh RN) Gen Hx Cystic Fibrosis: No (11/07/2016 06:42:Anum Trinh RN) Gen Hx Huntingtons Chorea: No (11/07/2016 06:42:Anum Trinh RN) Gen Hx Mental Retardation/Autism: Yes (11/07/2016 06:42:Anum Trinh RN) Gen Hx Tested for Fragile X: No (11/07/2016 06:42:Anum Trinh RN) Gen Hx Other Inher/Chromosomal: No (11/07/2016 06:42:Anum Trinh RN) Gen Hx Maternal Metabolic DO: No (11/07/2016 06:42:Anum Trinh RN) Gen Hx Pt Father or FOB Defect: No (11/07/2016 06:42:Anum Trinh RN) Gen Hx Other Genetic History: Yes (11/07/2016 06:42:Anum Trinh RN) Gen Hx Drugs/Meds since LMP: No (11/07/2016 06:42:Anum Trinh RN) Gen Hx Medications: vitamins, tums (11/07/2016 06:42:Anum Trinh RN) Details of Genetic History: bone disorder with sister (11/07/2016 06:42:Anum Trinh RN)
--- NOTE | 2016-11-11 06:24 | L&D Current Admission ---
Current Admit Datetime Report Generated by CPN: 11/11/2016 06:00 ADMISSION INFORMATION Current Admit Date/Time: 11/07/2016 07:22 (11/07/2016 06:45:Anum Trinh RN) Reason for Admission: Onset of Labor; Rupture of Membranes (11/07/2016 06:45:Anum Trinh RN) Chief Complaint: Contractions; Suspected Rupture of Membranes (11/07/2016 06:45:Anum Trinh RN) Medications During : Vitamin (11/07/2016 06:45:Anum Trinh RN) Meds During -Oth: tums (11/07/2016 06:45:Anum Trinh RN) EGA per Dates: 40.3 (11/07/2016 06:45:QS system process) Method of Arrival: Wheelchair (11/07/2016 06:45:Anum Trinh RN) Reason for Induction: Not Applicable (11/07/2016 06:45:Anum Trinh RN) Records Available: Yes (11/07/2016 06:45:Anum Trinh RN) General Admission Information: Reviewed (11/07/2016 06:45:Anum Trinh RN) General Admission Reviewed By: GANESH Trinh (11/07/2016 06:45:Anum Trinh RN) BELONGINGS/ADVANCED DIRECTIVES Other Belongings: see valuables (11/07/2016 06:45:Anum Trinh RN) Disposition of Belongings: Kept with Patient (11/07/2016 06:45:Anum Trinh RN) Advance Direct for Healthcare: No, and Wants No Information (11/07/2016 06:45:Anum Trinh RN) Durable Power of Bank Clerk: No (11/07/2016 06:45:Anum Trinh RN) Living Will: No (11/07/2016 06:45:Anum rTinh RN) Organ Donor: Yes (11/07/2016 06:45:Anum Trinh RN) Pt Rights Information Given: Yes (11/07/2016 06:45:Anum Trinh RN) Pt Understands Pt Rights: Yes (11/07/2016 06:45:Anum Trinh RN) Patient Rights Comments: given in patient access (11/07/2016 06:45:Anum Trinh RN) LEARNING ASSESSMENT Knowledge Level: Understands L_D Process; Understands Care Activities; Had Pre-Hospital Education; Understands Diagnosis (11/07/2016 06:45:Anum Trinh RN) Barriers to Learning: Pain (11/07/2016 06:45:Anum Trinh RN) Learning Readiness: Motivated (11/07/2016 06:45:Anum Trinh RN) Learns Best By: 1 to 1 Instruction; Reading; Videos; Group Discussion; Demonstration (11/07/2016 06:45:Anum Trinh RN) Learning Needs: Labor and Delivery Process; Pain Management; Symptoms to Report; Treatment Plan; Medication; Diagnosis; Nutrition; Equipment; Infant Care; Community Resources (11/07/2016 06:45:Anum Trinh RN) DOMESTIC VIOLANCE SCREENING Dom Viol Threatened/Hurt: No (11/07/2016 06:45:Anum Trinh RN) Hx of Abuse/Neglect past 2yrs: No (11/07/2016 06:45:Anum Trinh RN) Feel Unsafe Going Home: No (11/07/2016 06:45:Anum Trinh RN) Addt'l Observ Indicating Abuse: No (11/07/2016 06:45:Anum Trinh RN) Reason Unable to Complete Screen: No Opportunity to Talk Privately (11/07/2016 06:45:Anum Trinh RN) Considered Personal Harm/Suicide: No (11/07/2016 06:45:Anum Trinh RN) NUTRITIONAL/FUNCTIONAL SCREENING Problem with Appetite >5 Days: No (11/07/2016 06:45:Anum Trinh RN) Chew/Swallow Difficulties: No (11/07/2016 06:45:Anum Trinh RN) Inappropriate Wt Gain/Loss: No (11/07/2016 06:45:Anum Trinh RN) Presence Skin Breakdown/Ulcer: No (11/07/2016 06:45:Anum Trinh RN) Special Diet: No (11/07/2016 06:45:Anum Trinh RN) Pt Requests Proof Technician Visit: No (11/07/2016 06:45:Anum Trinh RN) Hx of Any of the Following?: N/A (11/07/2016 06:45:Anum Trinh RN) New Diagnosis of: N/A (11/07/2016 06:45:Anum Trinh RN) Requires Assist w/Ambulation: No (11/07/2016 06:45:Anum Trinh RN) Uses Assist Device to Ambulate: No (11/07/2016 06:45:Anum Trinh RN) Pt Requires Help w/ADL's: No (11/07/2016 06:45:Anum Trinh RN)
--- NOTE | 2016-11-12 06:25 | L&D General Admission ---
General Admit Datetime Report Generated by CPN: 11/12/2016 06:00 INFORMATION Patient Age: 26 (11/07/2016 06:28:QS system process) EDC: 11/04/2016 00:00 (11/07/2016 06:42:Mae Alan RN) : 2 (11/07/2016 06:42:Anum Trinh RN) Para: 1 (11/07/2016 06:42:Anum Trinh RN) Term: 1 (11/07/2016 06:42:Anum Trinh RN) : 0 (11/07/2016 06:42:Anum Trinh RN) Spontaneous Abortions: 0 (11/07/2016 06:42:Anum Trinh RN) Induced Abortions: 0 (11/07/2016 06:42:Anum Trinh RN) Livin (11/07/2016 06:42:Anum Trinh RN) Baby, Number in Womb: 1 (11/07/2016 06:42:Anum Trinh RN) CARE [facility] Sculpture Conservator[facility] (11/07/2016 06:42:Anum Trinh RN) Adequate Care: Yes (11/07/2016 06:42:Anum Trinh RN) Prepregnancy Weight (lb): 110 (11/07/2016 06:42:Anum Trinh RN) Prepregnancy Weight (kg): 50.0 (11/07/2016 06:42:QS system process) Height (in): 66 (11/09/2016 10:17:QS system process) ALLERGIES Medication Allergy: No (11/07/2016 06:42:Anum Trinh RN) Medication Allergies: No Known Allergies (11/07/2016) (11/07/2016 06:42:QS system process) Latex Allergy: No Latex Allergies (11/07/2016 06:42:Anum Trinh RN) Food Allergies: denies (11/07/2016 06:42:Anum Trinh RN) Environmental Allergies: denies (11/07/2016 06:42:Anum Trinh RN) COMMUNICATION Primary Language: Finnish (11/07/2016 06:42:Anum Trinh RN) Medical Tx Preferred Language: Finnish (11/07/2016 06:42:Anum Trinh RN) Finnish Communication Ability: Speaks Finnish; Reads Finnish (11/07/2016 06:42:Anum Trinh RN) Communication Barrier(s): None (11/07/2016 06:42:Anum Trinh RN) DEMOGRAPHICS Address: [address] [place] [id number] (11/07/2016 06:28:QS system process) Zipcode: [address] (11/07/2016 06:28:QS system process) Home (11/07/2016 06:28:QS system process) SSN: [id number] (11/07/2016 06:28:QS system process) Next of Kin Name: JESSE CISNEROS (11/07/2016 06:28:QS system process) Next of Kin (11/07/2016 06:28:QS system process) Next of Kin Relationship: [place] (11/07/2016 06:28:QS system process) Date of : 1990 (11/07/2016 06:28:QS system process) Marital Status: (11/07/2016 06:28:QS system process) Sex: Female (11/07/2016 06:28:QS system process) Race: (11/07/2016 06:28:QS system process) Ethnicity: Non- or (11/07/2016 06:28:QS system process) Islam: None (11/07/2016 06:28:QS system process) DRUG AND ALCOHOL USE Alcohol: No (11/07/2016 06:42:Anum Trinh RN) Cigarettes: Never Smoker. [id number] (11/07/2016 06:42:Anum Trinh RN) Marijuana: No (11/07/2016 06:42:Anum Trinh RN) Cocaine: No (11/07/2016 06:42:Anum Trinh RN) Other Illicit Drugs: No (11/07/2016 06:42:Anum Trinh RN) VACCINE HISTORY Influenza Vaccine: Yes (11/07/2016 06:42:Anum Trinh RN) Influenza Date: 2015 (11/07/2016 06:42:Anum Trinh RN) Pneumococcal Vaccine: No (11/07/2016 06:42:Anum Trinh RN) Tetanus Vaccine: Uncertain (11/07/2016 06:42:Anum Trinh RN) Tdap Vaccine: Yes (11/07/2016 06:42:Anum Trinh RN) Tdap Date: 2015 (11/07/2016 06:42:Anum Trinh RN) Hepatitis B Vaccine: Uncertain (11/07/2016 06:42:Anum Trinh RN) Ssrs Report Developer: [facility] (11/07/2016 06:42:Anum Trinh RN) Feeding Preference: Formula (11/07/2016 06:42:Anum Trinh RN) Benefit of Breast Feed Discussed: Yes (11/07/2016 06:42:Anum Trinh RN) Circumcision: Yes (11/07/2016 06:42:Anum Trinh RN) Classes Attended: No (11/07/2016 06:42:Anum Trinh RN) Tubal Ligation: No (11/07/2016 06:42:Anum Trinh RN) Tubal Authorization Signed: N/A (11/07/2016 06:42:Anum Trinh RN) Consent: N/A (11/07/2016 06:42:Anum Trinh RN) Consent Signed: N/A (11/07/2016 06:42:Anum Trinh RN) Pain Management Plans: Medications; Epidural (11/07/2016 06:42:Anum Trinh RN) Plans for Labor and Delivery: None (11/07/2016 06:42:Anum Trinh RN) Support Person: Jamil Veloz "Azar" (11/07/2016 06:42:Anum Trinh RN) Support Person Relationship: (11/07/2016 06:42:Anum Trinh RN) Cultural/Spritual Practice: [facility] (11/07/2016 06:42:Anum Trinh RN) Spir/Cult Dietary Needs: No (11/07/2016 06:42:Anum Trinh RN) LIVING SITUATION/DISCHARGE PLAN Living Arrangements: House (11/07/2016 06:42:Anum Trinh RN) Adequate Access to:: Electric; Heat; Refrigeration; Plumbing/Running water; Phone; Transportation (11/07/2016 06:42:Anum Trinh RN) WIC Program: [facility] (11/07/2016 06:42:Anum Trinh RN) Discharge Design Engineer Products Person: Azar (11/07/2016 06:42:Anum Trinh RN) Person to Help after Discharge: Azar (11/07/2016 06:42:Anum Trinh RN) Currently Using Commun Resources: Miranda (11/07/2016 06:42:Anum Trinh RN) Outside Agency/Teradata Solution Architect: No (11/07/2016 06:42:Anum Trinh RN) Car Seat for Discharge: Yes (11/07/2016 06:42:Anum Trinh RN) Adoption Requested: No (11/07/2016 06:42:Anum Trinh RN) Pt Contact w/infant Post : N/A (11/07/2016 06:42:Anum Trinh RN) LABS Blood Type: B Positive (Annotations: Data stored by N on behalf of user) (11/07/2016 06:42:Mae Alan RN) Hemoglobin: 9.7 L (11/08/2016 06:54:QS system process) Hematocrit: 29.6 L (11/08/2016 06:54:QS system process) MCV: 89 (11/08/2016 06:54:QS system process) Group Beta Strep: negative (11/07/2016 06:42:Mae Alan RN) Gonorrhea: Negative (11/07/2016 06:42:Mae Alan RN) Chlamydia: Negative (11/07/2016 06:42:Mae Alan RN) RPR/VDRL: Nonreactive (11/07/2016 06:42:Mae Alan RN) Hepatitis B: Negative (11/07/2016 06:42:Mae Alan RN) Rubella: Immune (11/07/2016 06:42:Mae Alan RN) OB/PREVIOUS HISTORY Previous Procedures: Ultrasound; NST (11/07/2016 06:42:Anum Trinh RN) Current Procedures: Ultrasound; NST (11/07/2016 06:42:Anum Trinh RN) History of Previous : No (11/07/2016 06:42:Anum Trinh RN) History of Gestational Diabetes: No (11/07/2016 06:42:Anum Trinh RN) History of PIH: Yes (11/07/2016 06:42:Anum Trinh RN) History of Incompetent Cervix: No (11/07/2016 06:42:Anum Trinh RN) History of Placenta Previa/Abrup: No (11/07/2016 06:42:Anum Trinh RN) History of Macrosomia: No (11/07/2016 06:42:Anum Trinh RN) History of IUGR: No (11/07/2016 06:42:Anum Trinh RN) History of Hemorrhage: No (11/07/2016 06:42:Anum Trinh RN) History of Loss/Stillborn: No (11/07/2016 06:42:Anum Trinh RN) History of : No (11/07/2016 06:42:Anum Trinh RN) History of D (Rh) Sensitization: No (11/07/2016 06:42:Anum Trinh RN) History Recurrent Loss/Stillborn: No (11/07/2016 06:42:Anum Trinh RN) History Depression/PP Depression: No (11/07/2016 06:42:Anum Trinh RN) History of Uterine Anomaly/QUINTON: No (11/07/2016 06:42:Anum Trinh RN) History of Infertility: No (11/07/2016 06:42:Anum Trinh RN) History of ART Treatment: No (11/07/2016 06:42:Anum Trinh RN) History of QUINTON: No (11/07/2016 06:42:Anum Trinh RN) Comments Obstetrical History: g1-2014, , 40 week induction, elevated blood pressure, no complications g2-current , no complications (11/07/2016 06:42:Anum Trinh RN) MEDICAL HISTORY Med Hx Diabetes: No (11/07/2016 06:42:Anum Trinh RN) Med Hx Hypertension: No (11/07/2016 06:42:Anum Trinh RN) Med Hx Heart Disease: No (11/07/2016 06:42:Anum Trinh RN) Med Hx Autoimmune Disorder: No (11/07/2016 06:42:Anum Trinh RN) Med Hx Kidney Disease/UTI: No (11/07/2016 06:42:Anum Trinh RN) Med Hx Neurologic/Epilepsy: No (11/07/2016 06:42:Anum Trinh RN) Med Hx Psychiatric Disorders: No (11/07/2016 06:42:Anum Trinh RN) Med Hx Hepatitis/Liver Disease: No (11/07/2016 06:42:Anum Trinh RN) Med Hx Varicosities/Phlebitis: No (11/07/2016 06:42:Anum Trinh RN) Med Hx Thyroid Dysfunction: No (11/07/2016 06:42:Anum Trinh RN) Med Hx Trauma/Violence: No (11/07/2016 06:42:Anum Trinh RN) Med Hx Blood Transfusion: No (11/07/2016 06:42:Anum Trinh RN) Med Hx Pulmonary (Asthma,TB): No (11/07/2016 06:42:Anum Trinh RN) Med Hx Breast: No (11/07/2016 06:42:Anum Trinh RN) Med Hx ROADS SUPERVISOR Surgery: No (11/07/2016 06:42:Anum Trinh RN) Med Hx Hospitalization/Surgery: Yes (11/07/2016 06:42:Anum Trinh RN) Med Hx Anesthetic Complications: No (11/07/2016 06:42:Anum Trinh RN) Med Hx Abnormal Pap Smear: No (11/07/2016 06:42:Anum Trinh RN) Other Medical Diseases: No (11/07/2016 06:42:Anum Trinh RN) Med Hx Significant Family Hx: No (11/07/2016 06:42:Anum Trinh RN) Details of Med/Surg Hx: x 1 (11/07/2016 06:42:Anum Trinh RN) INFECTIOUS HISTORY Inf Hx Gonorrhea: No (11/07/2016 06:42:Anum Trinh RN) Inf Hx Chlamydia: No (11/07/2016 06:42:Anum Trinh RN) Inf Hx Syphilis: No (11/07/2016 06:42:Anum Trinh RN) Inf Hx HIV/AIDS: No (11/07/2016 06:42:Anum Trinh RN) Inf Hx Human Papilloma Virus: No (11/07/2016 06:42:Anum Trinh RN) Inf Hx Pt/Partner Genital Herpes: No (11/07/2016 06:42:Anum Trinh RN) Inf Hx Tuberculosis/Exposure: No (11/07/2016 06:42:Anum Trinh RN) Inf Hx Hepatitis B,C: No (11/07/2016 06:42:Anum Trinh RN) Inf Hx Rash or Viral Illness: No (11/07/2016 06:42:Anum Trinh RN) GENETIC HISTORY Gen Hx Age >=35 at JOSLYN: No (11/07/2016 06:42:Anum Trinh RN) Gen Hx Thalassemia: No (11/07/2016 06:42:Anum Trinh RN) Gen Hx Congenital Heart Defect: No (11/07/2016 06:42:Anum Trinh RN) Gen Hx Neural Tube Defect: No (11/07/2016 06:42:Anum Trinh RN) Gen Hx Down's Syndrome: No (11/07/2016 06:42:Anum Trinh RN) Gen Hx Joselito-Sachs: No (11/07/2016 06:42:Anum Trinh RN) Gen Hx Deja: No (11/07/2016 06:42:Anum Trinh RN) Gen Hx Familial Dysautonomia: No (11/07/2016 06:42:Anum Trinh RN) Gen Hx Sickle Cell Disease/Trait: No (11/07/2016 06:42:Anum Trinh RN) Gen Hx Hemophilia/Blood Disorder: No (11/07/2016 06:42:Anum Trinh RN) Gen Hx Muscular Dystrophy: No (11/07/2016 06:42:Anum Trinh RN) Gen Hx Cystic Fibrosis: No (11/07/2016 06:42:Anum Trinh RN) Gen Hx Huntingtons Chorea: No (11/07/2016 06:42:Anum Trinh RN) Gen Hx Mental Retardation/Autism: Yes (11/07/2016 06:42:Anum Trinh RN) Gen Hx Tested for Fragile X: No (11/07/2016 06:42:Anum Trinh RN) Gen Hx Other Inher/Chromosomal: No (11/07/2016 06:42:Anum Trinh RN) Gen Hx Maternal Metabolic DO: No (11/07/2016 06:42:Anum Trinh RN) Gen Hx Pt Father or FOB Defect: No (11/07/2016 06:42:Anum Trinh RN) Gen Hx Other Genetic History: Yes (11/07/2016 06:42:Anum Trinh RN) Gen Hx Drugs/Meds since LMP: No (11/07/2016 06:42:Anum Trinh RN) Gen Hx Medications: vitamins, tums (11/07/2016 06:42:Anum Trinh RN) Details of Genetic History: bone disorder with sister (11/07/2016 06:42:Anum Trinh RN)
--- NOTE | 2016-11-12 06:25 | L&D Current Admission ---
Current Admit Datetime Report Generated by CPN: 11/12/2016 06:00 ADMISSION INFORMATION Current Admit Date/Time: 11/07/2016 07:22 (11/07/2016 06:45:Anum Trinh RN) Reason for Admission: Onset of Labor; Rupture of Membranes (11/07/2016 06:45:Anum Trinh RN) Chief Complaint: Contractions; Suspected Rupture of Membranes (11/07/2016 06:45:Anum Trinh RN) Medications During : Vitamin (11/07/2016 06:45:Anum Trinh RN) Meds During -Oth: tums (11/07/2016 06:45:Anum Trinh RN) EGA per Dates: 40.3 (11/07/2016 06:45:QS system process) Method of Arrival: Wheelchair (11/07/2016 06:45:Anum Trinh RN) Reason for Induction: Not Applicable (11/07/2016 06:45:Anum Trnih RN) Records Available: Yes (11/07/2016 06:45:Anum Trinh RN) General Admission Information: Reviewed (11/07/2016 06:45:Anum Trinh RN) General Admission Reviewed By: GANESH Trinh (11/07/2016 06:45:Anum Trinh RN) BELONGINGS/ADVANCED DIRECTIVES Other Belongings: see valuables (11/07/2016 06:45:Anum Trinh RN) Disposition of Belongings: Kept with Patient (11/07/2016 06:45:Anum Trinh RN) Advance Direct for Healthcare: No, and Wants No Information (11/07/2016 06:45:Anum Trinh RN) Durable Power of Aix System Administrator: No (11/07/2016 06:45:Anum Trinh RN) Living Will: No (11/07/2016 06:45:Anum Trinh RN) Organ Donor: Yes (11/07/2016 06:45:Anum Trinh RN) Pt Rights Information Given: Yes (11/07/2016 06:45:Anum Trinh RN) Pt Understands Pt Rights: Yes (11/07/2016 06:45:Anum Trinh RN) Patient Rights Comments: given in patient access (11/07/2016 06:45:Anum Trinh RN) LEARNING ASSESSMENT Knowledge Level: Understands L_D Process; Understands Care Activities; Had Pre-Hospital Education; Understands Diagnosis (11/07/2016 06:45:Anum Trinh RN) Barriers to Learning: Pain (11/07/2016 06:45:Anum Trinh RN) Learning Readiness: Motivated (11/07/2016 06:45:Anum Trinh RN) Learns Best By: 1 to 1 Instruction; Reading; Videos; Group Discussion; Demonstration (11/07/2016 06:45:Anum Trinh RN) Learning Needs: Labor and Delivery Process; Pain Management; Symptoms to Report; Treatment Plan; Medication; Diagnosis; Nutrition; Equipment; Infant Care; Community Resources (11/07/2016 06:45:Anum Trinh RN) DOMESTIC VIOLANCE SCREENING Dom Viol Threatened/Hurt: No (11/07/2016 06:45:Anum Trinh RN) Hx of Abuse/Neglect past 2yrs: No (11/07/2016 06:45:Anum Trinh RN) Feel Unsafe Going Home: No (11/07/2016 06:45:Anum Trinh RN) Addt'l Observ Indicating Abuse: No (11/07/2016 06:45:Anum Trinh RN) Reason Unable to Complete Screen: No Opportunity to Talk Privately (11/07/2016 06:45:Anum Trinh RN) Considered Personal Harm/Suicide: No (11/07/2016 06:45:Anum Trinh RN) NUTRITIONAL/FUNCTIONAL SCREENING Problem with Appetite >5 Days: No (11/07/2016 06:45:Anum Trinh RN) Chew/Swallow Difficulties: No (11/07/2016 06:45:Anum Trinh RN) Inappropriate Wt Gain/Loss: No (11/07/2016 06:45:Anum Trinh RN) Presence Skin Breakdown/Ulcer: No (11/07/2016 06:45:Anum Trinh RN) Special Diet: No (11/07/2016 06:45:Anum Trinh RN) Pt Requests Elevator Constructor Hydraulic Visit: No (11/07/2016 06:45:Anum Trinh RN) Hx of Any of the Following?: N/A (11/07/2016 06:45:Anum Trinh RN) New Diagnosis of: N/A (11/07/2016 06:45:Anum Trinh RN) Requires Assist w/Ambulation: No (11/07/2016 06:45:Anum Trinh RN) Uses Assist Device to Ambulate: No (11/07/2016 06:45:Anum Trinh RN) Pt Requires Help w/ADL's: No (11/07/2016 06:45:Anum Trinh RN)
--- NOTE | 2016-11-13 06:25 | L&D General Admission ---
General Admit Datetime Report Generated by CPN: 11/13/2016 06:00 INFORMATION Patient Age: 26 (11/07/2016 06:28:QS system process) EDC: 11/04/2016 00:00 (11/07/2016 06:42:Mae Alan RN) : 2 (11/07/2016 06:42:Anum Trinh RN) Para: 1 (11/07/2016 06:42:Anum Trinh RN) Term: 1 (11/07/2016 06:42:Anum Trinh RN) : 0 (11/07/2016 06:42:Anum Trinh RN) Spontaneous Abortions: 0 (11/07/2016 06:42:Anum Trinh RN) Induced Abortions: 0 (11/07/2016 06:42:Anum Trinh RN) Livin (11/07/2016 06:42:Anum Trinh RN) Baby, Number in Womb: 1 (11/07/2016 06:42:Anum Trinh RN) CARE Primary Battery Container Tester Aluminum[facility] (11/07/2016 06:42:Anum Trinh RN) Adequate Care: Yes (11/07/2016 06:42:Anum Trinh RN) Prepregnancy Weight (lb): 110 (11/07/2016 06:42:Anum Trinh RN) Prepregnancy Weight (kg): 50.0 (11/07/2016 06:42:QS system process) Height (in): 66 (11/09/2016 10:17:QS system process) ALLERGIES Medication Allergy: No (11/07/2016 06:42:Anum Trinh RN) Medication Allergies: No Known Allergies (11/07/2016) (11/07/2016 06:42:QS system process) Latex Allergy: No Latex Allergies (11/07/2016 06:42:Anum Trinh RN) Food Allergies: denies (11/07/2016 06:42:Anum Trinh RN) Environmental Allergies: denies (11/07/2016 06:42:Anum Trinh RN) COMMUNICATION Primary Language: Burmese (11/07/2016 06:42:Anum Trinh RN) Medical Tx Preferred Language: Burmese (11/07/2016 06:42:Anum Trinh RN) Burmese Communication Ability: Speaks Burmese; Reads Burmese (11/07/2016 06:42:Anum Trinh RN) Communication Barrier(s): None (11/07/2016 06:42:Anum Trinh RN) DEMOGRAPHICS Address: [address] [place] [id number] (11/07/2016 06:28:QS system process) Zipcode: [address] (11/07/2016 06:28:QS system process) Home (11/07/2016 06:28:QS system process) SSN: [id number] (11/07/2016 06:28:QS system process) Next of Kin Name: JESSE CISNEROS (11/07/2016 06:28:QS system process) Next of Kin (11/07/2016 06:28:QS system process) Next of Kin Relationship: [place] (11/07/2016 06:28:QS system process) Date of : 1990 (11/07/2016 06:28:QS system process) Marital Status: (11/07/2016 06:28:QS system process) Sex: Female (11/07/2016 06:28:QS system process) Race: (11/07/2016 06:28:QS system process) Ethnicity: Non- or (11/07/2016 06:28:QS system process) Caodaism: None (11/07/2016 06:28:QS system process) DRUG AND ALCOHOL USE Alcohol: No (11/07/2016 06:42:Anum Trinh RN) Cigarettes: Never Smoker. [id number] (11/07/2016 06:42:Anum Trinh RN) Marijuana: No (11/07/2016 06:42:Anum Trinh RN) Cocaine: No (11/07/2016 06:42:Anum Trinh RN) Other Illicit Drugs: No (11/07/2016 06:42:Anum Trinh RN) VACCINE HISTORY Influenza Vaccine: Yes (11/07/2016 06:42:Anum Trinh RN) Influenza Date: 2015 (11/07/2016 06:42:Anum Trinh RN) Pneumococcal Vaccine: No (11/07/2016 06:42:Anum Trinh RN) Tetanus Vaccine: Uncertain (11/07/2016 06:42:Anum Trinh RN) Tdap Vaccine: Yes (11/07/2016 06:42:Anum Trinh RN) Tdap Date: 2015 (11/07/2016 06:42:Anum Trinh RN) Hepatitis B Vaccine: Uncertain (11/07/2016 06:42:Anum Trinh RN) Cloth Sponger: [facility] (11/07/2016 06:42:Anum Trinh RN) Feeding Preference: Formula (11/07/2016 06:42:Anum Trinh RN) Benefit of Breast Feed Discussed: Yes (11/07/2016 06:42:Anum Trinh RN) Circumcision: Yes (11/07/2016 06:42:Anum Trinh RN) Classes Attended: No (11/07/2016 06:42:Anum Trinh RN) Tubal Ligation: No (11/07/2016 06:42:Anum Trinh RN) Tubal Authorization Signed: N/A (11/07/2016 06:42:Anum Trinh RN) Consent: N/A (11/07/2016 06:42:Anum Trinh RN) Consent Signed: N/A (11/07/2016 06:42:Anum Trinh RN) Pain Management Plans: Medications; Epidural (11/07/2016 06:42:Anum Trinh RN) Plans for Labor and Delivery: None (11/07/2016 06:42:Anum Trinh RN) Support Person: Jamil Veloz "Azar" (11/07/2016 06:42:Anum Trinh RN) Support Person Relationship: (11/07/2016 06:42:Anum Trinh RN) Cultural/Spritual Practice: [facility] (11/07/2016 06:42:Anum Trinh RN) Spir/Cult Dietary Needs: No (11/07/2016 06:42:Anum Trinh RN) LIVING SITUATION/DISCHARGE PLAN Living Arrangements: House (11/07/2016 06:42:Anum Trinh RN) Adequate Access to:: Electric; Heat; Refrigeration; Plumbing/Running water; Phone; Transportation (11/07/2016 06:42:Anum Trinh RN) WIC Program: [facility] (11/07/2016 06:42:Anum Trinh RN) Discharge Stock Lifter Person: Azar (11/07/2016 06:42:Anum Trinh RN) Person to Help after Discharge: Azar (11/07/2016 06:42:Anum Trinh RN) Currently Using Commun Resources: [facility] (11/07/2016 06:42:Anum Trinh RN) Outside Agency/Biological Technician: No (11/07/2016 06:42:Anum Trinh RN) Car Seat for Discharge: Yes (11/07/2016 06:42:Anum Trinh RN) Adoption Requested: No (11/07/2016 06:42:Anum Trinh RN) Pt Contact w/infant Post : N/A (11/07/2016 06:42:Anum Trinh RN) LABS Blood Type: B Positive (Annotations: Data stored by N on behalf of user) (11/07/2016 06:42:Mae Alan RN) Hemoglobin: 9.7 L (11/08/2016 06:54:QS system process) Hematocrit: 29.6 L (11/08/2016 06:54:QS system process) MCV: 89 (11/08/2016 06:54:QS system process) Group Beta Strep: negative (11/07/2016 06:42:Mae Alan RN) Gonorrhea: Negative (11/07/2016 06:42:Mae Alan RN) Chlamydia: Negative (11/07/2016 06:42:Mae Alan RN) RPR/VDRL: Nonreactive (11/07/2016 06:42:Mae Alan RN) Hepatitis B: Negative (11/07/2016 06:42:Mae Alan RN) Rubella: Immune (11/07/2016 06:42:Mae Alan RN) OB/PREVIOUS HISTORY Previous Procedures: Ultrasound; NST (11/07/2016 06:42:Anum Trinh RN) Current Procedures: Ultrasound; NST (11/07/2016 06:42:Anum Trinh RN) History of Previous : No (11/07/2016 06:42:Anum Trinh RN) History of Gestational Diabetes: No (11/07/2016 06:42:Anum Trinh RN) History of PIH: Yes (11/07/2016 06:42:Anum Trinh RN) History of Incompetent Cervix: No (11/07/2016 06:42:Anum Trinh RN) History of Placenta Previa/Abrup: No (11/07/2016 06:42:nAum Trinh RN) History of Macrosomia: No (11/07/2016 06:42:Anum Trinh RN) History of IUGR: No (11/07/2016 06:42:Anum Trinh RN) History of Hemorrhage: No (11/07/2016 06:42:Anum Trinh RN) History of Loss/Stillborn: No (11/07/2016 06:42:Anum Trinh RN) History of : No (11/07/2016 06:42:Anum Trinh RN) History of D (Rh) Sensitization: No (11/07/2016 06:42:Anum Trinh RN) History Recurrent Loss/Stillborn: No (11/07/2016 06:42:Anum Trinh RN) History Depression/PP Depression: No (11/07/2016 06:42:Anum Trinh RN) History of Uterine Anomaly/QUINTON: No (11/07/2016 06:42:Anum Trinh RN) History of Infertility: No (11/07/2016 06:42:Anum Trinh RN) History of ART Treatment: No (11/07/2016 06:42:Anum Trinh RN) History of QUINTON: No (11/07/2016 06:42:Anum Trinh RN) Comments Obstetrical History: g1-2014, , 40 week induction, elevated blood pressure, no complications g2-current , no complications (11/07/2016 06:42:Anum Trinh RN) MEDICAL HISTORY Med Hx Diabetes: No (11/07/2016 06:42:Anum Trinh RN) Med Hx Hypertension: No (11/07/2016 06:42:Anum Trinh RN) Med Hx Heart Disease: No (11/07/2016 06:42:Anum Trinh RN) Med Hx Autoimmune Disorder: No (11/07/2016 06:42:Anum Trinh RN) Med Hx Kidney Disease/UTI: No (11/07/2016 06:42:Anum Trinh RN) Med Hx Neurologic/Epilepsy: No (11/07/2016 06:42:Anum Trinh RN) Med Hx Psychiatric Disorders: No (11/07/2016 06:42:Anum Trinh RN) Med Hx Hepatitis/Liver Disease: No (11/07/2016 06:42:Anum Trinh RN) Med Hx Varicosities/Phlebitis: No (11/07/2016 06:42:Anum Trinh RN) Med Hx Thyroid Dysfunction: No (11/07/2016 06:42:Anum Trinh RN) Med Hx Trauma/Violence: No (11/07/2016 06:42:Anum Trinh RN) Med Hx Blood Transfusion: No (11/07/2016 06:42:Anum Trinh RN) Med Hx Pulmonary (Asthma,TB): No (11/07/2016 06:42:Anum Trinh RN) Med Hx Breast: No (11/07/2016 06:42:Anum Trinh RN) Med Hx BOSOM PRESSER Surgery: No (11/07/2016 06:42:Anum Trinh RN) Med Hx Hospitalization/Surgery: Yes (11/07/2016 06:42:Anum Trinh RN) Med Hx Anesthetic Complications: No (11/07/2016 06:42:Anum Trinh RN) Med Hx Abnormal Pap Smear: No (11/07/2016 06:42:Anum Trinh RN) Other Medical Diseases: No (11/07/2016 06:42:Anum Trinh RN) Med Hx Significant Family Hx: No (11/07/2016 06:42:Anum Trinh RN) Details of Med/Surg Hx: x 1 (11/07/2016 06:42:Anum Trinh RN) INFECTIOUS HISTORY Inf Hx Gonorrhea: No (11/07/2016 06:42:Anum Trinh RN) Inf Hx Chlamydia: No (11/07/2016 06:42:Anum Trinh RN) Inf Hx Syphilis: No (11/07/2016 06:42:Anum Trinh RN) Inf Hx HIV/AIDS: No (11/07/2016 06:42:Anum Trinh RN) Inf Hx Human Papilloma Virus: No (11/07/2016 06:42:Anum Trinh RN) Inf Hx Pt/Partner Genital Herpes: No (11/07/2016 06:42:Anum Trinh RN) Inf Hx Tuberculosis/Exposure: No (11/07/2016 06:42:Anum Trinh RN) Inf Hx Hepatitis B,C: No (11/07/2016 06:42:Anum Trinh RN) Inf Hx Rash or Viral Illness: No (11/07/2016 06:42:Anum Trinh RN) GENETIC HISTORY Gen Hx Age >=35 at JOSLY[facility]: No (11/07/2016 06:42:Anum Trinh RN) Gen Hx Thalassemia: No (11/07/2016 06:42:Anum Trinh RN) Gen Hx Congenital Heart Defect: No (11/07/2016 06:42:Anum Trinh RN) Gen Hx Neural Tube Defect: No (11/07/2016 06:42:Anum Trinh RN) Gen Hx Down's Syndrome: No (11/07/2016 06:42:Anum Trinh RN) Gen Hx Joselito-Sachs: No (11/07/2016 06:42:Anum Trinh RN) Gen Hx Deja: No (11/07/2016 06:42:Anum Trinh RN) Gen Hx Familial Dysautonomia: No (11/07/2016 06:42:Anum Trinh RN) Gen Hx Sickle Cell Disease/Trait: No (11/07/2016 06:42:Anum Trinh RN) Gen Hx Hemophilia/Blood Disorder: No (11/07/2016 06:42:Anum Trinh RN) Gen Hx Muscular Dystrophy: No (11/07/2016 06:42:Anum Trinh RN) Gen Hx Cystic Fibrosis: No (11/07/2016 06:42:Anum Trinh RN) Gen Hx Huntingtons Chorea: No (11/07/2016 06:42:Anum Trinh RN) Gen Hx Mental Retardation/Autism: Yes (11/07/2016 06:42:Anum Trinh RN) Gen Hx Tested for Fragile X: No (11/07/2016 06:42:Anum Trinh RN) Gen Hx Other Inher/Chromosomal: No (11/07/2016 06:42:Anum Trinh RN) Gen Hx Maternal Metabolic DO: No (11/07/2016 06:42:Anum Trinh RN) Gen Hx Pt Father or FOB Defect: No (11/07/2016 06:42:Anum Trinh RN) Gen Hx Other Genetic History: Yes (11/07/2016 06:42:Anum Trinh RN) Gen Hx Drugs/Meds since LMP: No (11/07/2016 06:42:Anum Trinh RN) Gen Hx Medications: vitamins, tums (11/07/2016 06:42:Anum Trinh RN) Details of Genetic History: bone disorder with sister (11/07/2016 06:42:Anum Trinh RN)
== END 2016-11-09 11:42 | disposition home or self-care (01) | DRG 775 ==
LOC: LC 06:27 → LR 07:20 → 2S 17:00
PROVIDERS: ADMIT Obstetrics & Gynecology; ATTEND Obstetrics & Gynecology
PROC: 10D07Z6 Extraction of Products of Conception, Vacuum, Via Natural or Artificial Opening (ICD-10-PCS; principal; 2016-11-07)
DX: O75.81 Maternal exhaustion complicating labor and delivery (principal); D62 Acute posthemorrhagic anemia; O42.92 Full-term premature rupture of membranes, unspecified as to length of time between rupture and onset of labor; O64.0XX0 Obstructed labor due to incomplete rotation of fetal head, not applicable or unspecified; O76 Abnormality in fetal heart rate and rhythm complicating labor and delivery; O90.81 Anemia of the puerperium; O71.7 Obstetric hematoma of pelvis; Z3A.40 40 weeks gestation of pregnancy; Z37.0 Single live birth
CPT/HCPCS: 36415; 80307; 81005; 84112; 85025; 85027; 86592; 86850; 86900; 86901; J1200; J2590; J3490

== ENCOUNTER 2019-01-04 17:29 | Emergency (ER) | payer OTHER ==
--- NOTE | 2019-01-04 19:53 | ER Document Report ---
HPI - HPI Time Seen by Provider: 01/04/19 19:35 Pain Level: 3 Notes: Patient is an otherwise healthy 28-year-old female who presents with complaint of swollen lymph node near her left ear. She states that this does not cause her any pain or discomfort she does happen to notice it. She denies any recent illness or fevers. She does report she has been under a lot of stress lately. - REPRODUCTIVE Reproductive: DENIES: : Past Medical History - General Information source: Patient - Social History Smoking Status: Never Smoker Frequency of alcohol use: None Family History: Reviewed & Not Pertinent - Medical History Medical History: Negative Surgical Hx: Negative - Immunizations Hx Diphtheria, Pertussis, Tetanus Vaccination: Yes Vertical Provider Document - CONSTITUTIONAL Notes: PHYSICAL EXAMINATION: GENERAL: Well-appearing, well-nourished and in no acute distress. HEAD: Atraumatic, normocephalic. EYES: Pupils equal round extraocular movements intact, conjunctiva are normal. ENT: Nares patent NECK: Normal range of motion, palpable cervical lymph node on left side, nontender. LUNGS: No respiratory distress Musculoskeletal: Normal range of motion NEUROLOGICAL: Normal speech, normal gait. PSYCH: Normal mood, normal affect. SKIN: Warm, Dry, normal turgor, no rashes or lesions noted. - INFECTION CONTROL TRAVEL OUTSIDE OF THE [place] IN LAST 30 DAYS: No Course - Re-evaluation Re-evalutation: Cervical lymphadenopathy palpated. The area is nontender. Causes of cervical lymphadenopathy were discussed with the patient. Patient will follow up with her primary care provider. - Vital Signs Vital signs: Temp Pulse Resp BP Pulse Ox 99.8 F 72 16 143/86 H 100 01/04/19 17:43 01/04/19 17:43 01/04/19 17:43 01/04/19 17:43 01/04/19 17:43 Discharge - Discharge Clinical Impression: Cervical lymphadenopathy Condition: Stable Disposition: HOME, SELF-CARE Additional Instructions: Lymphadenopathy You have enlargement of lymph glands, called lymphadenopathy. Lymph glands filter tissue fluids. They help to fight infection. Most of the time, enlarged lymph glands are not serious. Lymph glands may react to a viral or bacterial infection by becoming sw ollen and painful. When the infection goes away, the glands shrink. Sometimes a lymph gland will remain enlarged for a long time after an infection. Occasionally, a lymph gland may be overwhelmed by infection and form an abscess. If an enlarged lymph gland has signs that are suspicious for tumor, the doctor will recommend a biopsy. A suspicious gland usually is NOT painful, grows very slowly, and is rock-hard to touch. See the doctor or return if there is increasing swelling and redness, high fever, difficulty breathing, or any other change for the worse. Please follow-up with primary care in 1-2 weeks for follow-up. Continue to take your allergy medicine as prescribed. Return to the emergency department with any new or worsening symptoms such as increasing redness, swelling, tenderness, development of high fever or any other worsening symptoms. Referrals: NILSA MALDONADO MD [NO LOCAL MD] - Follow up as needed ROBERT RECINOS MD [ACTIVE STAFF] - Follow up as needed
[2019-01-04 20:00] VITALS: BP 116/79
== END 2019-01-04 20:05 | disposition home or self-care (01) ==
LOC: ER 17:29
DX: R59.0 Localized enlarged lymph nodes (principal)
CPT/HCPCS: 99282

== ENCOUNTER 2019-06-14 18:26 | Emergency (ER) | payer OTHER ==
[2019-06-14 18:31] VITALS: BP 140/82
--- NOTE | 2019-06-14 18:49 | ER Document Report ---
HPI - HPI Time Seen by Provider: 06/14/19 18:43 Pain Level: 1 Notes: Patient is a 28-year-old female no significant past medical history and immunizations reported to be up-to-date including a tetanus 2 years ago who presents complaining of cat bite to the right lateral distal index finger that occurred 3 days ago. Patient states that this was a known stray cat that lives behind her house that they have been keeping an eye on for more than 10 days. Patient states that it has not been acting strangely or acting ill. Patient states that she tried to catch it and startled it which made it nip at her finger. She is able to move her finger without difficulty otherwise. She has noticed some mild swelling near the bite ilya. Denies any headache, fever, URI, sore throat, chest pain, palpitations, syncope, cough, shortness of breath, wheeze, dyspnea, abdominal pain, nausea/vomiting/diarrhea, urinary retention, dysuria, hematuria, loss of control of bowel or bladder, numbness/tingling, muscle paralysis/weakness, or rash. - ROS Systems Reviewed and Negative: Yes All other systems reviewed and negative - REPRODUCTIVE Reproductive: DENIES: : Past Medical History - Social History Smoking Status: Never Smoker Family History: Reviewed & Not Pertinent Renal/ Medical History: Denies: Hx Peritoneal Dialysis - Immunizations Hx Diphtheria, Pertussis, Tetanus Vaccination: Yes Vertical Provider Document - CONSTITUTIONAL Agree With Documented VS: Yes Notes: PHYSICAL EXAMINATION: GENERAL: Well-appearing, well-nourished and in no acute distress. HEAD: Atraumatic, normocephalic. NECK: Normal range of motion, supple without lymphadenopathy. No midline tenderness. LUNGS: Breath sounds clear to auscultation bilaterally and equal. No wheezes rales or rhonchi. HEART: Regular rate and rhythm without murmurs, rubs, gallops. Musculoskeletal: Rt hand/fingers: + 2mm superficial puncture/lac noted to the distal lateral 2nd finger. + mild erythema locally w/o purulence or streaks. I was able to express just scant bloody discharge from the opening. No ecchymosis, deformity, or swelling noted. N/V intact distal. FROM to passive/active at the IP joints of the finger including MCP jt. Strength 5+/5 to network administrator. No other bony tenderness. Extremities: No cyanosis, clubbing, or edema b/l. Peripheral pulses 2+. Capillary refill less than 3 seconds. NEUROLOGICAL: Normal speech, normal gait. Normal sensory, motor exams otherwise unremarkable PSYCH: Normal mood, normal affect. SKIN: see above. No rash - INFECTION CONTROL TRAVEL OUTSIDE OF THE [place] IN LAST 30 DAYS: No Course - Re-evaluation Re-evalutation: 06/14/19 18:47 Patient is an afebrile, well-hydrated, 28-year-old female who presents with a cat bite to the right index finger with mild local reaction and no obvious abscess or significant cellulitis associated. Vitals are acceptable without significant tachycardia, tachypnea, or hypoxia. PE is otherwise unremarkable for any neurovascular compromise, obvious tendon/leg rupture, obvious fract ure/dislocation, foreign body, septic joint. I did review the risk and benefit of rabies vaccination series with the patient in full including outcome if rabies is contracted (i.e. worst case scenario of ) and patient declined at this time. Patient is aware that she may return at any time if she decides to pursue rabies vaccination series. Low suspicion for any other systemic emergent condition at this time. Patient to monitor symptoms closely. Tetanus was updated 2 years ago. Recheck with your PCM in 2 to 3 days. Return to the ED with any other worsening/concerning symptoms. I will send her home with a prescription for Augmentin. Patient is in agreement. - Vital Signs Vital signs: Temp Pulse Resp BP Pulse Ox 98.9 F 91 18 140/82 H 99 06/14/19 18:30 06/14/19 18:30 06/14/19 18:30 06/14/19 18:30 06/14/19 18:30 Discharge - Discharge Clinical Impression: Cat bite Qualifiers: Encounter type: initial encounter Qualified Code(s): W55.01XA - Bitten by cat, initial encounter Condition: Stable Disposition: HOME, SELF-CARE Instructions: Animal Bites ([facility]), Augmentin ([facility]) Additional Instructions: Keep the skin clean Wash with soap and water Tylenol/ibuprofen if needed Triple antibiotic ointment daily Take medication as directed Monitor for any worsening symptoms Recheck with your PCM in 2-3 days Return to the ED with any worsening symptoms and/or development of fever, headache, chest pain, palpitations, syncope, shortness of breath, trouble breathing, abdominal pain, n/v/d, abscess, purulent discharge, red streaks, worsening swelling, or other worsening symptoms that are concerning to you. Prescriptions: Amox Tr/Potassium Clavulanate [Augmentin 875-125 Tablet] 1 tab PO BID 10 Days #20 tablet Forms: Elevated Blood Pressure Referrals: [facility] [Provider Group] - Follow up as needed
== END 2019-06-14 19:03 | disposition home or self-care (01) ==
LOC: ER 18:26
DX: S61.250A Open bite of right index finger without damage to nail, initial encounter (principal); M79.89 Other specified soft tissue disorders; W55.01XA Bitten by cat, initial encounter

== ENCOUNTER 2020-06-07 07:40 | Inpatient (IN) | payer OTHER ==
[2020-06-07] MEDS ORDERED: OXYTOCIN/0.9 % SODIUM CHLORIDE 30 UNIT/500 ML RTUINJ IV PRN ×2 (07:46→18:41)
[2020-06-07 08:36] LABS: APPEARANCE,URINE CLOUDY; BILIRUBIN,URINE NEGATIVE (NEGATIVE); COLOR,URINE YELLOW; GLUCOSE, URINE NEGATIVE (NEGATIVE); KETONES,URINE NEGATIVE (NEGATIVE); LEUKOCYTE ESTERASE,URINE SMALL (NEGATIVE); NITRITE,URINE NEGATIVE (NEGATIVE); PROTEIN,URINE NEGATIVE (NEGATIVE); URINE SPECIFIC GRAVITY 1.012; UROBILINOGEN,URINE NEGATIVE mg/dL (<2.0)
--- NOTE | 2020-06-07 08:43 | Admission Physical ---
Datetime Report Generated by CPN: 06/07/2020 08:43 CURRENT ADMISSION Indication for Induction: Other Indication for Induction- Other: hx of Unstable lie Admit Impression : Term, Intrauterine Admit Impression- Other: Vtx on spot check ultrasound Admit Plan: Admit to Unit; Initiate Labor Protocol ALLERGIES Medication Allergies: No Medication Allergies: No Known Allergies (06/14/2019) Latex: No Latex Allergies OBSTETRICAL HISTORY EDC: 06/07/2020 00:00 : 3 Para: 2 Term: 2 : 0 SAB: 0 IAB: 0 Ectopic: 0 Livin Cesareans: 0 VBACs: 0 Multiple Births: 0 Gestational Diabetes: No Rh Sensitization: No Incompetent Cervix: No QUINTON: No Infertility: No ART Treatment: No Uterine Anomaly: No IUGR: No Hx Previous C/S: No Macrosomia: No Hx Loss/Stillborn: No PIH: No Hx : No Placenta Previa/Abruption: No Depression/PP Depression: No PTL/PROM: No Post Hemorrhage: No Current Procedures: Ultrasound; NST SEE RECORDS Alcohol: No Marijuana : No Cocaine: No Other Illicit Drugs: No Cigarettes: Never Smoker. 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 Heart Disease: No Hosp/Surgery: No Autoimmune Disorder: No Anesthetic Complications: No Kidney Disease: No Abnormal Pap Smear: No Neuro/Epilepsy: No Psychiatric Disorders: No Other Medical Diseases: No Hepatitis/Liver Disease: No Significant Family History: No Varicosities/Phlebitis: No Trauma/Violence : No Thyroid Dysfunction: No INFECTIOUS HISTORY Gonorrhea: No Genital Herpes: No Chlamydia: No Tuberculosis: No Syphilis: No Hepatitis: No HIV/AIDS Exposure: No Rash or Viral Illness: No HPV: No PHYSICAL EXAM General: Normal HEENT: Normal Neurologic: Normal Thyroid: Normal Heart: Normal Lungs: Normal Breast: Normal Back: Normal Abdomen: Normal Genitourinary Exam: Normal Extremities: Normal DTRs: Normal Pelvic Type: Adequate Vital Signs: Reviewed MEMBRANES Membranes: Intact FETUS A Monitoring: External US FHR- Baseline: 135 Variability: Moderate 6-25bpm Accelerations: 15X15 Decelerations: None FHR Category: Category I Admit Comment: at 39.6 weeks, hx of unstable lie, presents for IOL. Pt doing well this morning, denies SROM, strong contractoins or vaginal bleeding. GBS negative, Vtx on spot check ultrasound this morning. Plan for Pitocin since pt was 3 cm in the office on last VE. Pt going to attempt to labor w/out an epidural. PLan of care discussed w/ patient and S.O., she verbalizes understanding. Attending MD is Dr Montez, agrees with plan of care PLANS FOR LABOR AND DELIVERY Labor and Delivery: None Pain Management: Medications Feeding Preference: Formula Benefit of Breast Feed Discussed: Yes Circumcision: N/A INFORMED CONSENT Assignment: Stephanie Montez MD Signature: with User ID: [email or web address] : with User ID: [email or web address]
[2020-06-07 08:44] LABS: ABSOLUTE BASOPHILS # (AUTO) 0.1 10^3/uL (0.0-0.2); ABSOLUTE EOSINOPHILS # (AUTO) 0.2 10^3/uL (0.0-0.6); ABSOLUTE LYMPHOCYTES (AUTO) 3.5 10^3/uL (0.5-4.7); ABSOLUTE MONOCYTES (AUTO) 1.1 10^3/uL (0.1-1.4); ABSOLUTE NEUT (AUTO) 11.3 10^3/uL (1.7-8.2); BASOPHILS % (AUTO) 0.4 % (0-2); EOSINOPHILS % (AUTO) 1.5 % (0-6); HEMATOCRIT 32.9 % (36.0-47.0); HEMOGLOBIN 11.1 g/dL (12.0-15.5); LYMPHOCYTES % (AUTO) 21.8 % (13-45); MEAN CORPUSCULAR HEMOGLOBIN 29.5 pg (27.0-33.4); MEAN CORPUSCULAR HGB CONC 33.7 g/dL (32.0-36.0); MEAN CORPUSCULAR VOLUME 87 fl (80-97); MONOCYTES % (AUTO) 6.8 % (3-13); PLATELET COUNT 248 10^3/uL (150-450); RED BLOOD COUNT 3.77 10^6/uL (3.72-5.28); RED CELL DISTRIBUTION WIDTH 13.5 % (11.5-14.0); SEGMENTED NEUTROPHILS % (AUTO) 69.5 % (42-78); TOTAL CELLS COUNTED % (AUTO) 100 %; WHITE BLOOD COUNT 16.2 10^3/uL (4.0-10.5)
--- NOTE | 2020-06-07 08:44 | L&D Progress Notes ---
PROGRESS NOTES Datetime Report Generated by CPN: 06/07/2020 08:44 PROGRESS NOTE Comment: Hx of RPR+, with TPA test non-reactive MEMBRANES Membranes: Intact SIGNATURE SIGNATURE: [id number];[id number] Assignment: Stephanie Montez MD Signature: with User ID: [email or web address] : with User ID: [email or web address]
[2020-06-07 08:59] LABS: URINE AMPHETAMINES SCREEN NEGATIVE; URINE BARBITURATES SCREEN NEGATIVE; URINE BENZODIAZEPINES SCREEN NEGATIVE; URINE COCAINE SCREEN NEGATIVE; URINE MARIJUANA (THC) SCREEN NEGATIVE; URINE METHADONE SCREEN NEGATIVE; URINE PHENCYCLIDINE SCREEN NEGATIVE
[2020-06-07] MEDS ORDERED: OXYTOCIN 10 UNIT/ML VIAL ONE (09:10)
[2020-06-07] MEDS ORDERED: OXYTOCIN/0.9 % SODIUM CHLORIDE 30 UNIT/500 ML RTUINJ ONE ×2 (09:10→20:50)
[2020-06-07] MEDS ORDERED: MISOPROSTOL 0.2 MG TABLET ONE ×2 (09:10→19:42)
[2020-06-07] MEDS ORDERED: LIDOCAINE 1% INJ-PF (10 MG/ML) 30 ML SDV ONE (09:10)
[2020-06-07] MEDS: RINGERS SOLUTION,LACTATED 1,000 ML IV PRN ×2 (09:36→13:56)
--- NOTE | 2020-06-07 12:40 | L&D Progress Notes ---
PROGRESS NOTES Datetime Report Generated by CPN: 06/07/2020 12:40 PROGRESS NOTE Impression: Reassuring Heart Rate Procedures: Artificial ROM; Sterile Vag Exam Plan: Continue Present Management; Induction Plan Other: position changes encouraged Vital Signs : Reviewed; Within Normal Limits Comment: Pitocin infusing, pt remains comfortable, Ve 3/70/-2, AROM w/ clear slightly blood tinged fluid. Pt considering epidural but going to try to labor w/out one. Position change encouraged. Continue Pitocin LAST VAGINAL EXAM-NURSING Nursing Exam Dilitation: 3.0 Nursing Exam Effacement: 70 Nursing Exam Station: -2 MEMBRANES Membranes: Ruptured Amniotic Fluid Color: Clear FETUS A FHR - Baseline: 130 Monitoring: External US Variability: Moderate 6-25bpm Accelerations: 15X15 Decelerations: None FHR Category: Category I SIGNATURE SIGNATURE: [id number];[id number] Assignment: Stephanie Montez MD Signature: with User ID: [email or web address] : with User ID: [email or web address]
[2020-06-07] MEDS ORDERED: EPHEDRINE SULFATE INJ 50 MG/1 ML AMPULE ONE (13:28)
[2020-06-07] MEDS ORDERED: FENTANYL/BUPIVACAINE/NS/PF 300 MCG/150 ML RTUINJ EPI ONE (13:29)
[2020-06-07] MEDS ORDERED: ROPIVACAINE HCL 0.2% INJ/PF (2 MG/ML) 20 ML SDV ONE (13:29)
[2020-06-07] MEDS ORDERED: FENTANYL CITRATE INJ/PF 100 MCG/2 ML AMPUL ONE (13:30)
--- NOTE | 2020-06-07 15:31 | L&D Progress Notes ---
PROGRESS NOTES Datetime Report Generated by CPN: 06/07/2020 15:31 PROGRESS NOTE Impression: Normal Progression of Labor; Reassuring Heart Rate Procedures: Sterile Vag Exam Plan: Continue Present Management; Induction; Anticipate Vaginal Delivery Plan Other: position changes encouraged Vital Signs : Reviewed; Within Normal Limits Comment: Epidural in place, pt is comfortable. Pitocin infusing, VE stretchy 780/-1. Position changes encouraged, Anticipate LAST VAGINAL EXAM-NURSING Nursing Exam Dilitation: 7.0 Nursing Exam Effacement: 80 Nursing Exam Station: -1 MEMBRANES Membranes: Ruptured Amniotic Fluid Color: Clear FETUS A FHR - Baseline: 125 Monitoring: External US Variability: Moderate 6-25bpm Accelerations: 15X15 Decelerations: None FHR Category: Category I SIGNATURE SIGNATURE: [id number];[id number] Assignment: Stephanie Montez MD Signature: with User ID: [email or web address] : with User ID: [email or web address]
--- NOTE | 2020-06-07 16:39 | L&D Progress Notes ---
PROGRESS NOTES Datetime Report Generated by CPN: 06/07/2020 16:39 PROGRESS NOTE Impression: Reassuring Heart Rate Procedures: Sterile Vag Exam Plan: Continue Present Management; Induction; Anticipate Vaginal Delivery Plan Other: position changes encouraged Vital Signs : Reviewed Comment: Pt remains comfortable w/ the epidural, Pitocin infusing. VE: thick Ant Lip/0/-1. Position changes encouraged and plan to let pt labor down. Pt w/ hx of VAD w/ last delivery 3 years ago w/ 8 lb baby boy. EFW via leapolds 7+10. Pt states she does not feel like this baby seems as big as her last one. Dr Montez informed of pts progress. LAST VAGINAL EXAM-NURSING Nursing Exam Dilitation: 9.5 Nursing Exam Effacement: 100 Nursing Exam Station: -1 MEMBRANES Membranes: Ruptured Amniotic Fluid Color: Clear FETUS A FHR - Baseline: 125 Monitoring: External US Variability: Moderate 6-25bpm Accelerations: 15X15 Decelerations: Early; Variable FHR Category: Category I SIGNATURE SIGNATURE: [id number];10,[id number] Assignment: Stephanie Montez MD Signature: with User ID: [email or web address] : with User ID: [email or web address]
[2020-06-07] MEDS ORDERED: GLYCERIN/WITCH HAZEL LEAF 1 EACH MED..WIPE TP PRN (18:41)
[2020-06-07] MEDS ORDERED: ACETAMINOPHEN 650 MG SUPP.RECT PR PRN (18:41)
[2020-06-07] MEDS ORDERED: PROMETHAZINE HCL INJ 25 MG/1 ML VIAL IV PRN (18:41)
[2020-06-07] MEDS ORDERED: PROMETHAZINE HCL 25 MG SUPP.RECT PR PRN (18:41)
[2020-06-07] MEDS ORDERED: BENZOCAINE/MENTHOL AEROSOL SPRAY 56 ML TOP PRN (18:41)
[2020-06-07] MEDS ORDERED: DIBUCAINE 1% OINTMENT 28 GM TP PRN (18:41)
[2020-06-07] MEDS ORDERED: DIPH/PERTUSS(ACELL)/TETANUS VAC/PF 0.5 ML SYR (>=10YO) IM PRN (18:41)
[2020-06-07] MEDS ORDERED: NA PHOS,M-B/NA PHOS,DI-BA (ADULT) 133 ML ENEMA PR PRN (18:41)
[2020-06-07] MEDS ORDERED: MEASLES,MUMPS&RUBELLA VACC/PF 0.5 ML VIAL SUBCUT PRN (18:41)
[2020-06-07] MEDS ORDERED: DIPHENHYDRAMINE HCL 25 MG CAPSULE PO PRN (18:41)
[2020-06-07] MEDS ORDERED: PSEUDOEPHEDRINE HCL 30 MG TABLET PO PRN (18:41)
[2020-06-07] MEDS ORDERED: MAGNESIUM HYDROXIDE SUSP 30 ML UDCUP PO PRN (18:41)
[2020-06-07] MEDS ORDERED: PROMETHAZINE HCL 25 MG TABLET PO PRN (18:41)
[2020-06-07] MEDS ORDERED: ACETAMINOPHEN 325 MG TABLET PO PRN (18:41)
[2020-06-07] MEDS ORDERED: ZOLPIDEM TARTRATE 5 MG TABLET PO PRN (18:41)
[2020-06-07] MEDS ORDERED: ACETAMINOPHEN WITH CODEINE #3 TABLET PO PRN ×2 (18:41)
--- NOTE | 2020-06-07 19:37 | Warning Signs in Babies ---
VOD Warning Signs Datetime Report Generated by [facility]: 06/07/2020 19:37 VOD#608 -Warning Signs in Babies: Needs to be viewed. (06/07/2020 19:21:Jaqueline Chang RN)
[2020-06-07] MEDS ORDERED: MISOPROSTOL 0.2 MG TABLET PR ONE (19:47)
[2020-06-07] MEDS ORDERED: IBUPROFEN 800 MG TABLET ONE (20:33)
[2020-06-07] MEDS ORDERED: CEFAZOLIN 2 GM/D5W RTU 2 GM/50 ML RTUPB IV ONE (21:59)
--- NOTE | 2020-06-07 21:59 | Delivery Summary ---
Del Sum A-C Datetime Report Generated by CPN: 06/07/2020 21:59 DELIVERY PERSONNEL DELIVERY PERSONNEL: [id number] Delivery Doctor:: Stephanie Montez MD Labor and Delivery Nurse:: CHIRAG Marks Nursery Nurse:: Margarita Hernandez RN Information Strategist/BUSINESS PLANNING ANALYST: Nancy Little, FAMILY LAW PARALEGAL MATERNAL INFORMATION Delivery Anesthesia: Epidural Medications After Delivery: Pitocin 30 Units in 500ml NS/D5W; Cytotec 1000mcg Per Rectum/Vagina Estimated Blood Loss (ml): 50 Delivery QBL: 50 Maternal Complications: Other Other Maternal Complications: unstable lie Provider Comments: VFI delivered in ODALIS presentation. No nuchal cord. Shoulders and body delivered without difficulty. Cord doubly clamped and cut and to maternal abdomen. Placenta delivered intact spontaneously. FF at U. No perineal lacerations. Mother and baby stable upon provider leaving the room. LABOR SUMMARY EDC: 06/07/2020 00:00 No. Babies in Womb: 1 Attempted: No Labor Anesthesia: Epidural LABOR INFORMATION Reason for Induction: Other Reason for Induction- Other: Unstable lie Onset of Labor: 06/07/2020 12:45 Complete Dilatation: 06/07/2020 18:09 Oxytocin: Induction Group B Beta Strep: neg Steroids Given: None Reason Steroids Not Administered: Not Applicable MEMBRANES Membranes Rupture Method: Artificial Rupture of Membranes: 06/07/2020 12:32 Length of Rupture (hr): 5.93 Amniotic Fluid Color: Clear Amniotic Fluid Amount: Small Amniotic Fluid Odor: Normal STAGES OF LABOR Stage 1 hr: 5 Stage 1 min: 24 Stage 2 hr: 0 Stage 2 min: 19 Stage 3 hr: 0 Stage 3 min: 4 Total Time in Labor hr: 5 Total Time in Labor min: 47 VAGINAL DELIVERY Episiotomy: None Laceration #1: None Laceration Extension #1: N/A Laceration Repair: Not Applicable Sponge Count Correct: N/A Sharps Count Correct: N/A CSECTION DELIVERY Primary Indication: N/A Secondary Indication: N/A CSection Incidence: N/A Labor: N/A Elective: N/A CSection Incision: N/A BABY A INFORMATION Infant Delivery Date/Time: 06/07/2020 18:28 Method of Delivery: Vaginal Nurse Controlled Delivery: No Born in Route : No : N/A Forceps: N/A Vacuum Extraction: N/A Shoulder Dystocia : No PRESENTATION/POSITION BABY A Presentation: Cephalic Cephalic Presentation: Vertex Vertex Position: Left Occipital Anterior Breech Presentation: N/A PLACENTA INFORMATION BABY A Placenta Delivery Time : 06/07/2020 18:32 Placenta Method of Delivery: Spontaneous Placenta Status: Delivered SCORES BABY A Heart Rate 1 min: >100 bpm Resp Effort 1 min: Good Cry Reflex Irritability 1 min: Cough or Sneeze or Pulls Away Muscle Tone 1 min: Some Flexion of Extremities Color 1 min: Body [place], Extremities Blue Resuscitation Effort 1 min: Tactile Stimulation SCORE 1 MIN: 8 Heart Rate 5 min: >100 bpm Resp Effort 5 min: Good Cry Reflex Irritability 5 min: Cough or Sneeze or Pulls Away Muscle Tone 5 min: Active Motion Color 5 min: Body [place], Extremities Blue Resuscitation Effort 5 min: Tactile Stimulation SCORE 5 MIN: 9 INFANT INFORMATION BABY A Gestational Age at Delivery: 40.0 Gestational Status: Full Term- 39- 40.6 Weeks Infant Outcome : Liveborn Condition : Stable Sex: Female IDENTIFICATION BABY A Verification Date/Time: 06/07/2020 18:41 ID Band Number: [id number] Mother's Name Verified: Yes Infant RN Verifying Infant: AFeuston, RN and S. Tita, RN WEIGHT/LENGTH BABY A Infant Birthweight (gm): 3449 Infant Weight (lb): 7 Weight (oz): 10 Infant Length (in): 20.00 Infant Length (cm): 50.80 CORD INFORMATION BABY A No. Cord Vessels: 3 Nuchal Cord : N/A Cord Blood Taken: Yes-For Storage (Mom's Blood type +) ASSESSMENT BABY A Complications: None Physical Findings at Delivery: Within Normal Limits Respirations: Appears Normal Skin to Skin: Yes Stem Sizer/ALS Called : No Infant Care By: K Crimm RN Transferred To: Remains with Mother BABY B INFORMATION : N/A SIGNATURES Signature: with User ID: [email or web address]
[2020-06-07] MEDS: IBUPROFEN 800 MG TABLET PO SCH (23:30)
[2020-06-08] MEDS: CEFAZOLIN 2 GM/D5W RTU 2 GM/50 ML RTUPB IV SCH ×4 (00:38→18:59)
[2020-06-08] MEDS: FAMOTIDINE 20 MG TABLET PO SCH ×3 (04:12→22:23)
[2020-06-08] MEDS: IBUPROFEN 800 MG TABLET PO SCH ×3 (05:27→22:22)
[2020-06-08 07:08] LABS: HEMATOCRIT 27.5 % (36.0-47.0); HEMOGLOBIN 9.1 g/dL (12.0-15.5); MEAN CORPUSCULAR HEMOGLOBIN 29.1 pg (27.0-33.4); MEAN CORPUSCULAR HGB CONC 33.1 g/dL (32.0-36.0); MEAN CORPUSCULAR VOLUME 88 fl (80-97); PLATELET COUNT 219 10^3/uL (150-450); RED BLOOD COUNT 3.13 10^6/uL (3.72-5.28); RED CELL DISTRIBUTION WIDTH 13.5 % (11.5-14.0); WHITE BLOOD COUNT 17.5 10^3/uL (4.0-10.5)
[2020-06-08] MEDS: SENNOSIDES/DOCUSATE 8.6-50 MG 1 EACH TABLET PO SCH (10:24)
[2020-06-08] MEDS: DOCUSATE SODIUM 100 MG CAPSULE PO SCH ×2 (10:26→18:58)
[2020-06-08] MEDS: PRENATAL VITAMIN W DHA CAPSULE PO SCH (10:26)
[2020-06-08] MEDS: FERROUS SULFATE 325 MG TABLET PO SCH ×2 (10:26→18:58)
--- NOTE | 2020-06-08 10:46 | PDOC PROGRESS REPORT ---
Subjective-OB Progress Note for:: 06/08/20 - PP Day #1, s/p w/ PPH. Pt doing well this morning, needs to void, becerra cath in place. Denies heavy bleeding today on PP floor Physical Exam (OB) Vital Signs: Temp Pulse Resp BP Pulse Ox 98.5 F 68 17 111/61 100 06/08/20 07:56 06/08/20 07:56 06/08/20 07:56 06/08/20 07:56 06/08/20 07:56 Intake & Output 06/07/20 06/08/20 06/09/20 06:59 06:59 06:59 Intake Total 592 Balance 592 Weight 68.5 kg - General General Appearance: Appears well, Alert In distress: None - PIH/Pre-Eclampsia DTR's: 2 + Clonus: Negative Headache: Absent Epigastric Pain: No Visual Changes: No - Lochia Lochia Amount: Scant < 10 ml Lochia Color: Rubra/Red - Abdomen Description: Soft, Round Fundal Description: Firm, Midline Fundal Height: u/u - u/2 - Respiratory Respiratory Status: No respiratory distress - Abdominal Distension: No distension Tenderness: Nontender - Genitourinary Genitourinary Note: becerra cath- clear sofia urine - Extremities Upper extremity: Normal inspection Lower extremities: Normal inspection - Neurological Cognition: Normal Orientation: AAOx4 - Psychological Associated symptoms: Normal affect, Normal mood - Skin Skin Temperature: Warm Skin Moisture: Dry Skin Color: [place] Objective-Diagnostic Laboratory: 06/08/20 06:20 06/08/20 06:20 WBC 17.5 H RBC 3.13 L Hgb 9.1 L Hct 27.5 L MCV 88 MCH 29.1 MCHC 33.1 RDW 13.5 Plt Count 219 Assessment and Plan(PN) - Assessment and Plan (1) (normal spontaneous vaginal delivery) Is this a current diagnosis for this admission?: Yes (2) PPH ( hemorrhage) Qualifiers: hemorrhage type: secondary hemorrhage Qualified Code(s): O72.2 - Delayed and secondary hemorrhage Is this a current diagnosis for this admission?: Yes (3) Acute blood loss anemia Is this a current diagnosis for this admission?: Yes (4) Unstable lie of fetus, delivered Is this a current diagnosis for this admission?: Yes (5) Vaginal delivery Is this a current diagnosis for this admission?: Yes Plan:: d/c becerra cath, pt to void, IV iron infusion, ambulation w/ assist at first. Routine PP orders, watch for increased vaginal bleeding. continue IV abx for 24 hours then d/c - Time Spent with Patient Time with patient: Less than 15 minutes Medications reviewed and adjusted accordingly: Yes - Disposition Anticipated Discharge Disposition: Home, Self Care Anticipated Discharge Timeframe: within 24 hours
[2020-06-09] MEDS: IBUPROFEN 800 MG TABLET PO SCH (05:18)
[2020-06-09 07:40] VITALS: BP 115/74
[2020-06-09] MEDS: PRENATAL VITAMIN W DHA CAPSULE PO SCH (09:49)
[2020-06-09] MEDS: FAMOTIDINE 20 MG TABLET PO SCH (09:49)
[2020-06-09] MEDS: SENNOSIDES/DOCUSATE 8.6-50 MG 1 EACH TABLET PO SCH (09:49)
[2020-06-09] MEDS: FERROUS SULFATE 325 MG TABLET PO SCH (09:49)
[2020-06-09] MEDS: DOCUSATE SODIUM 100 MG CAPSULE PO SCH (09:49)
--- NOTE | 2020-06-09 10:40 | PDOC DISCHARGE SUMMARY ---
Impression - Admit/DC Date/PCP Admission Date/Primary Care Provider: 06/07/20 07:40 Discharge Date: 06/09/20 - PP Day #2, doing well, UOB, ambulating w/out complaints, O+, rubella immune, bottlefeeding - Discharge Diagnosis (1) (normal spontaneous vaginal delivery) Is this a current diagnosis for this admission?: Yes (2) PPH ( hemorrhage) Is this a current diagnosis for this admission?: Yes (3) Acute blood loss anemia Is this a current diagnosis for this admission?: Yes (4) Unstable lie of fetus, delivered Is this a current diagnosis for this admission?: Yes (5) Vaginal delivery Is this a current diagnosis for this admission?: Yes - Additional Information Resuscitation Status: Full Code Discharge Diet: As Tolerated, Regular Discharge Activity: Activity As Tolerated, No Lifting Over 10 Pounds, Pelvic Rest Prescriptions: Ferrous Sulfate [Feosol 325 mg Tablet] 325 mg PO BID #60 tablet Ibuprofen [Motrin 800 mg Tablet] 800 mg PO Q8 #60 tablet Home Medications: Vits96/Iron Fum/Folic [ Tablet] 1 each PO DAILY 06/07/20 Ferrous Sulfate [Feosol 325 mg Tablet] 325 mg PO BID #60 tablet 06/09/20 Ibuprofen [Motrin 800 mg Tablet] 800 mg PO Q8 #60 tablet 06/09/20 HPI Reason(s) for Admission: Induction of Labor Procedures: Ultrasound Intrapartum Procedure(s): Spontaneous Vaginal Delivery Hospital Course Hospital Course: PPH, stable PP course Maternal Morbidity (serious complications experinced by the mother associated with labor and delivery: None of the above Results Laboratory Results: WBC 17.5 10^3/uL (4.0-10.5) H 06/08/20 06:20 RBC 3.13 10^6/uL (3.72-5.28) L 06/08/20 06:20 Hgb 9.1 g/dL (12.0-15.5) L 06/08/20 06:20 Hct 27.5 % (36.0-47.0) L 06/08/20 06:20 MCV 88 fl (80-97) 06/08/20 06:20 MCH 29.1 pg (27.0-33.4) 06/08/20 06:20 MCHC 33.1 g/dL (32.0-36.0) 06/08/20 06:20 RDW 13.5 % (11.5-14.0) 06/08/20 06:20 Plt Count 219 10^3/uL (150-450) 06/08/20 06:20 Lymph % (Auto) 21.8 % (13-45) 06/07/20 08:23 [place] % (Auto) 6.8 % (3-13) 06/07/20 08:23 Eos % (Auto) 1.5 % (0-6) 06/07/20 08:23 Baso % (Auto) 0.4 % (0-2) 06/07/20 08:23 Absolute Neuts (auto) 11.3 10^3/uL (1.7-8.2) H 06/07/20 08:23 Absolute Lymphs (auto) 3.5 10^3/uL (0.5-4.7) 06/07/20 08:23 Absolute Monos (auto) 1.1 10^3/uL (0.1-1.4) 06/07/20 08:23 Absolute Eos (auto) 0.2 10^3/uL (0.0-0.6) 06/07/20 08:23 Absolute Basos (auto) 0.1 10^3/uL (0.0-0.2) 06/07/20 08:23 Seg Neutrophils % 69.5 % (42-78) 06/07/20 08:23 Urine Color YELLOW 06/07/20 07:57 Urine Appearance CLOUDY 06/07/20 07:57 Urine pH 7.0 (5.0-9.0) 06/07/20 07:57 Ur Specific [place] 1.012 06/07/20 07:57 Urine Protein NEGATIVE mg/dL (NEGATIVE) 06/07/20 07:57 Urine Glucose (UA) NEGATIVE mg/dL (NEGATIVE) 06/07/20 07:57 Urine Ketones NEGATIVE mg/dL (NEGATIVE) 06/07/20 07:57 Urine Blood NEGATIVE (NEGATIVE) 06/07/20 07:57 Urine Nitrite NEGATIVE (NEGATIVE) 06/07/20 07:57 Urine Bilirubin NEGATIVE (NEGATIVE) 06/07/20 07:57 Urine Urobilinogen NEGATIVE mg/dL (<2.0) 06/07/20 07:57 Ur Leukocyte Esterase SMALL (NEGATIVE) H 06/07/20 07:57 Urine Ascorbic Acid NEGATIVE (NEGATIVE) 06/07/20 07:57 Urine Opiates Screen NEGATIVE 06/07/20 07:57 Urine Methadone Screen NEGATIVE 06/07/20 07:57 Ur Barbiturates Screen NEGATIVE 06/07/20 07:57 Ur Phencyclidine Scrn NEGATIVE 06/07/20 07:57 Ur Amphetamines Screen NEGATIVE 06/07/20 07:57 U Benzodiazepines Scrn NEGATIVE 06/07/20 07:57 Urine Cocaine Screen NEGATIVE 06/07/20 07:57 U Marijuana (THC) Screen NEGATIVE 06/07/20 07:57 RPR NONREACTIVE (NONREACTIVE) 06/07/20 08:23 Blood Type B POSITIVE 06/07/20 08:23 Antibody Screen NEGATIVE 06/07/20 08:23 Plan Health Concerns: needs iron rich foods Plan of Treatment: d/c home, f/up with [facility] in 4 wks for PP check Time Spent: Less than 30 Minutes
== END 2020-06-09 13:34 | disposition home or self-care (01) | DRG 806 ==
LOC: LR 07:40 → 2S 22:29
PROVIDERS: ADMIT Student in an Organized Health Care Education/Training Program; ATTEND Student in an Organized Health Care Education/Training Program
PROC: 10E0XZZ Delivery of Products of Conception, External Approach (ICD-10-PCS; principal; 2020-06-07)
DX: O32.0XX0 Maternal care for unstable lie, not applicable or unspecified (principal); O72.1 Other immediate postpartum hemorrhage; Z37.0 Single live birth; D62 Acute posthemorrhagic anemia; O90.81 Anemia of the puerperium; Z3A.39 39 weeks gestation of pregnancy
CPT/HCPCS: 1967; 36415; 80307; 81005; 85025; 85027; 86592; 86850; 86900; 86901; 94760; C1758; J0690; J2590; J2795; J3010; J3490